=== PATIENT | male | born 1960 | race Caucasian/White ===

== ENCOUNTER 2016-09-06 08:31 | Day surgery (SDC) | payer BC, OTHER ==
[2016-09-06 09:25] VITALS: BMI 29.6
[2016-09-06] MEDS ORDERED: PROPOFOL 20 ML ONE ×3 (09:35)
[2016-09-06 10:46] VITALS: TEMP 98.2
[2016-09-06 11:58] VITALS: BP 120/71; PULSE 77
--- NOTE | 2016-09-09 13:27 | PATH ---
Surgical Pathology Report Patient Name: LUIS MATOS [facility]. Rec. #: [id number] /Age/Gender: 1960 (Age: 55) / M Account: [id number] Location: U-ENDOSCOPY Taken: 09/06/2016 Received: 09/06/2016 Reported: 09/09/2016 Physicians: Arline Aleman M.D. Specimen(s) Received A: RECTAL POLYP B: PROXIMAL TRANSVERSE COLON POLYP C: RIGHT COLON POLYPS D: CECAL POLYPS BIOPSY Clinical History History of polyps, adenoma surveillance Colon polyps, diverticulosis Final Diagnosis A. RECTUM, POLYP, POLYPECTOMY: TUBULAR ADENOMA. B. COLON, PROXIMAL TRANSVERSE, POLYP, BIOPSY AND POLYPECTOMY: FRAGMENTS OF TUBULAR ADENOMA. C. COLON, RIGHT, POLYPS, BIOPSY: TUBULAR ADENOMA. ADDITIONAL POLYPOID FRAGMENT OF COLONIC MUCOSA WITH FOCAL HYPERPLASTIC CHANGE. D. COLON, CECUM, POLYP, BIOPSY: FRAGMENTS OF TUBULAR ADENOMA. Electronically Signed Royce Lora M.D. Gross Description A. Received in formalin, labeled "rectal polyp" is a negrete, irregular portion of soft tissue measuring 0.4 cm in greatest dimension. The specimen is submitted in toto in one cassette. B. Received in formalin, labeled "proximal transverse colon polyp" are 5 negrete, irregular to polypoid portions of soft tissue ranging from 0.2-0.8 cm in greatest dimension. The specimens are submitted in toto in one cassette. C. Received in formalin, labeled "right colon polyps biopsy" are 2 negrete, irregular portions of soft tissue measuring 0.3 and 0.5 cm in greatest dimension. The specimens are submitted in toto in one cassette. D. Received in formalin, labeled "cecal polyp biopsy" are 2 negrete, irregular portions of soft tissue measuring 0.2 and 0.3 cm in greatest dimension. The specimens are submitted in toto in one cassette. 09/06/201609/06/2016
== END 2016-09-06 11:58 | disposition home or self-care (01) ==
LOC: JASU-ENDO 08:31
PROVIDERS: ATTEND Internal Medicine Gastroenterology
PROC: 0DBL8ZX Excision of Transverse Colon, Via Natural or Artificial Opening Endoscopic, Diagnostic (ICD-10-PCS; 2016-09-06)
PROC: 0DBH8ZX Excision of Cecum, Via Natural or Artificial Opening Endoscopic, Diagnostic (ICD-10-PCS; 2016-09-06)
PROC: 0DBK8ZX Excision of Ascending Colon, Via Natural or Artificial Opening Endoscopic, Diagnostic (ICD-10-PCS; 2016-09-06)
PROC: 0DBP8ZX Excision of Rectum, Via Natural or Artificial Opening Endoscopic, Diagnostic (ICD-10-PCS; principal; 2016-09-06 10:00)
DX: Z12.11 Encounter for screening for malignant neoplasm of colon (principal); Z86.010 Personal history of colon polyps; K62.1 Rectal polyp; D12.2 Benign neoplasm of ascending colon; D12.0 Benign neoplasm of cecum; D12.3 Benign neoplasm of transverse colon; K57.30 Diverticulosis of large intestine without perforation or abscess without bleeding
CPT/HCPCS: 88305-TC

== ENCOUNTER 2016-11-09 18:40 | Observation (INO) | payer BC ==
[2016-11-09 18:45] VITALS: BMI 29.7
[2016-11-09] MEDS ORDERED: morphine CARPU-JECT 4 MG/1 ML DISP.SYRIN IVPUSH ONE (18:54)
--- NOTE | 2016-11-09 19:04 | PDOC ---
History of Present Illness - General History Source: Patient Exam Limitations: No Limitations - History of Present Illness Initial Comments: 11/09/16 19:09 The patient is a 56 year old male, with a significant past medical history of COPD, cardiac stents X6, diabetes, hypertension, hyperlipidemia, GERD, Eosinophilic gastritis, and Hepatitis(Grade 2), who presents to the emergency department complaining of RUQ pain since this morning. The patient reports waking up with dull RUQ pain. However, as the day progressed the pain developed into a sharp, constant, pleuritic, and nonradiating. The patient denies any associated nausea, vomiting, diarrhea, or constipation. Prior to presentation in the ED, the patient states he had his tie his shoes, because he was unable to bend over secondary to pain. The patient denies any dysuria, hematuria , frequency, or urgency. The patient denies any chest pain, shortness of breath , diaphoresis, or palpitations. Allergies: None reported. Past Surgical History: Cardiac stents X6, Laminectomy Social History: Former smoker. Denies alcohol or drug use. Family History: Father: Appendectomy PCP: Dr. Ellis <Amy Valladares - Last Filed: 11/09/16 23:52> - General History Source: Patient Exam Limitations: No Limitations <Larry Hobbs - Last Filed: 11/10/16 01:41> <Varsha Rutherford - Last Filed: 11/11/16 01:34> - General Chief Complaint: Pain Stated Complaint: PAIN, ACUTE Time Seen by Provider: 11/09/16 18:51 Past History <Amy Valladares - Last Filed: 11/09/16 23:52> - Past Medical History Anemia: No Asthma: No Cancer: No Cardiac Disorders: Yes (ASHD.CT-6 STENTS) CVA: No COPD: Yes CHF: No Dementia: No Diabetes: No GI Disorders: Yes (GERD,EOSINOPHILIC GASTRITIS) Disorders: No HTN: No Hypercholesterolemia: Yes Liver Disease: Yes (MILD HEPATITIS GRADE 2) Seizures: No Thyroid Disease: No - Surgical History Abdominal Surgery: No Appendectomy: No Cardiac Surgery: Yes (6 CARDIAC STENTS) Cholecystectomy: No Lung Surgery: No Neurologic Surgery: No Orthopedic Surgery: Yes (LAMINECTOMY) - Psycho/Social/Smoking Cessation Hx Suicidal Ideation: No Smoking Status: No Smoking History: Never smoked Have you smoked in the past 12 months: No Number of Cigarettes Smoked Daily: 2 If you are a former smoker, when did you quit?: 2007 Information on smoking cessation initiated: No Hx Alcohol Use: No Drug/Substance Use Hx: No Substance Use Type: None Hx Substance Use Treatment: No <FabyLarry - Last Filed: 11/10/16 01:41> <Varsha Rutherford - Last Filed: 11/11/16 01:34> - Past Medical History Allergies/Adverse Reactions: Allergies Allergy/AdvReac Type Severity Reaction Status Date / Time No Known Drug Allergies Allergy Verified 11/09/16 18:46 Home Medications: Ambulatory Orders Metoprolol Succinate [Toprol XL -] 25 mg PO DAILY #0 tab.sr.24h 10/31/11 Montelukast Na [Singulair -] 10 mg PO DAILY #0 tablet 10/31/11 Alprazolam [Xanax] 0.25 mg PO PRN PRN 04/05/14 Ramipril 2.5 mg PO DAILY 04/05/14 Rosuvastatin [Crestor -] 10 mg PO DAILY 05/11/16 Aspirin [Baby Aspirin] 81 mg PO Q2D 09/06/16 Carisoprodol [Soma] 350 mg PO PRN PRN 09/06/16 Cholecalciferol (Vitamin D3) [Vitamin D -] 400 unit PO DAILY 09/06/16 Diltiazem HCl [Cartia Xt] 120 mg PO DAILY 09/06/16 Niacin (Inositol Niacinate) [Niacin 500 mg Capsule] 500 mg PO DAILY 09/06/16 Prasugrel HCl [Effient] 5 mg PO DAILY #0 09/06/16 Pregabalin [Lyrica -] 200 mg PO ASDIR 09/06/16 Pregabalin [Lyrica] 100 mg PO AM 09/06/16 Salmeterol/Fluticasone [Advair 100Mcg/50Mcg -] 1 inh IH DAILY 09/06/16 Tiotropium [place] [Spiriva] 1 inh PO BID 09/06/16 Review of Systems - Review of Systems Able to Perform ROS?: Yes Comments:: 11/09/16 19:09 GENERAL/CONSTITUTIONAL: No fever or chills. No weakness. HEAD, EYES, EARS, NOSE AND THROAT: No change in vision. No ear pain or discharge. No sore throat. CARDIOVASCULAR: No chest pain or shortness of breath. RESPIRATORY: No cough, wheezing, or hemoptysis. GASTROINTESTINAL: Yes: RUQ pain. No nausea, vomiting, diarrhea or constipation. GENITOURINARY: No dysuria, frequency, or change in urination. MUSCULOSKELETAL: No joint or muscle swelling or pain. No neck or back pain. SKIN: No rash NEUROLOGIC: No headache, vertigo, loss of consciousness, or change in strength/ sensation. ENDOCRINE: No increased thirst. No abnormal weight change. HEMATOLOGIC/LYMPHATIC: No anemia, easy bleeding, or history of blood clots. ALLERGIC/IMMUNOLOGIC: No hives or skin allergy. <Amy Valladaers - Last Filed: 11/09/16 23:52> *Physical Exam - Vital Signs Last Vital Signs Temp Pulse Resp BP Pulse Ox 98.7 F 89 18 120/77 98 11/09/16 18:42 11/09/16 18:42 11/09/16 18:42 11/09/16 18:42 11/09/16 18:42 - Physical Exam Comments: 11/09/16 19:10 GENERAL: Awake, alert, and fully oriented, in no acute distress HEAD: No signs of trauma EYES: PERRLA, EOMI, sclera anicteric, conjunctiva clear ENT: Auricles normal inspection, hearing grossly normal, nares patent, oropharynx clear without exudates. Moist mucosa NECK: Normal ROM, supple, no lymphadenopathy, JVD, or masses LUNGS: Breath sounds equal, clear to auscultation bilaterally. No wheezes, and no crackles HEART: Regular rate and rhythm, normal S1 and S2, no murmurs, rubs or gallops ABDOMEN: RUQ tenderness. Sunray sign positive. Normoactive bowel sounds. No guarding, no rebound. No masses EXTREMITIES: Normal range of motion, no edema. No clubbing or cyanosis. No cords, erythema, or tenderness NEUROLOGICAL: Cranial nerves II through XII grossly intact. Normal speech, normal gait SKIN: Warm, Dry, normal turgor, no rashes or lesions noted. <Amy Valladares - Last Filed: 11/09/16 23:52> - Vital Signs Last Vital Signs Temp Pulse Resp BP Pulse Ox 98.7 F 89 18 120/77 98 04/15/17 18:42 11/09/16 18:42 11/09/16 18:42 11/09/16 18:42 11/09/16 18:42 <Larry Hobbs - Last Filed: 11/10/16 01:41> - Vital Signs Last Vital Signs Temp Pulse Resp BP Pulse Ox 98.7 F 89 18 120/77 98 11/09/16 18:42 11/09/16 18:42 11/09/16 18:42 11/09/16 18:42 11/09/16 19:01 <Varsha Rutherford - Last Filed: 11/11/16 01:34> Heart Score/ECG Review #1 ECG reviewed & interpreted by me at: 19:20 11/09/16 19:26 NSR 82, no std/marybeth, normal axis, normal intervals, QTC 460 msec <Larry Hobbs - Last Filed: 11/10/16 01:41> ED Treatment Course - LABORATORY CBC & Chemistry Diagram: 11/09/16 19:25 11/09/16 19:25 - RADIOLOGY Radiograph Interpretation: 11/09/16 23:52 EXAM: CT Abdomen and Pelvis INTERPRETED BY: Dr. Murry REVIEWED BY: Dr. Hobbs IMPRESSION: There is no hydronephrosis. There is no ureteral dilatation. There are no renal or ureteral calculi seen. There are no obvious gallstones. No AAA There is moderately abundant stool noted in the right colon. There is no evidence of intestinal obstruction. The appendix is normal in size. Urinary bladder is partially decompressed. There are no bladder calculi. EXAM: Abdominal US INTERPRETED BY: Dr. Murry REVIEWED BY: Dr. Hobbs IMPRESSION: Visualized hepatic parenchyma is echogenic suggesting fatty change in the liver. There are no obvious gallstones. Gallbladder wall is normal in thickness. Common bile duct diameter within normal limits. The pancreas is not well-seen. There is no hydronephrosis on the right. Proximal abdominal aorta has AP dimension of 1.9 cm. <Amy Valladares - Last Filed: 11/09/16 23:52> - LABORATORY CBC & Chemistry Diagram: 11/09/16 19:25 11/09/16 19:25 - RADIOLOGY Radiology Studies Ordered: Category Date Time Status SPIRAL- RENAL-STONE CT [CT] Stat CT Scan 11/09/16 18:54 Ordered ABDOMEN US -LIMITED [US] Stat Ultrasound 11/09/16 18:54 Ordered <Larry Hobbs - Last Filed: 11/10/16 01:41> - LABORATORY CBC & Chemistry Diagram: 11/10/16 06:45 11/09/16 19:25 - ADDITIONAL ORDERS Additional order review: Laboratory Results 11/10/16 11/09/16 11/09/16 03:30 19:30 19:25 INR PTT (Actin FS) Sodium 141 Potassium 4.0 Chloride 104 Carbon Dioxide 26 Anion Gap 11 BUN 9 D Creatinine 0.7 Creat Clearance w eGFR > 60 Random Glucose 82 D Lactic Acid 1.277 Calcium 8.9 Total Bilirubin 0.5 AST 28 ALT 44 Alkaline Phosphatase 94 Creatine Kinase 149 Troponin I < 0.02 Total Protein 7.1 Albumin 3.9 Lipase 138 Urine Color Ltyellow Urine Appearance Clear Urine pH 6.0 Ur Specific [place] 1.011 Urine Protein Negative Urine Glucose (UA) Negative Urine Ketones Negative Urine Blood 1+ H Urine Nitrite Negative Urine Bilirubin Negative Urine Urobilinogen Negative Ur Leukocyte Esterase Negative Urine RBC 7 Urine WBC <1 Hyaline Casts 1 11/09/16 19:25 INR 1.12 PTT (Actin FS) 36.8 H Sodium Potassium Chloride Carbon Dioxide Anion Gap BUN Creatinine Creat Clearance w eGFR Random Glucose Lactic Acid Calcium Total Bilirubin AST ALT Alkaline Phosphatase Creatine Kinase Troponin I Total Protein Albumin Lipase Urine Color Urine Appearance Urine pH Ur Specific [place] Urine Protein Urine Glucose (UA) Urine Ketones Urine Blood Urine Nitrite Urine Bilirubin Urine Urobilinogen Ur Leukocyte Esterase Urine RBC Urine WBC Hyaline Casts 11/09/16 19:25 RBC 5.38 MCV 82.2 MCHC 33.6 RDW 14.8 MPV 7.2 L Neutrophils % 84.1 H Lymphocytes % 8.3 D Monocytes % 5.8 D Eosinophils % 1.5 Basophils % 0.3 - Medications Given in the ED: ED Medications Discontinued Medications Generic Name Dose Route Start Last Admin Trade Name Freq PRN Reason Stop Dose Admin Acetaminophen 1,000 mg 11/09/16 19:28 11/09/16 20:03 Ofirmev Injection - IVPB 11/09/16 19:29 1,000 mg ONCE ONE Administration Cefoxitin Sodium 2 gm 11/10/16 02:05 11/10/16 06:27 Mefoxin (Restricted To Id) - IVPB 11/10/16 02:06 Not Given ONCE ONE Protocol Famotidine/Sodium Chloride 50 mls @ 100 mls/hr 11/09/16 23:33 11/10/16 00:00 Pepcid 20 Mg Premixed Ivpb - IVPB 11/10/16 00:02 100 mls/hr ONCE ONE Administration Cefoxitin Sodium 2 gm/ 100 mls @ 200 mls/hr 11/10/16 03:45 11/10/16 04:04 Dextrose IVPB 11/10/16 04:14 200 mls/hr ONCE ONE Administration Magnesium Citrate 300 ml 11/09/16 23:49 11/10/16 00:00 Citroma - PO 11/09/16 23:50 300 ml ONCE ONE Administration Morphine Sulfate 4 mg 11/09/16 18:54 11/09/16 20:02 Morphine Injection - IVPUSH 11/09/16 18:55 4 mg ONCE ONE Administration Morphine Sulfate 4 mg 11/10/16 01:02 11/10/16 03:58 Morphine Injection - IVPUSH 11/10/16 01:03 4 mg ONCE ONE Administration Ondansetron HCl 4 mg 11/09/16 19:57 11/09/16 20:03 Zofran Injection IVPB 11/09/16 19:58 4 mg ONCE ONE Administration Polyethylene Glycol 17 gm 11/10/16 01:21 11/10/16 06:27 Miralax (For Daily Use) - PO 11/10/16 01:22 Not Given ONCE ONE <Varsha Rutherford - Last Filed: 11/11/16 01:34> Medical Decision Making - Medical Decision Making 11/09/16 19:03 A portion of this note was documented by scribe services under my direction. I have reviewed the details of the note, within reason, and agree with the documentation with the following case summary and management plan written by me. Patient treated in the ED. Nursing notes are reviewed and incorporated into the medical decision-making. Vital signs reviewed. Peripheral IV access obtained by the nurse, laboratory studies are drawn and sent, reviewed and interpreted by myself. Vital Signs Temp Pulse Resp BP Pulse Ox 98.7 F 89 18 120/77 98 11/09/16 18:42 11/09/16 18:42 11/09/16 18:42 11/09/16 18:42 11/09/16 18:42 56-year-old male with past medical history of hypertension, diabetes, hyperlipidemia, coronary disease status post 6 stents, COPD presents with right upper quadrant and right-sided pain. Patient reports that he woke up with this pain. Describes it as constant. No associated nausea, vomiting, diarrhea. Denies hematuria or dysuria or fevers. Differential includes renal colic, biliary colic, gastritis, pancreatitis. We' ll obtain labs and obtain imaging including CAT scan and ultrasound. 11/10/16 01:18 CBC, BMP 11/09/16 19:25 11/09/16 19:25 CMP Sodium 141 mmol/L (136-145) 11/09/16 19:25 Potassium 4.0 mmol/L (3.5-5.1) 11/09/16 19:25 Chloride 104 mmol/L (98-107) 11/09/16 19:25 Carbon Dioxide 26 mmol/L (21-32) 11/09/16 19:25 Anion Gap 11 (8-16) 11/09/16 19:25 BUN 9 mg/dL (7-18) D 11/09/16 19:25 Creatinine 0.7 mg/dL (0.7-1.3) 11/09/16 19:25 Creat Clearance w eGFR > 60 (>60) 11/09/16 19:25 Random Glucose 82 mg/dL (74-106) D 11/09/16 19:25 Calcium 8.9 mg/dL (8.5-10.1) 11/09/16 19:25 Total Bilirubin 0.5 mg/dL (0.2-1.0) 11/09/16 19:25 AST 28 U/L (15-37) 11/09/16 19:25 ALT 44 U/L (12-78) 11/09/16 19:25 Alkaline Phosphatase 94 U/L (45-117) 11/09/16 19:25 Creatine Kinase 149 IU/L (39-308) 11/09/16 19:25 Troponin I < 0.02 ng/ml (0.00-0.05) 11/09/16 19:25 Total Protein 7.1 g/dl (6.4-8.2) 11/09/16 19:25 Albumin 3.9 g/dl (3.4-5.0) 11/09/16 19:25 Lipase 138 U/L (73-393) 11/09/16 19:25 Urine Test Results Urine Color Ltyellow 11/09/16 19:30 Urine Appearance Clear 11/09/16 19:30 Urine pH 6.0 (5.0-8.0) 11/09/16 19:30 Ur Specific [place] 1.011 (1.001-1.035) 11/09/16 19:30 Urine Protein Negative (NEGATIVE) 11/09/16 19:30 Urine Glucose (UA) Negative (NEGATIVE) 11/09/16 19:30 Urine Ketones Negative (NEGATIVE) 11/09/16 19: Urine Blood 1+ (NEGATIVE) H 11/09/16 19:30 Urine Nitrite Negative (NEGATIVE) 11/09/16 19: Urine Bilirubin Negative (NEGATIVE) 11/09/16 19:30 Ur Leukocyte Esterase Negative (NEGATIVE) 11/09/16 19:30 Urine RBC 7 /hpf (0-3) 11/09/16 19:30 Urine WBC <1 /hpf (3-5) 11/09/16 19:30 CAT scan the abdomen pelvis noncontrast demonstrated stooling in the right side of the colon but no acute pathology. Patient's ultrasound demonstrates no gallstones. Initially, patient was given magnesium citrate and pepcid, but no improvement in symptoms. Will consider with IV contrast CT scan of abdomen and pelvis to further evaluate abdomen given persistent abdominal pain and WBC of 19. 11/10/16 01:41 Case signed out to oncoming ED attending Dr. Rutherford for further management and disposition. <Larry Hobbs - Last Filed: 11/10/16 01:41> - Medical Decision Making 11/10/16 06:43 Pt was signed out to me. He has a WBC of 19 and he has abd pain. Nothing on sono abdomen and non-contrast CT and/pelvis. Dr. Hbobs ordered an oral/IV contrast CT abd pelvis. I treated pt with mefoxin 2 g and sent off lactic acid. Lactic acid is normal. Pt's CT scan result is normal: Patient Name: Sascha oLng THIS IS A PRELIMINARYREPORT FROM [facility] EXAM: CT abdomen and pelvis with contrast IMAGES: 555 INDICATION: Rule out appendicitis DATE OF SERVICE: 2016-11-10 06:03:20.0 COMPARISON: none FINDINGS : Lung bases are clear. The visualized cardiac chambers are normal size and configuration. Minimal pericardial effusion is noted. Normal liver, gallbladder , pancreas, spleen, adrenal glands and kidneys. The stomach and abdominal small and large bowel are normal. There is no aortic aneurysm. There is no significant retroperitoneal lymphadenopathy. The pelvic small and large bowel are normal. The appendix is normal. The urinary bladder and prostate gland are normal. No pelvic free fluid is identified. There is no significant pelvic lymphadenopathy. Small fat containing bilateral inguinal hernias are noted. IMPRESSION: No evidence of acute pathology. THIS DOCUMENT HAS BEEN ELECTRONICALLY SIGNED We will repeat CBC. If WBC is coming down and pt is feeling better, then we will send pt home with PMD and GI fllow up. I will sign patient out to the day ER doctor. 11/10/16 07:03 WBC came back and pt still complains of pain; I will call Dr. Ellis and admit patient to observation for GI consult and further eval of his pain. 11/11/16 01:34 Pt was admitted to Dr. Sharp. <Varsha Rutherford - Last Filed: 11/11/16 01:34> *DC/Admit/Observation/Transfer - Attestations Scribe Attestion: 11/09/16 19:10 Documentation prepared by Amy Valladares, acting as medical assembly for Larry Hobbs MD. <Amy Valladares - Last Filed: 11/09/16 23:52> <Larry Hobbs - Last Filed: 11/10/16 01:41> - Discharge Dispostion Admit: Yes <Varsha Rutherford - Last Filed: 11/11/16 01:34> Diagnosis at time of Disposition: Abdominal pain Qualifiers: Abdominal location: unspecified location Qualified Code(s): R10.9 - Unspecified abdominal pain - Referrals
[2016-11-09] MEDS ORDERED: ACETAMINOPHEN 1000 MG/100 ML VIAL (NON FORMULARY) IVPB ONE (19:28)
[2016-11-09] MEDS ORDERED: ACETAMINOPHEN INJECTION 100 ML IVPB ONE (19:31)
[2016-11-09 19:34] LABS: BASOPHIL 0.3 % (0-2.0); EOSINOPHIL 1.5 % (0-4.5); MCH 27.6 pg (25.7-33.7); MCHC 33.6 g/dl (32.0-35.9); MEAN CELL VOLUME 82.2 fl (80-96); MEAN PLT VOLUME 7.2 fl (7.5-11.1); NEUTROPHILS 84.1 % (42.8-82.8); PLATELET COUNT 288 K/MM3 (134-434); RDW 14.8 % (11.9-15.9)
[2016-11-09 19:45] LABS: URINE APPEARANCE CLEAR; URINE BILIRUBIN NEGATIVE (NEGATIVE); URINE COLOR LTYELLOW; URINE GLUCOSE (UA) NEGATIVE (NEGATIVE); URINE KETONE NEGATIVE (NEGATIVE); URINE LEUK ESTERASE NEGATIVE (NEGATIVE); URINE NITRITE NEGATIVE (NEGATIVE); URINE PROTEIN NEGATIVE (NEGATIVE); URINE UROBILINOGEN NEGATIVE E.U./dl (0.2-1.0)
[2016-11-09 19:46] LABS: INR 1.12 (0.82-1.09); PROTHROMBIN TIME (PATIENT) 12.4 SEC (9.98-11.88)
[2016-11-09 19:47] LABS: URINE BLOOD 1+ (NEGATIVE)
[2016-11-09 19:48] LABS: URINE HYALINE CAST 1 /lpf; URINE RBC 7 /hpf (0-3); URINE WBC <1 /hpf (3-5)
[2016-11-09 19:49] LABS: ACTIVATED PTT 36.8 SECONDS (26.9-34.4)
[2016-11-09] MEDS ORDERED: ONDANSETRON 4 MG/2 ML VIAL ONE (19:51)
[2016-11-09] MEDS ORDERED: morphine CARPU-JECT 4 MG/1 ML DISP.SYRIN ONE (19:56)
[2016-11-09] MEDS ORDERED: ONDANSETRON 4 MG/2 ML VIAL IVPB ONE (19:57)
[2016-11-09 20:07] LABS: ALBUMIN 3.9 g/dl (3.4-5.0); ANION GAP 11 (8-16); BILIRUBIN,TOTAL 0.5 mg/dL (0.2-1.0); CALCIUM 8.9 mg/dL (8.5-10.1); CO2 26 mmol/L (21-32); COCKROFT - GAULT 143.63; CREATININE 0.7 mg/dL (0.7-1.3); GLUCOSE,RANDOM 82 mg/dL (74-106); SGOT/AST 28 U/L (15-37); SGPT/ALT 44 U/L (12-78); TOT PROT 7.1 g/dl (6.4-8.2)
[2016-11-09 20:09] LABS: ALK PHOS 94 U/L (45-117); TROPONIN I < 0.02 ng/ml (0.00-0.05)
[2016-11-09] MEDS ORDERED: FAMOTIDINE 20 MG/50 ML IVPB 50 ML IVPB ONE ×2 (23:33→23:52)
[2016-11-09] MEDS ORDERED: ACETAMINOPHEN 325 MG TABLET (FP) PO ONE (23:33)
[2016-11-09] MEDS ORDERED: MAG HYDROX/AL HYDROX/SIMETH 30 ML UNIT-DOSE CUP PO ONE (23:33)
[2016-11-09] MEDS ORDERED: MAGNESIUM CITRATE 300 ML BOTTLE PO ONE (23:49)
[2016-11-09] MEDS ORDERED: MAGNESIUM CITRATE 300 ML BOTTLE ONE (23:52)
[2016-11-10] MEDS ORDERED: morphine CARPU-JECT 4 MG/1 ML DISP.SYRIN IVPUSH ONE (01:02)
[2016-11-10] MEDS ORDERED: POLYETHYLENE GLYCOL 3350 119 GM BTL PO ONE (01:21)
[2016-11-10] MEDS ORDERED: cefOXitin SODIUM 2 GM VIAL (RESTRICTED TO ID) IVPB ONE (02:05)
[2016-11-10] MEDS ORDERED: CEFOXITIN SODIUM 2 GM in DEXTROSE 5%-WATER - 100 ML IVPB ONE (03:45)
[2016-11-10] MEDS ORDERED: morphine CARPU-JECT 4 MG/1 ML DISP.SYRIN ONE (03:46)
[2016-11-10 06:55] LABS: BASOPHIL 0.4 % (0-2.0); EOSINOPHIL 1.8 % (0-4.5); MCHC 33.6 g/dl (32.0-35.9); MEAN CELL VOLUME 83.3 fl (80-96); MEAN PLT VOLUME 7.3 fl (7.5-11.1); NEUTROPHILS 83.9 % (42.8-82.8); PLATELET COUNT 263 K/MM3 (134-434); RDW 15.2 % (11.9-15.9); WHITE BLOOD COUNT 12.7 K/mm3 (4.0-10.0)
[2016-11-10] MEDS ORDERED: ALPRAZolam 0.25 MG TABLET PO PRN (08:08)
[2016-11-10] MEDS ORDERED: PATIENT'S OWN MEDICATION (NON-FORMULARY) (Carisoprodol [Soma] 350 MG) PO PRN (08:08)
[2016-11-10] MEDS ORDERED: NIACIN PO SCH (10:00)
[2016-11-10] MEDS ORDERED: TIOTROPIUM BROMIDE 18 MCG/INH (DEVICE W/ 5 CAPSULES) IH SCH (10:00)
[2016-11-10] MEDS: METOPROLOL SUCCINATE 25 MG TAB.SR.24H (FP) PO SCH (11:12)
[2016-11-10] MEDS: PANTOPRAZOLE 40 MG TABLET (FP) PO SCH (11:12)
[2016-11-10] MEDS: ASPIRIN 81 MG CHEWABLE TABLETS PO SCH (11:13)
[2016-11-10] MEDS: RAMIPRIL 2.5 MG CAPSULE (FP) PO SCH (11:13)
--- NOTE | 2016-11-10 11:31 | HP ---
Admitting History and Physical - Admission Chief Complaint: abd pain History of Present Illness: 56 yo male, h/o CAD, HTN, hyperlipidemia, back pain, presents with right sided abd pain. Was feeling fine until yesterday. Pain started in morning and gradually progressed. Does note that had increased bowel movements yesterday and did have vomiting in ED. No fevers, no blood per rectum. Had CT scan in ED , which was unremarkable, no rash noted on skin. 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 Home Medications - Allergies Allergies/Adverse Reactions: Allergies Allergy/AdvReac Type Severity Reaction Status Date / Time No Known Drug Allergies Allergy Verified 11/09/16 18:46 - Home Medications Home Medications: Ambulatory Orders Metoprolol Succinate [Toprol XL -] 25 mg PO DAILY #0 tab.sr.24h 10/31/11 Montelukast Na [Singulair -] 10 mg PO DAILY #0 tablet 10/31/11 Alprazolam [Xanax] 0.25 mg PO PRN PRN 04/05/14 Ramipril 2.5 mg PO DAILY 04/05/14 Rosuvastatin [Crestor -] 10 mg PO DAILY 05/11/16 Aspirin [Baby Aspirin] 81 mg PO Q2D 09/06/16 Carisoprodol [Soma] 350 mg PO PRN PRN 09/06/16 Cholecalciferol (Vitamin D3) [Vitamin D -] 400 unit PO DAILY 09/06/16 Diltiazem HCl [Cartia Xt] 120 mg PO DAILY 09/06/16 Niacin (Inositol Niacinate) [Niacin 500 mg Capsule] 500 mg PO DAILY 09/06/16 Prasugrel HCl [Effient] 5 mg PO DAILY #0 09/06/16 Pregabalin [Lyrica -] 200 mg PO ASDIR 09/06/16 Pregabalin [Lyrica] 100 mg PO AM 09/06/16 Salmeterol/Fluticasone [Advair 100Mcg/50Mcg -] 1 inh IH DAILY 09/06/16 Tiotropium [place] [Spiriva] 1 inh PO BID 09/06/16 Family Disease History - Family Disease History Family Disease History: CA: Father, Mother Review of Systems - Review of Systems Constitutional: denies: Fever, Lethargy Eyes: reports: No Symptoms HENT: denies: Difficult Swallowing Cardiovascular: denies: Chest Pain, Palpitations Respiratory: denies: Cough, SOB, Wheezing Genitourinary: denies: Burning, Discharge, Dysuria Physical Examination Vital Signs: Vital Signs Temperature 98.7 F 11/09/16 18:42 Pulse Rate 60 11/10/16 09:03 Respiratory Rate 17 11/10/16 09:03 Blood Pressure 103/69 11/10/16 09:03 O2 Sat by Pulse Oximetry (%) 95 11/10/16 09:03 Constitutional: Yes: Well Nourished, No Distress, Calm Eyes: Yes: Conjunctiva Clear, EOM Intact, PERRL HENT: Yes: Atraumatic, Normocephalic Neck: Yes: Supple, Trachea Midline Cardiovascular: Yes: Regular Rate and Rhythm, S1, S2. No: Murmur Respiratory: Yes: Regular, CTA Bilaterally. No: Rales, Rhonchi, Wheezes Gastrointestinal: Yes: Normal Bowel Sounds, Soft, Tenderness (right abdomen). No: Distention Edema: No Imaging - Results Cat Scan: Other (preliminary CT results -no colitis, no obstruction, no adenoapthy, no appendicitis, no cholecystitis, no nephrolithiasis) Problem List - Problems (1) Abdominal pain Assessment/Plan: -admitted under observation,k with elevated WBC and continued abd pain -?viral gastroenteritis -GI to evaluate, watch for further symptoms or decompensation for now Code(s): R10.9 - UNSPECIFIED ABDOMINAL PAIN Qualifiers: Abdominal location: unspecified location Qualified Code(s): R10.9 - Unspecified abdominal pain (2) Coronary artery disease Assessment/Plan: -no apparent acute events contributing to symptoms -cont current meds Code(s): I25.10 - ATHSCL HEART DISEASE OF [place] CORONARY ARTERY W/O ANG PCTRS (3) Back pain Assessment/Plan: -stable -does not appear to be related to abd pain Code(s): M54.9 - DORSALGIA, UNSPECIFIED
--- NOTE | 2016-11-10 12:15 | CON.GI ---
Consult Consult Specialty:: GI Referred by:: Dr. 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 Cardio/Vascular: Yes: CAD, HTN, Hyperlipdemia Pulmonary: Yes: COPD Musculoskeletal: Yes: Chronic low back pain (/ spinal stenosis) Endocrine: Yes: Other (glucose intolerance) - Past Surgical History Past Surgical History: Yes: Laminectomy (Lumbar), Tonsillectomy - Alcohol/Substance Use Hx Alcohol Use: No - Smoking History Smoking history: Never smoked Have you smoked in the past 12 months: No Aproximately how many cigarettes per day: 2 If you are a former smoker, when did you quit?: 2007 - Social History Usual Living Arrangement: With Spouse ADL: Independent 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, 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 Place of : [facility] History of Recent Travel: No Home Medications - Allergies Allergies/Adverse Reactions: Allergies Allergy/AdvReac Type Severity Reaction Status Date / Time No Known Drug Allergies Allergy Verified 11/09/16 18:46 - Home Medications Home Medications: Ambulatory Orders Metoprolol Succinate [Toprol XL -] 25 mg PO DAILY #0 tab.sr.24h 10/31/11 Montelukast Na [Singulair -] 10 mg PO DAILY #0 tablet 10/31/11 Alprazolam [Xanax] 0.25 mg PO PRN PRN 04/05/14 Ramipril 2.5 mg PO DAILY 04/05/14 Rosuvastatin [Crestor -] 10 mg PO DAILY 05/11/16 Aspirin [Baby Aspirin] 81 mg PO Q2D 09/06/16 Carisoprodol [Soma] 350 mg PO PRN PRN 09/06/16 Cholecalciferol (Vitamin D3) [Vitamin D -] 400 unit PO DAILY 09/06/16 Diltiazem HCl [Cartia Xt] 120 mg PO DAILY 09/06/16 Niacin (Inositol Niacinate) [Niacin 500 mg Capsule] 500 mg PO DAILY 09/06/16 Prasugrel HCl [Effient] 5 mg PO DAILY #0 09/06/16 Pregabalin [Lyrica -] 200 mg PO ASDIR 09/06/16 Pregabalin [Lyrica] 100 mg PO AM 09/06/16 Salmeterol/Fluticasone [Advair 100Mcg/50Mcg -] 1 inh IH DAILY 09/06/16 Tiotropium [place] [Spiriva] 1 inh PO BID 09/06/16 Family Disease History - Family Disease History Family Disease History: CA: Father (Alive: renal cancer, colon polyps), Mother ( Alive: uterine cancer), Other: Brother (1 brother: healthy), Son (1 son: healthy ) Other Family History: No family history of colorectal cancer Review of Systems - Review of Systems Constitutional: denies: Chills, Fever, Loss of Appetite, Unintentional Wgt. Loss Respiratory: denies: Cough Gastrointestinal: reports: Abdominal Pain, Vomiting (only after given morphine in the ER). denies: Constipation, Diarrhea, Melena, Rectal Bleeding Physical Exam-GI Vital Signs: Vital Signs Temperature 98.7 F 11/09/16 18:42 Pulse Rate 60 11/10/16 09:03 Respiratory Rate 17 11/10/16 09:03 Blood Pressure 103/69 11/10/16 09:03 O2 Sat by Pulse Oximetry (%) 95 11/10/16 09:03 Constitutional: Yes: Calm Eyes: No: Sclera Icterus Cardiovascular: Yes: Regular Rate and Rhythm. No: Murmur Respiratory: Yes: CTA Bilaterally Gastrointestinal Inspection: No: Distention, Scars ...Auscultate: Yes: Normoactive Bowel Sounds ...Palpate: Yes: Tenderness (mild TTP mid right abdomen. Of note, negative mello's sign). No: Guarding, Hepatomegaly, Splenomegaly, Tenderness, Rebound ...Percussion: No: Tympanitic ...Rectal Exam: Yes: Guaiac Negative (light brown stool), Sphincter Tone Normal. No: Mass Edema: Yes (trace LE edema) Neurological: Yes: Alert, Oriented Labs: INR, PTT INR 1.12 (0.82-1.09) 11/09/16 19:25 CBC, BMP 11/10/16 06:45 11/09/16 19:25 Laboratory Tests 11/09/16 11/10/16 19:25 06:45 WBC 19.0 H 12.7 H D Problem List - Problems (1) Abdominal pain Assessment/Plan: Abdominal imaging on admission not yielding anymore information in terms of a source of pain. Gallbladder appears normal and he does not have a mello's sign on exam. He does have the finding of diverticulosis on recent colonoscopy. the focal nature of the pain along with lack of other symptomatology (ie diarrhea, vomiting) makes an acute gastroenteritis less likely. A spigelian hernia not appreciated on CT scan and no inflammatory changes to suggest a right sided colitis / enteritis. the IC valve appeared prominent however Mr. Nithya Fernandez had a recent colonoscopy 09/13 and no significant IC valve findings mentioned in report. ? if he is experiencing a mild acute diverticulitis. He appears non toxic and the pain is improved. Would treat for possible diverticulitis. Changed to Clear liquids. Added levaquin/flagyl AM labs If pain worsens, consider surgical evaluation Code(s): R10.9 - UNSPECIFIED ABDOMINAL PAIN Qualifiers: Abdominal location: unspecified location Qualified Code(s): R10.9 - Unspecified abdominal pain
--- NOTE | 2016-11-10 14:22 | EKG ---
Test Reason : Blood Pressure : / mmHG Vent. Rate : 082 BPM Atrial Rate : 082 BPM P-R Int : 136 ms QRS Dur : 090 ms QT Int : 402 ms P-R-T Axes : 033 062 040 degrees QTc Int : 469 ms NORMAL SINUS RHYTHM POSSIBLE LEFT ATRIAL ENLARGEMENT NONSPECIFIC T WAVE ABNORMALITY BORDERLINE ECG WHEN COMPARED WITH ECG OF 10-MAY-2016 23:12, NO SIGNIFICANT CHANGE WAS FOUND CLINICAL CORRELATION IS RECOMMENDED BASELINE ARTIFACT Confirmed by SHAUNA GRANDA MD ([id number]) on 11/10/2016 2:22:02 PM Referred By: Confirmed By:SHAUNA GRANDA MD
[2016-11-10] MEDS: LEVOFLOXACIN 500 MG IVPB 100 ML IVPB SCH (16:23)
[2016-11-10] MEDS: PRASUGREL HCL 5 MG TAB PO SCH (16:24)
[2016-11-10] MEDS: CHOLECALCIFEROL (VITAMIN D3) 400 UNIT TABLET (FP) PO SCH (16:25)
[2016-11-10] MEDS: FLUTICASONE/SALMETEROL 100 MCG/50 MCG DISKUS IH SCH (16:25)
[2016-11-10] MEDS: METRONIDAZOLE 500 MG PREMIXED 100 ML IVPB SCH (18:03)
[2016-11-10] MEDS: MONTELUKAST NA 10 MG TABLET PO SCH (21:42)
[2016-11-10] MEDS: PREGABALIN 50 MG CAPSULE PO SCH (21:42)
[2016-11-10] MEDS: ROSUVASTATIN CA 10 MG TABLET (FP) PO SCH (21:42)
[2016-11-10] MEDS: ACLIDINIUM BROMIDE 400 MCG/INH AERO.POWD IH SCH (21:43)
[2016-11-11] MEDS: METRONIDAZOLE 500 MG PREMIXED 100 ML IVPB SCH ×3 (01:18→18:21)
[2016-11-11] MEDS: PREGABALIN 50 MG CAPSULE PO SCH ×2 (06:00→23:12)
[2016-11-11 08:21] LABS: BASOPHIL 0.3 % (0-2.0); EOSINOPHIL 2.2 % (0-4.5); MCH 27.8 pg (25.7-33.7); MEAN CELL VOLUME 84.2 fl (80-96); MEAN PLT VOLUME 7.5 fl (7.5-11.1); NEUTROPHILS 79.8 % (42.8-82.8); PLATELET COUNT 253 K/MM3 (134-434); WHITE BLOOD COUNT 12.3 K/mm3 (4.0-10.0)
[2016-11-11 09:01] LABS: ALBUMIN 3.8 g/dl (3.4-5.0); ALK PHOS 88 U/L (45-117); ANION GAP 10 (8-16); BILIRUBIN,TOTAL 0.8 mg/dL (0.2-1.0); CALCIUM 9.1 mg/dL (8.5-10.1); CO2 29 mmol/L (21-32); COCKROFT - GAULT 125.68; CREATININE 0.8 mg/dL (0.7-1.3); GLUCOSE,RANDOM 96 mg/dL (74-106); SGOT/AST 26 U/L (15-37); SGPT/ALT 44 U/L (12-78); TOT PROT 6.7 g/dl (6.4-8.2)
[2016-11-11] MEDS ORDERED: PT OWN MED DRAWER 7, Y5N ONE (09:08)
[2016-11-11] MEDS: RAMIPRIL 2.5 MG CAPSULE (FP) PO SCH (09:30)
[2016-11-11] MEDS: FLUTICASONE/SALMETEROL 100 MCG/50 MCG DISKUS IH SCH (09:30)
[2016-11-11] MEDS: METOPROLOL SUCCINATE 25 MG TAB.SR.24H (FP) PO SCH (09:31)
[2016-11-11] MEDS: LEVOFLOXACIN 500 MG IVPB 100 ML IVPB SCH (09:31)
[2016-11-11] MEDS: PANTOPRAZOLE 40 MG TABLET (FP) PO SCH (09:31)
[2016-11-11] MEDS: PRASUGREL HCL 5 MG TAB PO SCH (09:32)
[2016-11-11] MEDS: ACLIDINIUM BROMIDE 400 MCG/INH AERO.POWD IH SCH ×2 (09:32→23:13)
[2016-11-11] MEDS: CHOLECALCIFEROL (VITAMIN D3) 400 UNIT TABLET (FP) PO SCH (09:33)
--- NOTE | 2016-11-11 12:42 | PN ---
Progress Note (short form) - Note Progress Note: patient just admitted to the hospital for severe unrelenting right upper quadrant abdominal pain with minimal or no radiation to the back nnow for 2 days. CAT scan with contrast and abdominal sonogram were done from the emergency room and no specific diagnosis was made. GI physician note appreciated. Laboratory initially showed a white count of 19,000 and it is 12, 300 this morning. patient's entire blood profile is otherwise normal including liver enzymes and pancreas enzymes. He does have the past history of COPD ASHD with 6 stents, hypertension, hyperlipidemia, diabetes mellitus, GERD, eosinophilic gastritis and hepatitis. he does have 7 RBCs in his urine but no white cells. He was given a laxative yesterday but only water came out and no stool. Vital Signs Period Temp Pulse Resp BP Sys/Childers Pulse Ox Last 24 Hr 97.8 F-98.7 F 71-81 20-20 92-129/55-78 98 Pain is slightly better today No actual BM in spite of laxative No chest pain No shortness of breath No cough No dysuria or obvious hematuria On exam: Alert Chest decreased breath sounds but clear Heart regular Right upper quadrant tenderness Slight increased bowel sounds No CVA punch tenderness noted Abnormal Lab Results 11/11/16 11/11/16 06:00 06:00 WBC 12.3 H C-Reactive Protein 0.9 H Impression: Right upper quadrant abdominal pain of unknown cause No herpetic rash noted right upper quadrant Mild hematuria COPD ASHD with a history of 6 stents Hypertension on medication Hyperlipidemia run medication History of diabetes mellitus GERD by history History of hepatitis Plan: followup lab Repeat urinalysis Urology M.D. Followup GI MD evaluation
--- NOTE | 2016-11-11 17:59 | PN ---
GI Progress Note Subjective: Right sided abdominal pain improved Loose BM's on full liquids and after receiving IV Abx - Objective Vital Signs: Vital Signs Temperature 97.5 F L 11/11/16 14:32 Pulse Rate 82 11/11/16 14:32 Respiratory Rate 20 11/11/16 14:32 Blood Pressure 117/63 11/11/16 14:32 O2 Sat by Pulse Oximetry (%) 95 11/11/16 08:00 Constitutional: Calm Eyes: No: Sclera Icterus Cardiovascular: Yes: Regular Rate and Rhythm Respiratory: Yes: CTA Bilaterally Gastrointestinal Inspection: No: Distention ...Auscultate: Yes: Normoactive Bowel Sounds ...Palpate: Yes: Tenderness (improved right sided abdominal tenderness). No: Guarding, Tenderness, Rebound Edema: No Neurological: Yes: Alert, Oriented Labs: CBC, BMP 11/11/16 06:00 11/11/16 06:00 INR, PTT INR 1.12 (0.82-1.09) 11/09/16 19:25 Laboratory Tests 11/11/16 06:00 C-Reactive Protein 0.9 H Problem List - Problems (1) Abdominal pain Assessment/Plan: Treating for possible mild diverticulitis Advancing diet AM labs If tolerating PO and WBC improved, consider changing to PO Abx / D/C home with f /u in office 2 weeks Code(s): R10.9 - UNSPECIFIED ABDOMINAL PAIN Qualifiers: Abdominal location: unspecified location Qualified Code(s): R10.9 - Unspecified abdominal pain
--- NOTE | 2016-11-11 18:26 | CON.GU ---
Consult - History of Present Illness History of Present Illness: 56 yo male admitted with right sided abdominal pain likely secondary to diverticulitis. CT showed no evidence of pathology. Noted to have microhematuria, urine culture neg. Denies any dysuria. No prior history. 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 Cardio/Vascular: Yes: CAD, HTN, Hyperlipdemia Pulmonary: Yes: COPD Musculoskeletal: Yes: Chronic low back pain (/ spinal stenosis) Endocrine: Yes: Other (glucose intolerance) - Past Surgical History Past Surgical History: Yes: Laminectomy (Lumbar), Tonsillectomy - Alcohol/Substance Use Hx Alcohol Use: No - Smoking History Smoking history: Never smoked Have you smoked in the past 12 months: No Aproximately how many cigarettes per day: 2 If you are a former smoker, when did you quit?: 2007 - Social History Usual Living Arrangement: With Spouse ADL: Independent 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, 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 History of Recent Travel: No Home Medications - Allergies Allergies/Adverse Reactions: Allergies Allergy/AdvReac Type Severity Reaction Status Date / Time No Known Drug Allergies Allergy Verified 11/09/16 18:46 - Home Medications Home Medications: Ambulatory Orders Metoprolol Succinate [Toprol XL -] 25 mg PO DAILY #0 tab.sr.24h 10/31/11 Montelukast Na [Singulair -] 10 mg PO DAILY #0 tablet 10/31/11 Alprazolam [Xanax] 0.25 mg PO PRN PRN 04/05/14 Ramipril 2.5 mg PO DAILY 04/05/14 Rosuvastatin [Crestor -] 10 mg PO DAILY 05/11/16 Aspirin [Baby Aspirin] 81 mg PO Q2D 09/06/16 Carisoprodol [Soma] 350 mg PO PRN PRN 09/06/16 Cholecalciferol (Vitamin D3) [Vitamin D -] 400 unit PO DAILY 09/06/16 Diltiazem HCl [Cartia Xt] 120 mg PO DAILY 09/06/16 Niacin (Inositol Niacinate) [Niacin 500 mg Capsule] 500 mg PO DAILY 09/06/16 Prasugrel HCl [Effient] 5 mg PO DAILY #0 09/06/16 Pregabalin [Lyrica -] 200 mg PO ASDIR 09/06/16 Pregabalin [Lyrica] 100 mg PO AM 09/06/16 Salmeterol/Fluticasone [Advair 100Mcg/50Mcg -] 1 inh IH DAILY 09/06/16 Tiotropium [place] [Spiriva] 1 inh PO BID 09/06/16 Family Disease History - Family Disease History Family Disease History: CA: Father (Alive: renal cancer, colon polyps), Mother ( Alive: uterine cancer), Other: Brother (1 brother: healthy), Son (1 son: healthy ) Other Family History: No family history of colorectal cancer Physical Exam- Vital Signs: Vital Signs Temperature 97.5 F L 11/11/16 14:32 Pulse Rate 82 11/11/16 14:32 Respiratory Rate 20 11/11/16 14:32 Blood Pressure 117/63 11/11/16 14:32 O2 Sat by Pulse Oximetry (%) 95 11/11/16 08:00 Labs: CBC, BMP 11/11/16 06:00 11/11/16 06:00 Imaging - Results Cat Scan: Report Reviewed Problem List - Problems (1) Microhematuria Assessment/Plan: no pathology at this time. would recommend outpt f/u in a few weeks to repeat UA, if persistant microheme then will need cystoscopy Code(s): R31.29 - OTHER MICROSCOPIC HEMATURIA
[2016-11-11] MEDS: ROSUVASTATIN CA 10 MG TABLET (FP) PO SCH (23:12)
[2016-11-11] MEDS: MONTELUKAST NA 10 MG TABLET PO SCH (23:13)
[2016-11-12] MEDS: METRONIDAZOLE 500 MG PREMIXED 100 ML IVPB SCH ×3 (02:16→17:33)
[2016-11-12] MEDS: PREGABALIN 50 MG CAPSULE PO SCH ×2 (08:07→21:59)
[2016-11-12 08:20] LABS: BASOPHIL 0.5 % (0-2.0); EOSINOPHIL 2.5 % (0-4.5); MCH 27.8 pg (25.7-33.7); MCHC 33.7 g/dl (32.0-35.9); MEAN CELL VOLUME 82.6 fl (80-96); MEAN PLT VOLUME 7.4 fl (7.5-11.1); NEUTROPHILS 78.7 % (42.8-82.8); PLATELET COUNT 228 K/MM3 (134-434); RDW 14.3 % (11.9-15.9)
[2016-11-12 08:35] LABS: CALCIUM 8.6 mg/dL (8.5-10.1); COCKROFT - GAULT 143.63; CREATININE 0.7 mg/dL (0.7-1.3)
[2016-11-12] MEDS ORDERED: PT OWN MED DRAWER 7, Y5N ONE ×2 (09:04→21:07)
[2016-11-12] MEDS: ASPIRIN 81 MG CHEWABLE TABLETS PO SCH (09:07)
[2016-11-12] MEDS: FLUTICASONE/SALMETEROL 100 MCG/50 MCG DISKUS IH SCH (09:07)
[2016-11-12] MEDS: RAMIPRIL 2.5 MG CAPSULE (FP) PO SCH (09:07)
[2016-11-12] MEDS: PRASUGREL HCL 5 MG TAB PO SCH (09:08)
[2016-11-12] MEDS: PANTOPRAZOLE 40 MG TABLET (FP) PO SCH (09:10)
[2016-11-12] MEDS: LEVOFLOXACIN 500 MG IVPB 100 ML IVPB SCH (09:10)
[2016-11-12] MEDS: ACLIDINIUM BROMIDE 400 MCG/INH AERO.POWD IH SCH ×2 (09:11→22:01)
[2016-11-12] MEDS: METOPROLOL SUCCINATE 25 MG TAB.SR.24H (FP) PO SCH (09:11)
[2016-11-12] MEDS: CHOLECALCIFEROL (VITAMIN D3) 400 UNIT TABLET (FP) PO SCH (09:12)
[2016-11-12 12:24] LABS: URINE APPEARANCE CLEAR; URINE BILIRUBIN NEGATIVE (NEGATIVE); URINE BLOOD NEGATIVE (NEGATIVE); URINE COLOR LTYELLOW; URINE GLUCOSE (UA) NEGATIVE (NEGATIVE); URINE KETONE NEGATIVE (NEGATIVE); URINE NITRITE NEGATIVE (NEGATIVE); URINE PROTEIN NEGATIVE (NEGATIVE); URINE UROBILINOGEN NEGATIVE E.U./dl (0.2-1.0)
[2016-11-12 12:32] LABS: URINE LEUK ESTERASE TRACE (NEGATIVE)
[2016-11-12 12:34] LABS: URINE MUCUS RARE; URINE RBC 2 /hpf (0-3); URINE WBC <1 /hpf (3-5)
--- NOTE | 2016-11-12 13:56 | PN ---
Progress Note, Physician Chief Complaint: less abdominal pain today. History of Present Illness: Patient admitted with severe RUQ abdominal pain and WBC of 19,000. No definitive diagnosis could be made after CAT scans even with contrast and Abdominal sonogram. Patient's WBC and clinical picture is improving on current Rx.. He has just started on high fiber diet. ?? Diverticulitis. note reviewed and repeat urinalysis only shows 2 RBC's. - Current Medication List Current Medications: Active Medications Aclidinium [place] (Tudorza -) 1 puff IH BID [facility] Last Admin: 11/12/16 09:11 Dose: 1 puff Alprazolam (Xanax -) 0.25 mg PO Q8H PRN PRN Reason: ANXIETY Aspirin (Asa -) 81 mg PO Q2D@1000 [facility] Last Admin: 11/12/16 09:07 Dose: 81 mg Cholecalciferol (Vitamin D3 -) 400 unit PO DAILY [facility] Last Admin: 11/12/16 09:12 Dose: 400 unit Diltiazem HCl (Cardizem Cd -) 120 mg PO DAILY [facility] Last Admin: 11/12/16 09:08 Dose: 120 mg Levofloxacin (Levaquin 500 Mg Premixed Ivpb -) 100 mls @ 100 mls/hr IVPB DAILY [facility] Last Admin: 11/12/16 09:10 Dose: 100 mls/hr Metronidazole (Flagyl 500mg Premixed Ivpb -) 100 mls @ 100 mls/hr IVPB Q8H-IV [facility] Last Admin: 11/12/16 09:10 Dose: 100 mls/hr Metoprolol Succinate (Toprol Xl -) 25 mg PO DAILY [facility] Last Admin: 11/12/16 09:11 Dose: 25 mg Montelukast Sodium (Singulair -) 10 mg PO HS [facility] Last Admin: 11/11/16 23:13 Dose: 10 mg Non-Formulary Medication (Niacin (Inositol Niacinate) [Niacin 500 Mg Capsule]) 500 mg PO DAILY [facility] Pantoprazole Sodium (Protonix -) 40 mg PO DAILY [facility] Last Admin: 11/12/16 09:10 Dose: 40 mg Prasugrel (Effient -) 5 mg PO DAILY [facility] Last Admin: 11/12/16 09:08 Dose: 5 mg Pregabalin (Lyrica -) 100 mg PO AM [facility] Last Admin: 11/12/16 08:07 Dose: 100 mg Pregabalin (Lyrica -) 200 mg PO HS [facility] Last Admin: 11/11/16 23:12 Dose: 200 mg Ramipril (Altace -) 2.5 mg PO DAILY [facility] Last Admin: 11/12/16 09:07 Dose: 2.5 mg Rosuvastatin [place] (Crestor -) 10 mg PO HS [facility] Last Admin: 11/11/16 23:12 Dose: 10 mg Fluticasone/Salmeterol (Advair 100mcg/50mcg -) 1 puff IH DAILY [facility] Last Admin: 11/12/16 09:07 Dose: 1 puff - Objective Vital Signs: Vital Signs Temperature 97.7 F 11/12/16 08:45 Pulse Rate 98 H 11/12/16 08:45 Respiratory Rate 20 11/12/16 08:45 Blood Pressure 125/83 11/12/16 08:45 O2 Sat by Pulse Oximetry (%) 98 11/12/16 00:00 Constitutional: Yes: Calm Eyes: Yes: Conjunctiva Clear Cardiovascular: Yes: Regular Rate and Rhythm Respiratory: Yes: Regular Gastrointestinal: Yes: Soft, Distention (slight RUQ tenderness), Hypoactive Bowel Sounds, Tenderness Edema: No Neurological: Yes: Alert, Oriented Labs: CBC, BMP 11/12/16 06:00 11/12/16 06:00 INR, PTT INR 1.12 (0.82-1.09) 11/09/16 19:25 Problem List - Problems (1) Abdominal pain Assessment/Plan: improved with lower WBC count on IV antibiotics ? Diverticulitis not noted on ER CAT scans Code(s): R10.9 - UNSPECIFIED ABDOMINAL PAIN Qualifiers: Abdominal location: unspecified location Qualified Code(s): R10.9 - Unspecified abdominal pain (2) Microhematuria Assessment/Plan: Seen by Urology MD Repeat urine clearer Code(s): R31.29 - OTHER MICROSCOPIC HEMATURIA (3) Coronary artery disease Assessment/Plan: Hx 6 stents; followed by Cardiology Code(s): I25.10 - ATHSCL HEART DISEASE OF [place] CORONARY ARTERY W/O ANG PCTRS (4) Peripheral neuropathic pain Assessment/Plan: On Rx. Code(s): G62.9 - POLYNEUROPATHY, UNSPECIFIED
--- NOTE | 2016-11-12 14:44 | PN ---
GI Progress Note Subjective: No acute events No abdominal pain - Objective Vital Signs: Vital Signs Temperature 97.7 F 11/12/16 08:45 Pulse Rate 98 H 11/12/16 08:45 Respiratory Rate 20 11/12/16 08:45 Blood Pressure 125/83 11/12/16 08:45 O2 Sat by Pulse Oximetry (%) 98 11/12/16 00:00 Constitutional: Calm Eyes: No: Sclera Icterus Cardiovascular: Yes: Regular Rate and Rhythm Respiratory: Yes: CTA Bilaterally Gastrointestinal Inspection: No: Distention ...Auscultate: Yes: Normoactive Bowel Sounds ...Palpate: No: Tenderness Edema: No Neurological: Yes: Alert, Oriented Labs: CBC, BMP 11/12/16 06:00 11/12/16 06:00 INR, PTT INR 1.12 (0.82-1.09) 11/09/16 19:25 Laboratory Tests 11/11/16 11/12/16 06:00 06:00 C-Reactive Protein 0.9 H 0.5 H D Problem List - Problems (1) Abdominal pain Assessment/Plan: Clinically improved, labs improved and tolerating PO Continuing current management. No GI objection to D/C home on PO Abx for total 10 days including days on IV Abx while admitted F/U in office in 2 weeks w/ Dr. Aleman Code(s): R10.9 - UNSPECIFIED ABDOMINAL PAIN Qualifiers: Abdominal location: unspecified location Qualified Code(s): R10.9 - Unspecified abdominal pain
[2016-11-12] MEDS: MONTELUKAST NA 10 MG TABLET PO SCH (21:59)
[2016-11-12] MEDS: ROSUVASTATIN CA 10 MG TABLET (FP) PO SCH (22:00)
[2016-11-13] MEDS: METRONIDAZOLE 500 MG PREMIXED 100 ML IVPB SCH (01:38)
[2016-11-13] MEDS: PREGABALIN 50 MG CAPSULE PO SCH ×2 (06:17→21:12)
[2016-11-13 07:29] LABS: BASOPHIL 0.4 % (0-2.0); EOSINOPHIL 2.4 % (0-4.5); MCH 28.2 pg (25.7-33.7); MCHC 34.4 g/dl (32.0-35.9); MEAN CELL VOLUME 82.1 fl (80-96); MEAN PLT VOLUME 7.5 fl (7.5-11.1); NEUTROPHILS 80.8 % (42.8-82.8); PLATELET COUNT 226 K/MM3 (134-434); RDW 14.5 % (11.9-15.9); WHITE BLOOD COUNT 12.1 K/mm3 (4.0-10.0)
[2016-11-13] MEDS ORDERED: POLYETHYLENE GLYCOL 3350 119 GM BTL PO ONE (08:12)
--- NOTE | 2016-11-13 08:47 | DS ---
Physical Examination Vital Signs: Vital Signs Temperature 98.5 F 11/13/16 06:00 Pulse Rate 60 11/13/16 06:00 Respiratory Rate 20 11/13/16 06:00 Blood Pressure 99/57 11/13/16 06:00 O2 Sat by Pulse Oximetry (%) 97 11/12/16 23:58 Constitutional: Yes: No Distress, Calm Cardiovascular: Yes: Regular Rate and Rhythm Respiratory: Yes: Regular Gastrointestinal: Yes: Soft, Hyperactive Bowel Sounds. No: Tenderness Edema: No Neurological: Yes: Alert, Oriented Labs: CBC, BMP 11/13/16 06:00 11/12/16 06:00 Discharge Summary Reason For Visit: ABDOMINAL PAIN Current Active Problems Abdominal pain (Acute) Back pain (Acute) Microhematuria (Acute) ASHD on Rx Neuropathy on Rx Procedures: Principal: IV antibiotics and CAT scans of abdomen Other Procedures: Serial lab tests and GI and consultants Hospital Course: Slowly improved. Condition: Improved - Instructions Diet, Activity, Other Instructions: High fiber diet walk as much as possible. Revisist Dr. Ellis withi 2 weeks and make appt with Dr. Aleman / Marleny and Dr. August. Referrals: Shay August MD [Staff Physician] - Curtis Ellis MD [Primary Care Provider] - Arline Aleman MD [Staff Physician] - Disposition: HOME - Home Medications Comprehensive Discharge Medication List: Ambulatory Orders Metoprolol Succinate [Toprol XL -] 25 mg PO DAILY #0 tab.sr.24h 10/31/11 Montelukast Na [Singulair -] 10 mg PO DAILY #0 tablet 10/31/11 Alprazolam [Xanax] 0.25 mg PO PRN PRN 04/05/14 Ramipril 2.5 mg PO DAILY 04/05/14 Rosuvastatin [Crestor -] 10 mg PO DAILY 05/11/16 Aspirin [Baby Aspirin] 81 mg PO Q2D 09/06/16 Carisoprodol [Soma] 350 mg PO PRN PRN 09/06/16 Cholecalciferol (Vitamin D3) [Vitamin D -] 400 unit PO DAILY 09/06/16 Diltiazem HCl [Cartia Xt] 120 mg PO DAILY 09/06/16 Niacin (Inositol Niacinate) [Niacin 500 mg Capsule] 500 mg PO DAILY 09/06/16 Prasugrel HCl [Effient] 5 mg PO DAILY #0 09/06/16 Pregabalin [Lyrica -] 200 mg PO ASDIR 09/06/16 Pregabalin [Lyrica] 100 mg PO AM 09/06/16 Salmeterol/Fluticasone [Advair 100Mcg/50Mcg -] 1 inh IH DAILY 09/06/16 Tiotropium [place] [Spiriva] 1 inh PO BID 09/06/16 Clotrimazole/Betamet Diprop [Lotrisone -] 1 applic TP BID #60 tube 11/13/16 Levofloxacin [Levaquin -] 500 mg PO DAILY@0700 #7 tablet 11/13/16 Metronidazole [Flagyl -] 500 mg PO TID #21 tablet 11/13/16 Pantoprazole Sodium [Protonix -] 40 mg PO DAILY #30 cap 11/13/16
[2016-11-13] MEDS ORDERED: PT OWN MED DRAWER 7, Y5N ONE ×2 (09:11→21:09)
[2016-11-13] MEDS: PANTOPRAZOLE 40 MG TABLET (FP) PO SCH (09:14)
[2016-11-13] MEDS: RAMIPRIL 2.5 MG CAPSULE (FP) PO SCH (09:14)
[2016-11-13] MEDS: LEVOFLOXACIN 500 MG TABLET (FP) PO SCH (09:14)
[2016-11-13] MEDS: metroNIDAZOLE 250 MG TABLET PO SCH ×3 (09:14→21:12)
[2016-11-13] MEDS: METOPROLOL SUCCINATE 25 MG TAB.SR.24H (FP) PO SCH (09:14)
[2016-11-13] MEDS: PRASUGREL HCL 5 MG TAB PO SCH (09:15)
[2016-11-13] MEDS: CHOLECALCIFEROL (VITAMIN D3) 400 UNIT TABLET (FP) PO SCH (09:15)
[2016-11-13] MEDS: FLUTICASONE/SALMETEROL 100 MCG/50 MCG DISKUS IH SCH (09:18)
[2016-11-13] MEDS: ACLIDINIUM BROMIDE 400 MCG/INH AERO.POWD IH SCH ×2 (09:18→21:12)
[2016-11-13] MEDS: CLOTRIMAZOLE/BETAMET DIPROP 15 GM TUBE TP SCH ×2 (09:37→21:16)
--- NOTE | 2016-11-13 11:47 | PN ---
GI Progress Note Subjective: GI NOte: Pain resolved,. Having loose BMs with Miralax - Objective Vital Signs: Vital Signs Temperature 97.7 F 11/13/16 10:00 Pulse Rate 80 11/13/16 10:00 Respiratory Rate 20 11/13/16 10:00 Blood Pressure 127/72 11/13/16 10:00 O2 Sat by Pulse Oximetry (%) 97 11/13/16 08:00 Constitutional: Calm ...Auscultate: Yes: Normoactive Bowel Sounds ...Palpate: Yes: Soft, Other (nontender) Labs: CBC, BMP 11/13/16 06:00 11/12/16 06:00 INR, PTT INR 1.12 (0.82-1.09) 11/09/16 19:25 Laboratory Tests 11/12/16 11/13/16 06:00 06:00 WBC 12.1 H C-Reactive Protein 0.5 H D Assessment/Plan Resolving diverticulitis. Advised low residue diet and Miralax for 1 week then a resumption of high fiber diet. He will suspend zantac in favor of protonix until a followup visit on my office. No GI objections to discharge.
[2016-11-13 15:54] LABS: BASOPHIL 0.6 % (0-2.0); EOSINOPHIL 2.7 % (0-4.5); MCH 27.6 pg (25.7-33.7); MCHC 33.4 g/dl (32.0-35.9); MEAN CELL VOLUME 82.7 fl (80-96); MEAN PLT VOLUME 7.6 fl (7.5-11.1); NEUTROPHILS 80.4 % (42.8-82.8); PLATELET COUNT 254 K/MM3 (134-434); RDW 14.5 % (11.9-15.9); WHITE BLOOD COUNT 12.5 K/mm3 (4.0-10.0)
[2016-11-13] MEDS: MONTELUKAST NA 10 MG TABLET PO SCH (21:12)
[2016-11-13] MEDS: ROSUVASTATIN CA 10 MG TABLET (FP) PO SCH (21:13)
[2016-11-14] MEDS: metroNIDAZOLE 250 MG TABLET PO SCH (06:10)
[2016-11-14] MEDS: LEVOFLOXACIN 500 MG TABLET (FP) PO SCH (06:10)
[2016-11-14 07:01] LABS: MCH 27.8 pg (25.7-33.7); MCHC 33.8 g/dl (32.0-35.9); MEAN CELL VOLUME 82.3 fl (80-96); MEAN PLT VOLUME 7.3 fl (7.5-11.1); PLATELET COUNT 228 K/MM3 (134-434); RDW 14.5 % (11.9-15.9); WHITE BLOOD COUNT 12.4 K/mm3 (4.0-10.0)
--- NOTE | 2016-11-14 08:42 | PN ---
Progress Note (short form) - Note Progress Note: Discharge delayed yesterday due to a recuurrence of abdominal pain and rise in WBC especially as there is still a question of the exact cause of the primary issues. Today he feels better and has no abdominal pain. WBC noted and he is afebrile. Had better BM. On Exam: Vital Signs Period Temp Pulse Resp BP Sys/Childers Pulse Ox Last 24 Hr 97.7 F-98.9 F 73-84 18-20 101-127/52-72 98-99 Alert Chest Clear Cor: reg Abd: less distended and soft with no RUQ tenderness/ Abnormal Lab Results 11/13/16 11/14/16 15:35 06:00 WBC 12.5 H 12.4 H MPV 7.3 L IMP: Probable: Acute Diverticulitis ASHD with stents GERD DM Hematuria Hypertension Hyperlipidemia Will follow as outpt. after 7 more days of antibiotics Problem List - Problems (1) Abdominal pain Code(s): R10.9 - UNSPECIFIED ABDOMINAL PAIN Qualifiers: Abdominal location: unspecified location Qualified Code(s): R10.9 - Unspecified abdominal pain (2) Microhematuria Code(s): R31.29 - OTHER MICROSCOPIC HEMATURIA (3) Coronary artery disease Code(s): I25.10 - ATHSCL HEART DISEASE OF [place] CORONARY ARTERY W/O ANG PCTRS (4) Peripheral neuropathic pain Code(s): G62.9 - POLYNEUROPATHY, UNSPECIFIED
[2016-11-14] MEDS: PREGABALIN 50 MG CAPSULE PO SCH (10:17)
[2016-11-14] MEDS: PANTOPRAZOLE 40 MG TABLET (FP) PO SCH (10:17)
[2016-11-14] MEDS: RAMIPRIL 2.5 MG CAPSULE (FP) PO SCH (10:17)
[2016-11-14] MEDS: ASPIRIN 81 MG CHEWABLE TABLETS PO SCH (10:17)
[2016-11-14] MEDS: METOPROLOL SUCCINATE 25 MG TAB.SR.24H (FP) PO SCH (10:17)
[2016-11-14] MEDS: PRASUGREL HCL 5 MG TAB PO SCH (10:18)
[2016-11-14] MEDS: CHOLECALCIFEROL (VITAMIN D3) 400 UNIT TABLET (FP) PO SCH (10:18)
[2016-11-14] MEDS: CLOTRIMAZOLE/BETAMET DIPROP 15 GM TUBE TP SCH (10:18)
[2016-11-14] MEDS: ACLIDINIUM BROMIDE 400 MCG/INH AERO.POWD IH SCH ×2 (10:18→10:21)
[2016-11-14] MEDS: FLUTICASONE/SALMETEROL 100 MCG/50 MCG DISKUS IH SCH ×2 (10:18→10:22)
[2016-11-14 14:49] VITALS: BP 124/78; PULSE 104; TEMP 97.4
== END 2016-11-14 14:32 | disposition home or self-care (01) ==
LOC: JER 18:40 → JERBED 11-10 07:09 → UNDOADMOB 11-10 07:13 → JERBED 11-10 07:13 → J7W 11-10 10:15
PROVIDERS: ADMIT Specialist; ATTEND Specialist
PROC: 3E03329 Introduction of Other Anti-infective into Peripheral Vein, Percutaneous Approach (ICD-10-PCS; principal; 2016-11-10)
PROC: 3E033NZ Introduction of Analgesics, Hypnotics, Sedatives into Peripheral Vein, Percutaneous Approach (ICD-10-PCS; 2016-11-10)
PROC: 3E033GC Introduction of Other Therapeutic Substance into Peripheral Vein, Percutaneous Approach (ICD-10-PCS; 2016-11-10)
DX: R10.11 Right upper quadrant pain (principal); J44.9 Chronic obstructive pulmonary disease, unspecified; Z95.5 Presence of coronary angioplasty implant and graft; E11.9 Type 2 diabetes mellitus without complications; E78.5 Hyperlipidemia, unspecified; I10 Essential (primary) hypertension; I25.2 Old myocardial infarction; I25.10 Atherosclerotic heart disease of native coronary artery without angina pectoris; K21.9 Gastro-esophageal reflux disease without esophagitis; Z87.891 Personal history of nicotine dependence; M54.5 Low back pain; G89.29 Other chronic pain; G62.9 Polyneuropathy, unspecified
CPT/HCPCS: 36415; 74176; 74177-TC; 76705-TC; 80048; 80053; 81003; 81015; 82550; 83605; 83690; 84484; 85025; 85027; 85610; 85730; 86140; 87086; 93005; 93010; 99285-25; G0378

== ENCOUNTER 2018-06-04 09:10 | Emergency (ER) | payer BC ==
[2018-06-04 09:14] VITALS: BP 131/56; PULSE 70; TEMP 98.5; BMI 31.9
--- NOTE | 2018-06-04 10:22 | PDOC ---
History of Present Illness - General Chief Complaint: Injury Stated Complaint: INJURY Time Seen by Provider: 06/04/18 09:59 History Source: Patient Exam Limitations: No Limitations - History of Present Illness Initial Comments: 06/04/18 10:16 57 yr male with c/o fall yesterday slipped on wet floor landed on left shoulder. no LOC no head trauma no dizzyness. pt has pain and limited ROM to the left shoulder and clavicle. no rib pain no chest pain . Severity: reports: moderate Past History - Past Medical History Allergies/Adverse Reactions: Allergies Allergy/AdvReac Type Severity Reaction Status Date / Time No Known Drug Allergies Allergy Verified 06/04/18 09:14 Home Medications: Ambulatory Orders Metoprolol Succinate [Toprol XL -] 25 mg PO DAILY #0 tab.sr.24h 10/31/11 Montelukast Na [Singulair -] 10 mg PO DAILY #0 tablet 10/31/11 Alprazolam [Xanax] 0.25 mg PO PRN PRN 04/05/14 Ramipril 2.5 mg PO DAILY 04/05/14 Rosuvastatin [Crestor -] 10 mg PO DAILY 05/11/16 Aspirin [Baby Aspirin] 81 mg PO Q2D 09/06/16 Carisoprodol [Soma] 350 mg PO PRN PRN 09/06/16 Cholecalciferol (Vitamin D3) [Vitamin D -] 400 unit PO DAILY 09/06/16 Diltiazem HCl [Cartia Xt] 120 mg PO DAILY 09/06/16 Niacin (Inositol Niacinate) [Niacin 500 mg Capsule] 500 mg PO DAILY 09/06/16 Prasugrel HCl [Effient] 5 mg PO DAILY #0 09/06/16 Pregabalin [Lyrica -] 200 mg PO ASDIR 09/06/16 Pregabalin [Lyrica] 100 mg PO AM 09/06/16 Salmeterol/Fluticasone [Advair 100Mcg/50Mcg -] 1 inh IH DAILY 09/06/16 Tiotropium [place] [Spiriva] 1 inh PO BID 09/06/16 Clotrimazole/Betamet Diprop [Lotrisone -] 1 applic TP BID #60 tube 11/13/16 Pantoprazole Sodium [Protonix -] 40 mg PO DAILY #30 cap 11/13/16 levoFLOXacin [Levaquin -] 500 mg PO DAILY@0700 #7 tablet 11/13/16 metroNIDAZOLE [Flagyl -] 500 mg PO TID #21 tablet 11/13/16 Anemia: No Asthma: No Cancer: No Cardiac Disorders: Yes (ASHD.[place]-6 STENTS) CVA: No COPD: Yes CHF: No Dementia: No Diabetes: No GI Disorders: Yes (GERD,EOSINOPHILIC GASTRITIS) Disorders: No HTN: No Hypercholesterolemia: Yes Liver Disease: Yes (MILD HEPATITIS GRADE 2) Seizures: No Thyroid Disease: No - Surgical History Abdominal Surgery: No Appendectomy: No Cardiac Surgery: Yes (6 CARDIAC STENTS) Cholecystectomy: No Lung Surgery: No Neurologic Surgery: No Orthopedic Surgery: Yes (LAMINECTOMY) - Suicide/Smoking/Psychosocial Hx Smoking Status: No Smoking History: Former smoker Have you smoked in the past 12 months: No Number of Cigarettes Smoked Daily: 2 If you are a former smoker, when did you quit?: 2006 Information on smoking cessation initiated: No Hx Alcohol Use: No Drug/Substance Use Hx: No Substance Use Type: None Hx Substance Use Treatment: No *Physical Exam - Vital Signs Last Vital Signs Temp Pulse Resp BP Pulse Ox 98.5 F 70 19 131/56 L 97 06/04/18 09:12 06/04/18 09:12 06/04/18 09:12 06/04/18 09:12 06/04/18 09:12 - Physical Exam General Appearance: Yes: Nourished, Appropriately Dressed HEENT: positive: EOMI, JAVON, TMs Normal, Pharynx Normal Neck: positive: Supple. negative: Tender Respiratory/Chest: positive: Lungs Clear, Normal Breath Sounds. negative: Chest Tender Cardiovascular: positive: Regular Rhythm, Regular Rate Musculoskeletal: positive: Normal Inspection Extremity: positive: Normal Capillary Refill, Normal Inspection, Tender ( anterior shoulder, neg humeral tenderness, limited ROM due to pain ). negative : Swelling, Erythema, Inflammation Integumentary: positive: Normal Color, Dry, Warm Neurologic: positive: retirement officer II-XII NML intact, Fully Oriented, Alert, Normal Mood/ Affect, Normal Response, Motor Strength 5/5 Procedures - Splinting Sling: Yes ED Treatment Course - RADIOLOGY Radiology Studies Ordered: Category Date Time Status CLAVICLE-LEFT SIDE [RAD] Stat Radiology 06/04/18 10:01 Ordered SHOULDER-LEFT [RAD] Stat Radiology 06/04/18 10:01 Ordered Medical Decision Making - Medical Decision Making 06/04/18 10:24 cc: slip and fall c/o pain to left shoulder and clavicle xray tylenol now 06/04/18 10:42 06/04/18 10:52 sling placed to left shoulder xray negative for fracture dc inst given to patient verbally discussed all questions asked and answered *DC/Admit/Observation/Transfer Diagnosis at time of Disposition: Contusion, shoulder or upper arm - Discharge Dispostion Disposition: HOME Condition at time of disposition: Good - Referrals Referrals: Curtis Ellis MD [Primary Care Provider] - Joey Lombardo MD [Staff Physician] - - Patient Instructions Additional Instructions: tylenol extra strength every 6hrs for pain ice every 2hrs for 15 minutes sling while awake remove to sleep and bathe follow with the orthopedist next week for follow up if symptoms worsen or persist - Post Discharge Activity Forms/Work/School Notes: Back to Work
[2018-06-04] MEDS ORDERED: ACETAMINOPHEN 500 MG TABLET (FP) PO ONE (10:40)
[2018-06-04] MEDS ORDERED: ACETAMINOPHEN 500 MG TABLET (FP) ONE (10:44)
== END 2018-06-04 10:53 | disposition home or self-care (01) ==
LOC: JERFT 09:10
DX: S40.012A Contusion of left shoulder, initial encounter (principal); W01.0XXA Fall on same level from slipping, tripping and stumbling without subsequent striking against object, initial encounter; Y93.89 Activity, other specified; Y92.89 Other specified places as the place of occurrence of the external cause; Y99.8 Other external cause status; I25.10 Atherosclerotic heart disease of native coronary artery without angina pectoris; I25.2 Old myocardial infarction; Z95.5 Presence of coronary angioplasty implant and graft; J44.9 Chronic obstructive pulmonary disease, unspecified; E78.00 Pure hypercholesterolemia, unspecified; Z87.19 Personal history of other diseases of the digestive system
CPT/HCPCS: 73000-TC-LT-FY; 73030-TC-LT-FY; 99281-25

== ENCOUNTER 2019-01-10 17:20 | Emergency (ER) | payer BC | END 2019-01-10 18:42 | disposition home or self-care (01) | LOC: JER 17:20 ==

== ENCOUNTER 2019-04-05 14:47 | Observation (INO) | payer BC, OTHER ==
--- NOTE | 2019-04-05 14:58 | PDOC ---
Rapid Medical Evaluation Medical Evaluation: Allergies Allergy/AdvReac Type Severity Reaction Status Date / Time No Known Drug Allergies Allergy Verified 01/10/19 17:28 I have performed a brief in-person evaluation of this patient. The patient presents with a chief complaint of: Hx of HLD, HTN, CAD (w/ 6 stents ) takes effient, also on aspirin every other day, COPD, chronic back pain/ spinal stenosis, LE neuropathy on lyrica presents with substernal CP this AM around 11 AM; went to get up to use restroom when sxs started; associated with sob Pertinent physical exam findings: In NAD, lungs clear, no pedal edema, no calf tenderness I have ordered the following: labs, ekg, cxr The patient will proceed to the ED for further evaluation. 04/05/19 14:55
[2019-04-05 15:26] LABS: BASO % 0.6 % (0-2.0); EOS % 2.6 % (0-4.5); HEMATOCRIT 39.6 % (35.4-49); HEMOGLOBIN 13.1 GM/dL (11.7-16.9); LYMPH % 15.2 % (8-40); MCHC 33.1 g/dl (32.0-35.9); MEAN CELL VOLUME 81.7 fl (80-96); MEAN PLT VOLUME 7.5 fl (7.5-11.1); MONO % 6.8 % (3.8-10.2); NEUT % 74.8 % (42.8-82.8); PLATELET COUNT 302 K/MM3 (134-434); RBC 4.85 M/mm3 (4.00-5.60); WHITE BLOOD COUNT 10.9 K/mm3 (4.0-10.0)
--- NOTE | 2019-04-05 15:29 | PDOC ---
Documentation entered by Lizeth Leigh SCRIBE, acting as scribe for Baldemar Warner MD. Baldemar Warner MD: This documentation has been prepared by the Reese sanabria Xhesika, SCRIBE, under my direction and personally reviewed by me in its entirety. I confirm that the documentation accurately reflects all work, treatment, procedures, and medical decision making performed by me. History of Present Illness - General Chief Complaint: Chest Pain Stated Complaint: CHEST PAIN Time Seen by Provider: 04/05/19 15:04 History Source: Patient Exam Limitations: No Limitations - History of Present Illness Initial Comments: 04/05/19 15:20 The patient is a 58 year old male with a PMH of HLD, HTN, CAD ( at age 47 w/ 6 stents) takes effient (antiplatelet), also on aspirin every other day, COPD, chronic back pain, spinal stenosis, and LE neuropathy (on lyrica) who presents to the ED with substernal chest pain since 11AM. Patient states he was sleeping , woke up with sharp chest pain and fell to the floor due to the pain. The patient states the chest pain feels like someone is sitting on his chest, is associated with SOB and worsened with deep breathing. Patient denies LOC or hitting his head. Patient denies leg or arm swelling/ numbness/ weakness. Patient denies recent travel or long car rides. The patient denies headache and dizziness. Denies fever, chills, cough, nausea, vomiting, diarrhea and constipation. Denies dysuria, frequency, urgency and hematuria. Allergies:, NKDA Social Hx: Denies current smoking, drinking, or other substance usage. Past History - Past Medical History Allergies/Adverse Reactions: Allergies Allergy/AdvReac Type Severity Reaction Status Date / Time No Known Drug Allergies Allergy Verified 04/05/19 14:58 Home Medications: Ambulatory Orders Metoprolol Succinate [Toprol XL -] 25 mg PO DAILY #0 tab.sr.24h 10/31/11 Montelukast Na [Singulair -] 10 mg PO DAILY #0 tablet 10/31/11 Alprazolam [Xanax] 0.25 mg PO PRN PRN 04/05/14 Ramipril 2.5 mg PO DAILY 04/05/14 Rosuvastatin [Crestor -] 10 mg PO DAILY 05/11/16 Aspirin [Baby Aspirin] 81 mg PO Q2D 09/06/16 Cholecalciferol (Vitamin D3) [Vitamin D -] 400 unit PO DAILY 09/06/16 Diltiazem HCl [Cartia Xt] 120 mg PO DAILY 09/06/16 Niacin (Inositol Niacinate) [Niacin 500 mg Capsule] 500 mg PO DAILY 09/06/16 Prasugrel HCl [Effient] 5 mg PO DAILY #0 09/06/16 Pregabalin [Lyrica -] 200 mg PO ASDIR 09/06/16 Pregabalin [Lyrica] 100 mg PO AM 09/06/16 Salmeterol/Fluticasone [Advair 100Mcg/50Mcg -] 1 inh IH DAILY 09/06/16 Tiotropium [place] [Spiriva] 1 inh PO BID 09/06/16 Clotrimazole/Betamet Diprop [Lotrisone -] 1 applic TP BID #60 tube 11/13/16 Pantoprazole Sodium [Protonix -] 40 mg PO DAILY #30 cap 11/13/16 Prasugrel Hydrochloride [Effient -] 5 mg PO DAILY tab 04/06/19 Anemia: No Asthma: No Cancer: No Cardiac Disorders: Yes (ASHD.[place]-6 STENTS) CVA: No COPD: Yes CHF: No Dementia: No Diabetes: No GI Disorders: Yes (GERD,EOSINOPHILIC GASTRITIS) Disorders: No HTN: No Hypercholesterolemia: Yes Liver Disease: Yes (MILD HEPATITIS GRADE 2) Seizures: No Thyroid Disease: No - Surgical History Abdominal Surgery: No Appendectomy: No Cardiac Surgery: Yes (6 CARDIAC STENTS) Cholecystectomy: No Lung Surgery: No Neurologic Surgery: No Orthopedic Surgery: Yes (LAMINECTOMY) - Suicide/Smoking/Psychosocial Hx Smoking Status: No Smoking History: Former smoker Have you smoked in the past 12 months: No Number of Cigarettes Smoked Daily: 2 If you are a former smoker, when did you quit?: 2 YEARS AGO Information on smoking cessation initiated: No Hx Alcohol Use: Yes Drug/Substance Use Hx: No Substance Use Type: None Hx Substance Use Treatment: No Review of Systems - Review of Systems Able to Perform ROS?: Yes Comments:: 04/05/19 15:23 A complete review of 10 out of 10 review of systems is taken and is negative apart from what is previously mentioned below and in the HPI. *Physical Exam - Vital Signs Last Vital Signs Temp Pulse Resp BP Pulse Ox 97.5 F L 60 18 103/52 L 97 04/05/19 14:50 04/05/19 14:50 04/05/19 14:50 04/05/19 14:50 04/05/19 14:50 - Physical Exam Comments: 04/05/19 15:24 Vitals: Triage Vital signs reviewed General Appearance: no acute distress, well nourished well developed, Neck: Supple;No Nuchal rigidity Chest Wall: Nontender Cardiac: Regular rate and rhythm, no murmurs, no rubs, no gallops, Lungs: Clear to auscultation bilateral, good air movement bilaterally, Abdomen: Soft, nondistended, normal bowel sounds, nontender to palpation Extremities: Full range of motion to all extremities, no cyanosis, clubbing, or edema Skin: Warm and dry, no rashes or lesions, no petechiae Neuro: AOX3; Cranial Nerves 2-12 grossly c intact, Strength intact to all extremities, Sensation intact to all extremities, gait normal Psych: normal mood, normal affect Heart Score/ECG Review - History History: Moderately suspicious - Electrocardiogram EKG: Non specific repolarization disturbance - Age Age: 45-65 - Risk Factors Risk Factors Heart Score: Yes Hx Hypercholesterolemia, Yes Hx Hypertension, Yes Positive family hx of cardiac disease Based on the list above the patient has:: >/=3 risk factors or Hx atherosclerotic disease - Troponin Troponin: </= normal limit - Score Heart Score - Total: 5 - ECG Impressions Comment:: 04/05/19 16:19 EKG performed at 1452 demonstrates normal sinus rhythm [address] elevations no T-wave inversions right bundle-branch block Interpreted by me. ED Treatment Course - LABORATORY CBC & Chemistry Diagram: 04/06/19 05:40 04/06/19 05:40 Medical Decision Making - Medical Decision Making 04/06/19 16:54 Patient with previous [place] high risk chest pain patient with sudden onset chest pain and collapse no syncope troponin negative EKG with no ST elevations D-dimer ordered Dr. Acevedo to follow-up d-dimer if positive we'll obtain CTA prior to admission for ACS workup. *DC/Admit/Observation/Transfer Diagnosis at time of Disposition: Chest pain Qualifiers: Chest pain type: unspecified Qualified Code(s): R07.9 - Chest pain, unspecified - Discharge Dispostion Condition at time of disposition: Improved Decision to Admit order: Yes - Referrals - Patient Instructions - Post Discharge Activity
[2019-04-05 15:38] LABS: INR 1.03 (0.83-1.09); PROTHROMBIN TIME (PATIENT) 12.2 SEC (9.7-13.0)
[2019-04-05 15:41] LABS: ACTIVATED PTT 37.2 SECONDS (25.2-36.5)
[2019-04-05 15:56] LABS: ALBUMIN 3.8 g/dl (3.4-5.0); ALK PHOS 96 U/L (45-117); ANION GAP 10 MMOL/L (8-16); BILIRUBIN,TOTAL 0.6 mg/dL (0.2-1); BLOOD UREA NITROGEN 11.6 mg/dL (7-18); CALCIUM 8.5 mg/dL (8.5-10.1); CHLORIDE 104 mmol/L (98-107); CO2 27 mmol/L (21-32); CREATININE 0.8 mg/dL (0.55-1.3); GLUCOSE,RANDOM 98 mg/dL (74-106); POTASSIUM 4.4 mmol/L (3.5-5.1); SGOT/AST 23 U/L (15-37); SGPT/ALT 32 U/L (13-61); SODIUM 141 mmol/L (136-145); TOT PROT 6.6 g/dl (6.4-8.2)
[2019-04-05] MEDS ORDERED: ASPIRIN 325 MG TABLET PO ONE (16:16)
[2019-04-05] MEDS ORDERED: ACETAMINOPHEN 1000 MG/100 ML VIAL (NON FORMULARY) IVPB ONE (16:20)
[2019-04-05] MEDS ORDERED: SODIUM CHLORIDE 0.9% 1000 ML INFUS.BAG IV ONE (16:20)
[2019-04-05] MEDS ORDERED: ASPIRIN 325 MG TABLET ONE (16:37)
[2019-04-05] MEDS ORDERED: ACETAMINOPHEN INJECTION 100 ML IVPB ONE (16:37)
[2019-04-05] MEDS ORDERED: ALPRAZolam 0.25 MG TABLET PO PRN ×2 (18:26→19:31)
--- NOTE | 2019-04-05 18:30 | HP ---
CHIEF COMPLAINT: chest pain PCP: Dr. Ellis HISTORY OF PRESENT ILLNESS: Patient is a 58 year old male with a significant past medical history of hypertension, hyperlipidemia, CAD (7 stents-on effient/antiplatlet and also on ASA every other day), COPD, chronic back pain, spinal stenosis, lower extremity neuropathy (on lyrical bid). Patient comes to the ED today for c/o of substernal chest pain since 11am today. He reports the chest pain is sharp and extensive, that he fell to the floor, but denies LOC. He feels pressure in his chest worse with inspiration. He denies any leg or arm swelling does not smoke and has not recently traveled. He reports compliance with his home medications. The patient denies headache and dizziness. Denies fever, chills, cough, nausea, vomiting, diarrhea and constipation. Denies dysuria, frequency, urgency and hematuria. (1) negative troponing (2) elevated d dimer, for a CTA (ordered) (3) ekg nsr, rbbb Recent Travel: denies PAST MEDICAL/SURGICAL HISTORY: hypertension, hyperlipidemia, CAD (7 stents-on effient/antiplatlet and also on ASA every other day), COPD, chronic back pain, spinal stenosis, lower extremity neuropathy (on lyrical bid) Social History: Smoking: denies Alcohol: social Drugs: denies Family History: Allergies No Known Drug Allergies Allergy (Verified 04/05/19 14:58) HOME MEDICATIONS: Home Medications Medication Instructions Recorded Metoprolol Succinate [Toprol XL -] 25 mg PO DAILY #0 tab.sr.24h 10/31/11 Montelukast Na [Singulair -] 10 mg PO DAILY #0 tablet 10/31/11 Alprazolam [Xanax] 0.25 mg PO PRN PRN 04/05/14 Ramipril 2.5 mg PO DAILY 04/05/14 Rosuvastatin [Crestor -] 10 mg PO DAILY 05/11/16 Aspirin [Baby Aspirin] 81 mg PO Q2D 09/06/16 Cholecalciferol (Vitamin D3) 400 unit PO DAILY 09/06/16 [Vitamin D -] Diltiazem HCl [Cartia Xt] 120 mg PO DAILY 09/06/16 Niacin (Inositol Niacinate) 500 mg PO DAILY 09/06/16 [Niacin 500 mg Capsule] Prasugrel HCl [Effient] 5 mg PO DAILY #0 09/06/16 Pregabalin [Lyrica -] 200 mg PO ASDIR 09/06/16 Pregabalin [Lyrica] 100 mg PO AM 09/06/16 Salmeterol/Fluticasone [Advair 1 inh IH DAILY 09/06/16 100Mcg/50Mcg -] Tiotropium [place] [Spiriva] 1 inh PO BID 09/06/16 Clotrimazole/Betamet Diprop 1 applic TP BID #60 tube 11/13/16 [Lotrisone -] Pantoprazole Sodium [Protonix -] 40 mg PO DAILY #30 cap 11/13/16 REVIEW OF SYSTEMS CONSTITUTIONAL: Absent: fever, chills, diaphoresis, generalized weakness, malaise, loss of appetite, weight change HEENT: Absent: rhinorrhea, nasal congestion, throat pain, throat swelling, difficulty swallowing, mouth swelling, ear pain, eye pain, visual changes CARDIOVASCULAR: present: chest pain RESPIRATORY: Absent: cough, shortness of breath, dyspnea with exertion, orthopnea, wheezing, stridor, hemoptysis GASTROINTESTINAL: Absent: abdominal pain, abdominal distension, nausea, vomiting, diarrhea, constipation, melena, hematochezia GENITOURINARY: Absent: dysuria, frequency, urgency, hesitancy, hematuria, flank pain, genital pain MUSCULOSKELETAL: Absent: myalgia, arthralgia, joint swelling, back pain, neck pain SKIN: Absent: rash, itching, pallor HEMATOLOGIC/IMMUNOLOGIC: Absent: easy bleeding, easy bruising, lymphadenopathy, frequent infections ENDOCRINE: Absent: unexplained weight gain, unexplained weight loss, heat intolerance, cold intolerance NEUROLOGIC: Absent: headache, focal weakness or paresthesias, dizziness, unsteady gait, seizure, mental status changes, bladder or bowel incontinence PSYCHIATRIC: Absent: anxiety, depression, suicidal or homicidal ideation, hallucinations. PHYSICAL EXAMINATION Vital Signs - 24 hr 04/05/19 04/05/19 04/05/19 14:50 16:40 18:13 Temperature 97.5 F L 98.4 F Pulse Rate 60 Pulse Rate [ 61 Left Radial] Respiratory 18 18 Rate Blood Pressure 103/52 L Blood Pressure 117/58 L [Left Arm] O2 Sat by Pulse 97 97 95 Oximetry (%) GENERAL: Awake, alert, and fully oriented, in no acute distress. HEAD: Normal with no signs of trauma. EYES: Pupils equal, round and reactive to light, extraocular movements intact, sclera anicteric, conjunctiva clear. No lid lag. EARS, NOSE, THROAT: Ears normal, nares patent, oropharynx clear without exudates. Moist mucous membranes. NECK: Normal range of motion, supple without lymphadenopathy, JVD, or masses. LUNGS: Breath sounds equal, diminished bilaterally. HEART: Regular rate and rhythm ABDOMEN: obese abdomen MUSCULOSKELETAL: Normal range of motion at all joints. No bony deformities or tenderness. No CVA tenderness. UPPER EXTREMITIES: 2+ pulses, warm, well-perfused. No cyanosis. No clubbing. No peripheral edema. LOWER EXTREMITIES: 2+ pulses, warm, well-perfused. No calf tenderness. No peripheral edema. NEUROLOGICAL: Normal speech. PSYCHIATRIC: Cooperative. SKIN: Warm, dry, normal turgor, no rashes or lesions noted, normal capillary refill. Laboratory Results - last 24 hr 04/05/19 04/05/19 04/05/19 15:15 15:15 15:15 WBC 10.9 H RBC 4.85 Hgb 13.1 Hct 39.6 D MCV 81.7 MCH 27.0 MCHC 33.1 RDW 15.0 Plt Count 302 MPV 7.5 Absolute Neuts (auto) 8.2 H Neutrophils % 74.8 Lymphocytes % 15.2 D Monocytes % 6.8 Eosinophils % 2.6 Basophils % 0.6 Nucleated RBC % 0 PT with INR 12.20 INR 1.03 PTT (Actin FS) 37.2 H D-Dimer Sodium 141 Potassium 4.4 Chloride 104 Carbon Dioxide 27 Anion Gap 10 BUN 11.6 Creatinine 0.8 Est GFR (CKD-EPI)AfAm 114.13 Est GFR (CKD-EPI)NonAf 98.47 Random Glucose 98 Calcium 8.5 Total Bilirubin 0.6 AST 23 ALT 32 Alkaline Phosphatase 96 Creatine Kinase 200 Creatine Kinase Index 3.3 CK-MB (CK-2) 6.7 H Troponin I < 0.02 Total Protein 6.6 Albumin 3.8 04/05/19 04/05/19 15:15 15:20 WBC RBC Hgb Hct MCV MCH MCHC RDW Plt Count MPV Absolute Neuts (auto) Neutrophils % Lymphocytes % Monocytes % Eosinophils % Basophils % Nucleated RBC % PT with INR Cancelled INR Cancelled PTT (Actin FS) D-Dimer 1060 H Sodium Potassium Chloride Carbon Dioxide Anion Gap BUN Creatinine Est GFR (CKD-EPI)AfAm Est GFR (CKD-EPI)NonAf Random Glucose Calcium Total Bilirubin AST ALT Alkaline Phosphatase Creatine Kinase Creatine Kinase Index CK-MB (CK-2) Troponin I Total Protein Albumin ASSESSMENT/PLAN: Patient is a 58 year old male with a significant past medical history of hypertension, hyperlipidemia, CAD (7 stents-on effient/antiplatlet and also on ASA every other day), COPD, chronic back pain, spinal stenosis, lower extremity neuropathy (on lyrical bid). Patient comes to the ED today for c/o of substernal chest pain since 11am today. He reports the chest pain is sharp and extensive, that he fell to the floor, but denies LOC. He feels pressure in his chest worse with inspiration. He denies any leg or arm swelling does not smoke and has not recently traveled. He reports compliance with his home medications. The patient denies headache and dizziness. Denies fever, chills, cough, nausea, vomiting, diarrhea and constipation. Denies dysuria, frequency, urgency and hematuria. Problem List - Problem (1) Chest pain Assessment/Plan: Monitor on tele troponins negatve x 1, will trend 2 more for CTA to rule out PE as d dimer elevated EKG with rbbb and sinus bradycardia cardiology consulted by the ED Code(s): R07.9 - CHEST PAIN, UNSPECIFIED (2) COPD (chronic obstructive pulmonary disease) Assessment/Plan: on duonebs prn, start home bronchodilators. no wheezing on exam. Code(s): J44.9 - CHRONIC OBSTRUCTIVE PULMONARY DISEASE, UNSPECIFIED (3) Coronary artery disease Assessment/Plan: on effient and asa 81mg every other day. Code(s): I25.10 - ATHSCL HEART DISEASE OF [place] CORONARY ARTERY W/O ANG PCTRS (4) Hypertension Code(s): I10 - ESSENTIAL (PRIMARY) HYPERTENSION (5) Prophylactic measure Assessment/Plan: fen low salt/low choles diet monitor electrolytes Code(s): Z29.9 - ENCOUNTER FOR PROPHYLACTIC MEASURES, UNSPECIFIED (6) DVT prophylaxis Assessment/Plan: on effient Code(s): Z29.9 - ENCOUNTER FOR PROPHYLACTIC MEASURES, UNSPECIFIED Visit type - Emergency Visit Emergency Visit: Yes ED Registration Date: 04/05/19 Care time: The patient presented to the Emergency Department on the above date and was hospitalized for further evaluation of their emergent condition. - New Patient This patient is new to me today: Yes Date on this admission: 04/05/19 - Critical Care Critical Care patient: No
[2019-04-05 21:04] VITALS: BMI 27.8
[2019-04-05] MEDS ORDERED: PREGABALIN 100 MG CAPSULE PO SCH (22:00)
[2019-04-05] MEDS ORDERED: ROSUVASTATIN CA 10 MG TABLET (FP) PO SCH (22:00)
[2019-04-05] MEDS ORDERED: MONTELUKAST NA 10 MG TABLET PO SCH (22:00)
[2019-04-05] MEDS: FLUTICASONE/SALMETEROL 100 MCG/50 MCG DISKUS IH SCH (22:21)
[2019-04-05] MEDS: metoPROLOL SUCCINATE 25 MG TAB.SR.24H (FP) PO SCH (22:22)
[2019-04-05] MEDS ORDERED: ACETAMINOPHEN 325 MG TABLET (FP) PO PRN (23:53)
[2019-04-06 07:02] LABS: BASO % 0.5 % (0-2.0); EOS % 3.6 % (0-4.5); HEMATOCRIT 37.2 % (35.4-49); HEMOGLOBIN 12.6 GM/dL (11.7-16.9); LYMPH % 17.6 % (8-40); MCH 27.5 pg (25.7-33.7); MCHC 33.9 g/dl (32.0-35.9); MEAN CELL VOLUME 81.4 fl (80-96); MEAN PLT VOLUME 7.7 fl (7.5-11.1); MONO % 6.4 % (3.8-10.2); NEUT % 71.9 % (42.8-82.8); PLATELET COUNT 254 K/MM3 (134-434); RBC 4.57 M/mm3 (4.00-5.60); RDW 15.2 % (11.9-15.9)
[2019-04-06 07:28] LABS: ALBUMIN 3.4 g/dl (3.4-5.0); BILIRUBIN,TOTAL 0.4 mg/dL (0.2-1); CALCIUM 8.5 mg/dL (8.5-10.1); CREATININE 0.8 mg/dL (0.55-1.3); MAGNESIUM 2.4 mg/dL (1.8-2.4); POTASSIUM 3.9 mmol/L (3.5-5.1)
--- NOTE | 2019-04-06 07:51 | PN ---
Progress Note, Physician Chief Complaint: Chest pain History of Present Illness: Patient is a 58 year old male with a significant past medical history of hypertension, hyperlipidemia, CAD (7 stents-on effient/antiplatlet and also on ASA every other day), COPD, chronic back pain, spinal stenosis, lower extremity neuropathy (on lyrical bid). Patient comes to the ED today for c/o of substernal chest pain since 11am today. He reports the chest pain is sharp and extensive, that he fell to the floor, but denies LOC. He feels pressure in his chest worse with inspiration. He denies any leg or arm swelling does not smoke and has not recently traveled. He reports compliance with his home medications. The patient denies headache and dizziness. Denies fever, chills, cough, nausea, vomiting, diarrhea and constipation. Denies dysuria, frequency, urgency and hematuria. - Current Medication List Current Medications: Active Medications Acetaminophen (Tylenol -) 650 mg PO Q6H PRN PRN Reason: PAIN LEVEL 4 - 6 Alprazolam (Xanax -) 0.25 mg PO Q6H PRN PRN Reason: ANXIETY Aspirin (Asa -) 81 mg PO Q2D [facility] Cholecalciferol (Vitamin D3 -) 400 unit PO DAILY [facility] Diltiazem HCl (Cardizem Cd -) 120 mg PO DAILY [facility] Last Admin: 04/05/19 22:22 Dose: 120 mg Metoprolol Succinate (Toprol Xl -) 25 mg PO DAILY [facility] Last Admin: 04/05/19 22:22 Dose: 25 mg Montelukast Sodium (Singulair -) 10 mg PO [facility] Last Admin: 04/05/19 22:21 Dose: 10 mg Pantoprazole Sodium (Protonix -) 40 mg PO DAILY [facility] Prasugrel (Effient -) 5 mg PO DAILY [facility] Pregabalin (Lyrica -) 200 mg PO DAILY [facility] Pregabalin (Lyrica -) 400 mg PO [facility] Last Admin: 04/05/19 22:21 Dose: 400 mg Ramipril (Altace -) 2.5 mg PO DAILY [facility] Rosuvastatin Calcium (Crestor -) 10 mg PO HS [facility] Last Admin: 04/05/19 22:21 Dose: 10 mg Fluticasone/Salmeterol (Advair 100mcg/50mcg -) 1 puff IH BID [facility] Last Admin: 04/05/19 22:21 Dose: 1 puff Tiotropium [place] (Spiriva Respimat) 2 puff IH DAILY [facility] - Objective Vital Signs: Vital Signs Temperature 97.7 F 04/06/19 06:00 Pulse Rate 60 04/06/19 06:00 Respiratory Rate 20 04/06/19 06:00 Blood Pressure 105/63 04/06/19 06:00 O2 Sat by Pulse Oximetry (%) 100 04/05/19 20:45 Labs: CBC, BMP 04/06/19 05:40 INR, PTT INR 1.03 (0.83-1.09) 04/05/19 15:15
[2019-04-06] MEDS: FLUTICASONE/SALMETEROL 100 MCG/50 MCG DISKUS IH SCH (09:23)
[2019-04-06] MEDS: metoPROLOL SUCCINATE 25 MG TAB.SR.24H (FP) PO SCH (09:25)
[2019-04-06] MEDS ORDERED: PRASUGREL HCL 5 MG TAB PO SCH (10:00)
[2019-04-06] MEDS ORDERED: CHOLECALCIFEROL (VIT D3) 400 UNIT (10 MCG) TABLET PO SCH (10:00)
[2019-04-06] MEDS ORDERED: TIOTROPIUM BROMIDE 2.5 MCG (SPIRIVA) RESPIMAT INHALER IH SCH (10:00)
[2019-04-06] MEDS ORDERED: RAMIPRIL 2.5 MG CAPSULE (FP) PO SCH (10:00)
[2019-04-06] MEDS ORDERED: PREGABALIN 100 MG CAPSULE PO SCH (10:00)
[2019-04-06] MEDS ORDERED: PANTOPRAZOLE 40 MG TABLET (FP) PO SCH (10:00)
[2019-04-06] MEDS ORDERED: FLUTICASONE/SALMETEROL 100 MCG/50 MCG DISKUS IH SCH (10:00)
--- NOTE | 2019-04-06 10:45 | PN ---
Progress Note (short form) - Note Progress Note: Hospitalist to document today. CTA Chest: No PE; Troponin - X3. Tenderness noted on sternal palpation. Hx. recent falls and neuropathy on Lyrica high dose; may need Neurology evaluation.
--- NOTE | 2019-04-06 11:15 | EKG ---
Test Reason : Blood Pressure : / mmHG Vent. Rate : 052 BPM Atrial Rate : 052 BPM P-R Int : 128 ms QRS Dur : 120 ms QT Int : 492 ms P-R-T Axes : 046 057 038 degrees QTc Int : 457 ms SINUS BRADYCARDIA POSSIBLE LEFT ATRIAL ENLARGEMENT RIGHT BUNDLE BRANCH BLOCK ABNORMAL ECG Confirmed by Jaya Herrera MD ([id number]) on 04/06/2019 11:14:29 AM Referred By: Confirmed By:Jaya Herrera MD
--- NOTE | 2019-04-06 11:44 | CON.CARD ---
Consult Consult Specialty:: cardiology Referred by:: Medicine Reason for Consultation:: chest pain - History of Present Illness Chief Complaint: chest pain History of Present Illness: 58M h/o HTN, HLD, CAD (7 stents, on effient/ASA), COPD p/w substernal chest pain since 11 AM morning of admission. [place] sharp, nonradiating. Fell down, no dizziness or syncope. Chest pressure worse with inspiration. Sees Dr. Malik for cardio. Last saw him 02/2019, complained of pinpoint pain worse when taking breaths. Still has pain now, worse with palpation - just had echo and felt much worse with probe on chest and with deep breaths. Has been constant since yesterday but getting better. No dyspnea, palps, edema, dizziness. - Past Medical History RODEO RIDER: Yes: Peripheral Neuropathy Cardio/Vascular: Yes: CAD, HTN, Hyperlipdemia Pulmonary: Yes: COPD Musculoskeletal: Yes: Chronic low back pain (/ spinal stenosis) Endocrine: Yes: Other (glucose intolerance) - Past Surgical History Past Surgical History: Yes: Laminectomy (Lumbar), Tonsillectomy - Alcohol/Substance Use Hx Alcohol Use: Yes (Social) - Smoking History Smoking history: Former smoker Have you smoked in the past 12 months: No Aproximately how many cigarettes per day: 2 If you are a former smoker, when did you quit?: 2 YEARS AGO - Social History Usual Living Arrangement: With Spouse ADL: Independent 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, 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 History of Recent Travel: No Home Medications - Allergies Allergies/Adverse Reactions: Allergies Allergy/AdvReac Type Severity Reaction Status Date / Time No Known Drug Allergies Allergy Verified 04/05/19 14:58 - Home Medications Home Medications: Ambulatory Orders Metoprolol Succinate [Toprol XL -] 25 mg PO DAILY #0 tab.sr.24h 10/31/11 Montelukast Na [Singulair -] 10 mg PO DAILY #0 tablet 10/31/11 Alprazolam [Xanax] 0.25 mg PO PRN PRN 04/05/14 Ramipril 2.5 mg PO DAILY 04/05/14 Rosuvastatin [Crestor -] 10 mg PO DAILY 05/11/16 Aspirin [Baby Aspirin] 81 mg PO Q2D 09/06/16 Cholecalciferol (Vitamin D3) [Vitamin D -] 400 unit PO DAILY 09/06/16 Diltiazem HCl [Cartia Xt] 120 mg PO DAILY 09/06/16 Niacin (Inositol Niacinate) [Niacin 500 mg Capsule] 500 mg PO DAILY 09/06/16 Prasugrel HCl [Effient] 5 mg PO DAILY #0 09/06/16 Pregabalin [Lyrica -] 200 mg PO ASDIR 09/06/16 Pregabalin [Lyrica] 100 mg PO AM 09/06/16 Salmeterol/Fluticasone [Advair 100Mcg/50Mcg -] 1 inh IH DAILY 09/06/16 Tiotropium [place] [Spiriva] 1 inh PO BID 09/06/16 Clotrimazole/Betamet Diprop [Lotrisone -] 1 applic TP BID #60 tube 11/13/16 Pantoprazole Sodium [Protonix -] 40 mg PO DAILY #30 cap 11/13/16 Family Disease History - Family Disease History Family Disease History: CA: Father (Alive: renal cancer, colon polyps), Mother ( Alive: uterine cancer), Other: Brother (1 brother: healthy), Son (1 son: healthy ) Review of Systems - Review of Systems Constitutional: reports: No Symptoms Eyes: reports: No Symptoms HENT: reports: No Symptoms Neck: reports: No Symptoms Cardiovascular: reports: Chest Pain Respiratory: reports: No Symptoms Gastrointestinal: reports: No Symptoms Genitourinary: reports: No Symptoms Musculoskeletal: reports: No Symptoms Integumentary: reports: No Symptoms Neurological: reports: No Symptoms Endocrine: reports: No Symptoms Hematology/Lymphatic: reports: No Symptoms Psychiatric: reports: No Symptoms Vital Signs: Vital Signs Temperature 98 F 04/06/19 09:59 Pulse Rate 64 04/06/19 09:59 Respiratory Rate 20 04/06/19 09:59 Blood Pressure 107/65 04/06/19 09:59 O2 Sat by Pulse Oximetry (%) 100 04/05/19 20:45 Constitutional: Yes: Well Nourished, No Distress, Calm Eyes: Yes: Conjunctiva Clear, EOM Intact HENT: Yes: Atraumatic, Normocephalic Neck: Yes: Supple, Trachea Midline Respiratory: Yes: Regular, CTA Bilaterally Gastrointestinal: Yes: Normal Bowel Sounds Cardiovascular: Yes: Regular Rate and Rhythm, Other (chest tender to palpation over sternum) JVD: No Heart Sounds: Yes: S1, S2 Edema: No Peripheral Pulses WNL: Yes Integumentary: No: Jaundice Neurological: Yes: Alert, Oriented Psychiatric: No: Agitated - Other Data Labs, Other Data: CBC, BMP 04/06/19 05:40 04/06/19 05:40 INR, PTT INR 1.03 (0.83-1.09) 04/05/19 15:15 Troponin, BNP 04/05/19 04/05/19 04/06/19 15:15 21:30 04:00 Troponin I < 0.02 < 0.02 < 0.02 Troponin, BNP 04/05/19 04/05/19 04/06/19 15:15 21:30 04:00 Troponin I < 0.02 < 0.02 < 0.02 Assessment/Plan [facility] 06/07 60-70% mLAD ISR/FFR+ (PTCA only)all other stents patent (mild ISR RCA and D2)severe/diffuse small D1 dz, 30-50% prox and distal LAD mibi 07/2010 [facility] dobutamine no STs, sm, fixed anteroapical, nl EF stress echo 05/2017 5:26 min, 7 METS, no CP, no ischemia, peak TR gradient at least 65 mmHg echo 11/2017 nl LV function, LAP uncertain, nl RV, nl LA, nl valves, no RVSP, lg epicardial fat pad, ?small post pericardial effusion EKG: sinus, RBBB tele: sinus Chest pain - trop neg x 3, EKG no ischemic changes - unlikely ACS - monitoring on tele - no events - CTA chest - no PE - echo pending - tender to palpation and worse with deep breaths, less likely cardiac etiology. more consistent with costochondritis - if benign findings on echo, no further inpatient testing CAD - h/o NSTEMI DIEGO to LAD/D2 bifurc, staged RCA and OM 2007, ISR of LAD/D2 08/2009 s/p PTCA, atypical CP with cath 02/2010 with patent stents except small D1( diffuse/severe dz) UA 05/2011 while asleep with mLAD ISR (+FFR) and severe vasospasm s/p PTCA, CCB added - cont diltiazem - lifelong effient 5 mg daily for bifurcation stenting with QOD aspirin - continue - cont bb, statin, ACEI h/o pulm HTN, RBBB - new RBBB noted at 02/2019 f/u with Dr. Malik - h/o PASP 65 mmHg on prior stress echo, not on rest echo 2017 - repeat echo pending HTN - stable, cont home meds HLD - cont statin COPD - manage per primary
--- NOTE | 2019-04-06 12:34 | ECHO ---
Name: LUIS MATOS Exam:Adult Echocardiogram Study Date: 04/06/2019 11:35 AM Age: 58 yrs Reason For Study: Chest pain Height: 67 in Weight: 177 lb BSA: 1.9 m2 MMode/2D Measurements & Calculations IVSd: 0.74 cm Ao root diam: 2.7 cm LVIDd: 4.6 cm LA dimension: 4.2 cm LVIDs: 3.2 cm LVPWd: 1.0 cm EDV(Teich): 95.2 ml LVOT diam: 2.0 cm ESV(Teich): 41.2 ml LAV (MOD-bp): 54.5 ml Doppler Measurements & Calculations MV E max robert: 96.5 cm/sec Ao V2 max: 165.6 cm/sec MV A max robert: 59.7 cm/sec Ao max P.0 mmHg MV E/A: 1.6 MV dec time: 0.18 sec HATTIE(V,D): 2.5 cm2 LV V1 max P.2 mmHg TR max robert: 213.8 cm/sec LV V1 max: 133.9 cm/sec TR max P.3 mmHg PA V2 max: 112.7 cm/sec Med Peak E' Robert: 8.4 cm/sec PA max P.1 mmHg Med E/e': 11.5 Lat Peak E' Robert: 8.2 cm/sec Lat E/e': 11.8 Procedure A complete two-dimensional transthoracic echocardiogram was performed (2D, M-mode, Doppler and color flow Doppler). The patient was in normal sinus rhythm during the exam. Left Ventricle The left ventricular size, thickness and function are normal. Ejection Fraction = 70%. E/A reversal c onsistent with but not diagnostic of poor LV compliance. The left ventricular wall motion is normal. Right Ventricle The right ventricle is normal in size and function. Mitral Valve The mitral valve is normal in structure and function. There is trace mitral regurgitation. Tricuspid Valve The tricuspid valve is normal in structure and function. There is trace tricuspid regurgitation. Righ t ventricular systolic pressure is 23 mmhg. Assuming the RA pressure is 5 mmHg. Aortic Valve The aortic valve is normal in structure and function. Pulmonic Valve The pulmonic valve is normal in structure and function. Great Vessels The aortic root is normal size. Pericardium/Pleura There is no pericardial effusion. There is no pleural effusion. Interpretation Summary The left ventricular size, thickness and function are normal Ejection Fraction = 70%. There is trace mitral regurgitation. There is trace tricuspid regurgitation. Right ventricular systolic pressure is 23 mmhg. MD Jaya Herrera 04/06/2019 12:33 PM
[2019-04-06 15:00] VITALS: BP 137/49; PULSE 55; TEMP 98.2
--- NOTE | 2019-04-06 16:01 | DS ---
Physical Exam: SUBJECTIVE: Patient seen and examined OBJECTIVE: Patient is a 58 year old male with a significant past medical history of hypertension, hyperlipidemia, CAD (7 stents-on effient/antiplatlet and also on ASA every other day), COPD, chronic back pain, spinal stenosis, lower extremity neuropathy (on lyrical bid). Patient comes to the ED today for c/o of substernal chest pain since 11am today. He reports the chest pain is sharp and extensive, that he fell to the floor, but denies LOC. He feels pressure in his chest worse with inspiration. He denies any leg or arm swelling does not smoke and has not recently traveled. He reports compliance with his home medications. The patient denies headache and dizziness. Denies fever, chills, cough, nausea, vomiting, diarrhea and constipation. Denies dysuria, frequency, urgency and hematuria. Recent Travel: denies PAST MEDICAL/SURGICAL HISTORY: hypertension, hyperlipidemia, CAD (7 stents-on effient/antiplatlet and also on ASA every other day), COPD, chronic back pain, spinal stenosis, lower extremity neuropathy (on lyrical bid) Social History: Smoking: denies Alcohol: social Drugs: denies Family History: Allergies No Known Drug Allergies Allergy (Verified 04/05/19 14:58) HOME MEDICATIONS: Home Medications Medication Instructions Recorded Metoprolol Succinate [Toprol XL -] 25 mg PO DAILY #0 tab.sr.24h 10/31/11 Montelukast Na [Singulair -] 10 mg PO DAILY #0 tablet 10/31/11 Alprazolam [Xanax] 0.25 mg PO PRN PRN 04/05/14 Ramipril 2.5 mg PO DAILY 04/05/14 Rosuvastatin [Crestor -] 10 mg PO DAILY 05/11/16 Aspirin [Baby Aspirin] 81 mg PO Q2D 09/06/16 Cholecalciferol (Vitamin D3) 400 unit PO DAILY 09/06/16 [Vitamin D -] Diltiazem HCl [Cartia Xt] 120 mg PO DAILY 09/06/16 Niacin (Inositol Niacinate) 500 mg PO DAILY 09/06/16 [Niacin 500 mg Capsule] Prasugrel HCl [Effient] 5 mg PO DAILY #0 09/06/16 Pregabalin [Lyrica -] 200 mg PO ASDIR 09/06/16 Pregabalin [Lyrica] 100 mg PO AM 09/06/16 Salmeterol/Fluticasone [Advair 1 inh IH DAILY 09/06/16 100Mcg/50Mcg -] Tiotropium [place] [Spiriva] 1 inh PO BID 09/06/16 Clotrimazole/Betamet Diprop 1 applic TP BID #60 tube 11/13/16 [Lotrisone -] Pantoprazole Sodium [Protonix -] 40 mg PO DAILY #30 cap 11/13/16 PHYSICAL EXAMINATION Vital Signs - 24 hr 04/05/19 04/05/19 04/05/19 14:50 16:40 18:13 Temperature 97.5 F L 98.4 F Pulse Rate 60 Pulse Rate [ 61 Left Radial] Respiratory 18 18 Rate Blood Pressure 103/52 L Blood Pressure 117/58 L [Left Arm] O2 Sat by Pulse 97 97 95 Oximetry (%) GENERAL: Awake, alert, and fully oriented, in no acute distress. HEAD: Normal with no signs of trauma. EYES: Pupils equal, round and reactive to light, extraocular movements intact, sclera anicteric, conjunctiva clear. No lid lag. EARS, NOSE, THROAT: Ears normal, nares patent, oropharynx clear without exudates. Moist mucous membranes. NECK: Normal range of motion, supple without lymphadenopathy, JVD, or masses. LUNGS: Breath sounds equal, diminished bilaterally. HEART: Regular rate and rhythm ABDOMEN: obese abdomen MUSCULOSKELETAL: Normal range of motion at all joints. No bony deformities or tenderness. No CVA tenderness. UPPER EXTREMITIES: 2+ pulses, warm, well-perfused. No cyanosis. No clubbing. No peripheral edema. LOWER EXTREMITIES: 2+ pulses, warm, well-perfused. No calf tenderness. No peripheral edema. NEUROLOGICAL: Normal speech. PSYCHIATRIC: Cooperative. SKIN: Warm, dry, normal turgor, no rashes or lesions noted, normal capillary refill. Laboratory Results - last 24 hr 04/05/19 04/05/19 04/05/19 15:15 15:15 15:15 WBC 10.9 H RBC 4.85 Hgb 13.1 Hct 39.6 D MCV 81.7 MCH 27.0 MCHC 33.1 RDW 15.0 Plt Count 302 MPV 7.5 Absolute Neuts (auto) 8.2 H Neutrophils % 74.8 Lymphocytes % 15.2 D Monocytes % 6.8 Eosinophils % 2.6 Basophils % 0.6 Nucleated RBC % 0 PT with INR 12.20 INR 1.03 PTT (Actin FS) 37.2 H D-Dimer Sodium 141 Potassium 4.4 Chloride 104 Carbon Dioxide 27 Anion Gap 10 BUN 11.6 Creatinine 0.8 Est GFR (CKD-EPI)AfAm 114.13 Est GFR (CKD-EPI)NonAf 98.47 Random Glucose 98 Calcium 8.5 Total Bilirubin 0.6 AST 23 ALT 32 Alkaline Phosphatase 96 Creatine Kinase 200 Creatine Kinase Index 3.3 CK-MB (CK-2) 6.7 H Troponin I < 0.02 Total Protein 6.6 Albumin 3.8 04/05/19 04/05/19 15:15 15:20 WBC RBC Hgb Hct MCV MCH MCHC RDW Plt Count MPV Absolute Neuts (auto) Neutrophils % Lymphocytes % Monocytes % Eosinophils % Basophils % Nucleated RBC % PT with INR Cancelled INR Cancelled PTT (Actin FS) D-Dimer 1060 H Sodium Potassium Chloride Carbon Dioxide Anion Gap BUN Creatinine Est GFR (CKD-EPI)AfAm Est GFR (CKD-EPI)NonAf Random Glucose Calcium Total Bilirubin AST ALT Alkaline Phosphatase Creatine Kinase Creatine Kinase Index CK-MB (CK-2) Troponin I Total Protein Albumin Vital Signs Period Temp Pulse Resp BP Sys/Childers Pulse Ox Last 24 Hr 97.5 F-98.4 F 55-65 18-20 105-137/49-65 95-100 LABS Laboratory Results - last 24 hr 04/05/19 04/05/19 04/05/19 15:15 15:20 21:30 WBC RBC Hgb Hct MCV MCH MCHC RDW Plt Count MPV Absolute Neuts (auto) Neutrophils % Lymphocytes % Monocytes % Eosinophils % Basophils % Nucleated RBC % D-Dimer 1060 H Sodium 141 Potassium 4.4 Chloride 104 Carbon Dioxide 27 Anion Gap 10 BUN 11.6 Creatinine 0.8 Est GFR (CKD-EPI)AfAm 114.13 Est GFR (CKD-EPI)NonAf 98.47 Random Glucose 98 Hemoglobin A1c % Calcium 8.5 Magnesium Total Bilirubin 0.6 AST 23 ALT 32 Alkaline Phosphatase 96 Creatine Kinase 200 Creatine Kinase Index 3.3 CK-MB (CK-2) 6.7 H Troponin I < 0.02 < 0.02 Total Protein 6.6 Albumin 3.8 Triglycerides Cholesterol Total LDL Cholesterol HDL Cholesterol TSH 04/06/19 04/06/19 04/06/19 04:00 05:40 05:40 WBC 9.0 RBC 4.57 Hgb 12.6 Hct 37.2 MCV 81.4 MCH 27.5 MCHC 33.9 RDW 15.2 Plt Count 254 MPV 7.7 Absolute Neuts (auto) 6.5 Neutrophils % 71.9 Lymphocytes % 17.6 Monocytes % 6.4 Eosinophils % 3.6 Basophils % 0.5 Nucleated RBC % 0 D-Dimer Sodium 143 Potassium 3.9 Chloride 108 H Carbon Dioxide 30 Anion Gap 6 L BUN 8.0 Creatinine 0.8 Est GFR (CKD-EPI)AfAm 114.13 Est GFR (CKD-EPI)NonAf 98.47 Random Glucose 85 Hemoglobin A1c % Calcium 8.5 Magnesium 2.4 Total Bilirubin 0.4 AST 22 ALT 28 Alkaline Phosphatase 90 Creatine Kinase Creatine Kinase Index CK-MB (CK-2) Troponin I < 0.02 Total Protein 6.0 L Albumin 3.4 Triglycerides 135 Cholesterol 129 Total LDL Cholesterol 72 HDL Cholesterol 36 L TSH 1.33 04/06/19 05:40 WBC RBC Hgb Hct MCV MCH MCHC RDW Plt Count MPV Absolute Neuts (auto) Neutrophils % Lymphocytes % Monocytes % Eosinophils % Basophils % Nucleated RBC % D-Dimer Sodium Potassium Chloride Carbon Dioxide Anion Gap BUN Creatinine Est GFR (CKD-EPI)AfAm Est GFR (CKD-EPI)NonAf Random Glucose Hemoglobin A1c % 5.3 Calcium Magnesium Total Bilirubin AST ALT Alkaline Phosphatase Creatine Kinase Creatine Kinase Index CK-MB (CK-2) Troponin I Total Protein Albumin Triglycerides Cholesterol Total LDL Cholesterol HDL Cholesterol TSH HOSPITAL COURSE: Date of Admission:04/05/19 Date of Discharge: 04/06/19 - (1) Chest pain Assessment/Plan: Monitored on telemetry and no abnormal activity noted. troponins negatve x 3 CTA done and no evidence of PE noted. EKG with rbbb and sinus bradycardia Seen by cardiology and no further in patient testing required TTE done and nml findings Code(s): R07.9 - CHEST PAIN, UNSPECIFIED (2) COPD (chronic obstructive pulmonary disease) Assessment/Plan: on duonebs prn, continue home bronchodilators on discharge Code(s): J44.9 - CHRONIC OBSTRUCTIVE PULMONARY DISEASE, UNSPECIFIED (3) Coronary artery disease Assessment/Plan: on effient and asa 81mg every other day. Continue on discharge Code(s): I25.10 - ATHSCL HEART DISEASE OF [place] CORONARY ARTERY W/O ANG PCTRS (4) Hypertension Code(s): I10 - ESSENTIAL (PRIMARY) HYPERTENSION Well controlled (5) Prophylactic measure Assessment/Plan: Continue low salt/low choles diet upon discharge Code(s): Z29.9 - ENCOUNTER FOR PROPHYLACTIC MEASURES, UNSPECIFIED (6) DVT prophylaxis Assessment/Plan: on effient, continue current dose Code(s): Z29.9 - ENCOUNTER FOR PROPHYLACTIC MEASURES, UNSPECIFIED Minutes to complete discharge: 35 Discharge Summary Reason For Visit: CHEST PAIN Current Active Problems COPD (chronic obstructive pulmonary disease) (Acute) DVT prophylaxis (Acute) Hypertension (Acute) Prophylactic measure (Acute) Hospital Course: HOSPITAL COURSE: Date of Admission:04/05/19 Date of Discharge: 04/06/19 - (1) Chest pain Assessment/Plan: Monitored on telemetry and no abnormal activity noted. troponins negatve x 3 CTA done and no evidence of PE noted. EKG with rbbb and sinus bradycardia Seen by cardiology and no further in patient testing required TTE done and nml findings Code(s): R07.9 - CHEST PAIN, UNSPECIFIED (2) COPD (chronic obstructive pulmonary disease) Assessment/Plan: on duonebs prn, continue home bronchodilators on discharge Code(s): J44.9 - CHRONIC OBSTRUCTIVE PULMONARY DISEASE, UNSPECIFIED (3) Coronary artery disease Assessment/Plan: on effient and asa 81mg every other day. Continue on discharge Code(s): I25.10 - ATHSCL HEART DISEASE OF [place] CORONARY ARTERY W/O ANG PCTRS (4) Hypertension Code(s): I10 - ESSENTIAL (PRIMARY) HYPERTENSION Well controlled (5) Prophylactic measure Assessment/Plan: Continue low salt/low choles diet upon discharge Code(s): Z29.9 - ENCOUNTER FOR PROPHYLACTIC MEASURES, UNSPECIFIED (6) DVT prophylaxis Assessment/Plan: on effient, continue current dose Code(s): Z29.9 - ENCOUNTER FOR PROPHYLACTIC MEASURES, UNSPECIFIED Condition: Improved - Instructions Diet, Activity, Other Instructions: You may resume your normal diet at home-low fat low cholesterol is recommended. No changes in youe home medciations have been made. The echocardiogram was normal and the CT scan of the chest was normal-no blood clots were seen. You can follow with your home neurologist for the peripheral neuropathy. If the chest pain return or intensifies call your PCP or return to the ED. Referrals: Nancie Barber MD [Staff Physician] - (call for follow up appointment) - Home Medications Comprehensive Discharge Medication List: Ambulatory Orders Metoprolol Succinate [Toprol XL -] 25 mg PO DAILY #0 tab.sr.24h 10/31/11 Montelukast Na [Singulair -] 10 mg PO DAILY #0 tablet 10/31/11 Alprazolam [Xanax] 0.25 mg PO PRN PRN 04/05/14 Ramipril 2.5 mg PO DAILY 04/05/14 Rosuvastatin [Crestor -] 10 mg PO DAILY 05/11/16 Aspirin [Baby Aspirin] 81 mg PO Q2D 09/06/16 Cholecalciferol (Vitamin D3) [Vitamin D -] 400 unit PO DAILY 09/06/16 Diltiazem HCl [Cartia Xt] 120 mg PO DAILY 09/06/16 Niacin (Inositol Niacinate) [Niacin 500 mg Capsule] 500 mg PO DAILY 09/06/16 Prasugrel HCl [Effient] 5 mg PO DAILY #0 09/06/16 Pregabalin [Lyrica -] 200 mg PO ASDIR 09/06/16 Pregabalin [Lyrica] 100 mg PO AM 09/06/16 Salmeterol/Fluticasone [Advair 100Mcg/50Mcg -] 1 inh IH DAILY 09/06/16 Tiotropium [place] [Spiriva] 1 inh PO BID 09/06/16 Clotrimazole/Betamet Diprop [Lotrisone -] 1 applic TP BID #60 tube 11/13/16 Pantoprazole Sodium [Protonix -] 40 mg PO DAILY #30 cap 11/13/16 Prasugrel Hydrochloride [Effient -] 5 mg PO DAILY tab 04/06/19 This patient is new to me today: Yes Date on this admission: 04/06/19 Emergency Visit: Yes ED Registration Date: 04/05/19 Care time: The patient presented to the Emergency Department on the above date and was hospitalized for further evaluation of their emergent condition. Critical Care patient: No - Discharge Referral Referred to [facility] Med P.C.: No
[2019-04-07] MEDS ORDERED: ASPIRIN 81 MG CHEWABLE TABLETS PO SCH (10:00)
== END 2019-04-06 17:21 | disposition home or self-care (01) ==
LOC: JER 14:47 → JERBED 16:17 → J4W 18:53
PROVIDERS: ADMIT Internal Medicine; ATTEND Nurse Practitioner Acute Care
PROC: 3E033NZ Introduction of Analgesics, Hypnotics, Sedatives into Peripheral Vein, Percutaneous Approach (ICD-10-PCS; principal; 2019-04-05)
PROC: 3E033GC Introduction of Other Therapeutic Substance into Peripheral Vein, Percutaneous Approach (ICD-10-PCS; 2019-04-05)
PROC: 3E0F7GC Introduction of Other Therapeutic Substance into Respiratory Tract, Via Natural or Artificial Opening (ICD-10-PCS; 2019-04-05)
DX: R07.89 Other chest pain (principal); I10 Essential (primary) hypertension; E78.5 Hyperlipidemia, unspecified; I25.10 Atherosclerotic heart disease of native coronary artery without angina pectoris; J44.9 Chronic obstructive pulmonary disease, unspecified; M54.5 Low back pain; G89.29 Other chronic pain; M48.00 Spinal stenosis, site unspecified; G62.9 Polyneuropathy, unspecified; K21.9 Gastro-esophageal reflux disease without esophagitis; I45.10 Unspecified right bundle-branch block; Z79.83 Long term (current) use of bisphosphonates; Z87.891 Personal history of nicotine dependence; Z79.82 Long term (current) use of aspirin; Z88.5 Allergy status to narcotic agent; Z29.9 Encounter for prophylactic measures, unspecified
CPT/HCPCS: 36415; 71046-TC-FY; 71275-TC; 80053; 80061; 82550; 82553; 83036; 83721; 83735; 84436; 84443; 84484; 85025; 85379; 85610; 85730; 93005; 93010; 93306-TC; 99285-25; G0378; J0131; J7030

== ENCOUNTER 2019-04-08 14:48 | Emergency (ER) | payer BC ==
[2019-04-08] MEDS ORDERED: DIPHTH,PERTUSS(ACELL),TET VAC 0.5 ML VIAL IM ONE (15:00)
[2019-04-08 15:02] VITALS: BP 120/82; PULSE 62; TEMP 97.4; BMI 27.7
--- NOTE | 2019-04-08 15:02 | PDOC ---
Rapid Medical Evaluation Chief Complaint: Injury Time Seen by Provider: 04/08/19 14:58 Medical Evaluation: Allergies Allergy/AdvReac Type Severity Reaction Status Date / Time No Known Drug Allergies Allergy Verified 04/08/19 14:58 04/08/19 14:59 58 year old male s/p trip and fall c/o left shoulder and left elbow pain. no head injury patient is on effient PE: patient alert ox3. + hematoma and abrasion to left elbow. able to raise arm PMHX: cardiac stents, back surgery A: elbow / shoulder pain P: adacel xray patient to ER fofr further management of care. Discharge Disposition - Diagnosis Left elbow pain Left shoulder pain Qualifiers: Chronicity: acute Qualified Code(s): M25.512 - Pain in left shoulder - Referrals - Patient Instructions - Post Discharge Activity
[2019-04-08] MEDS ORDERED: DIPHTH,PERTUSS(ACELL),TET 0.5 ML DISP.SYRIN IM ONE (15:27)
--- NOTE | 2019-04-08 15:30 | PDOC ---
History of Present Illness - General Chief Complaint: Injury Stated Complaint: INJURY Time Seen by Provider: 04/08/19 14:58 - History of Present Illness Initial Comments: 04/08/19 15:28 CHIEF COMPLAINT: fall HISTORY OF PRESENT ILLNESS: 58 yo M with hx of hypertension, hyperlipidemia, CAD s/p 7 stents, COPD, chronic back pain, spinal stenosis, and lower extremity neuropathy (on lyrical bid) presents to fast track with pain to left elbow s/p fall. Patient states he was at a gas station when he tripped on a crack in the ground and fell on his elbow. Denies any head injury, denies LOC. He reports that he just "had a little scrape on his arm and the girl at the gas station cleaned it up, so I went to the grocery store, but now my elbow is swollen." He states he is currently on Effient. Unknown last tetanus shot. No recent travel or sick contacts. PAST MEDICAL HISTORY: HTN, HLD, CAD, COPD, chronic back pain, spinal stenosis, neuropathy FAMILY HISTORY: Denies SOCIAL HISTORY: Denies tobacco, alcohol, illicit drug use. SURGICAL HISTORY: stent placement, back surgery ALLERGIES: No known drug allergies REVIEW OF SYSTEMS General/Constitutional: Denies fever or chills. Denies weakness, weight change. HEENT: Denies change in vision. Denies ear pain or discharge. Denies sore throat. Cardiovascular: Denies chest pain or shortness of breath. Respiratory: Denies cough, wheezing, or hemoptysis. Gastrointestinal: Denies nausea, vomiting, diarrhea or constipation. Denies rectal bleeding. Genitourinary: Denies dysuria, frequency, or change in urination. Musculoskeletal: Pain and swelling to left elbow, pain to L shoulder. Denies neck or back pain. Skin: "I had a scratch on my elbow from falling." Denies rash or easy bruising. Neurologic: Denies headache, vertigo, loss of consciousness, or loss of sensation. Psychiatric: Denies depression or anxiety. Endocrine: Denies increased thirst. Denies abnormal weight change. Hematologic/Lymphatic: Denies anemia, easy bleeding, or history of blood clots. Allergic/Immunologic: Denies hives or skin allergy. Denies latex allergy. PHYSICAL EXAM General Appearance: Well-appearing, appropriately dressed. No apparent distress , no intoxication. HEENT: EOMI, PERRLA, normal ENT inspection, normal voice, TMs normal, pharynx normal. No conjunctival pallor. No photophobia, scleral icterus. Neck: Supple. Trachea midline. No tenderness, rigidity, carotid bruit, stridor , lymphadenopathy, or thyromegaly. Respiratory/Chest: Lungs CTAB. No shortness of breath, chest tenderness, respiratory distress, accessory muscle use. No crackles, rales, rhonchi, stridor , wheezing, dullness Cardiovascular: RRR. S1, S2. No JVD, murmur, bradycardia, tachycardia. Vascular Pulses: Dorsalis-Pedis (R): 2+, Dorsalis-Pedis (L): 2+ Gastrointestinal/Abdominal: Normal bowel sounds. Abdomen soft, non-distended. No tenderness or rebound tenderness. No organomegaly, pulsatile mass, guarding , hernia, hepatomegaly, splenomegaly. Lymphatic: No adenopathy, tenderness. Musculoskeletal/Extremities: Marked swelling and tenderness to L elbow; full extension/flexion, neurovascularly intact. Full ROM to L shoulder. FROM of all other extremities, normal capillary refill. Pelvis Stable. No CVA tenderness. No tenderness to extremities, pedal edema, swelling, erythema or deformity. Integumentary: Abrasion to left elbow, no active bleeding. Appropriate color, dry, warm. No cyanosis, erythema, jaundice or rash Neurologic: hospital cna II-XII intact. Fully oriented, alert. Appropriate mood/affect. Motor strength 5/5. No appreciable EOM palsy, facial droop or sensory deficit. Past History - Past Medical History Allergies/Adverse Reactions: Allergies Allergy/AdvReac Type Severity Reaction Status Date / Time No Known Drug Allergies Allergy Verified 04/08/19 14:58 Home Medications: Ambulatory Orders Metoprolol Succinate [Toprol XL -] 25 mg PO DAILY #0 tab.sr.24h 10/31/11 Montelukast Na [Singulair -] 10 mg PO DAILY #0 tablet 10/31/11 Alprazolam [Xanax] 0.25 mg PO PRN PRN 04/05/14 Ramipril 2.5 mg PO DAILY 04/05/14 Rosuvastatin [Crestor -] 10 mg PO DAILY 05/11/16 Aspirin [Baby Aspirin] 81 mg PO Q2D 09/06/16 Cholecalciferol (Vitamin D3) [Vitamin D -] 400 unit PO DAILY 09/06/16 Diltiazem HCl [Cartia Xt] 120 mg PO DAILY 09/06/16 Niacin (Inositol Niacinate) [Niacin 500 mg Capsule] 500 mg PO DAILY 09/06/16 Prasugrel HCl [Effient] 5 mg PO DAILY #0 09/06/16 Pregabalin [Lyrica -] 200 mg PO ASDIR 09/06/16 Pregabalin [Lyrica] 100 mg PO AM 09/06/16 Salmeterol/Fluticasone [Advair 100Mcg/50Mcg -] 1 inh IH DAILY 09/06/16 Tiotropium Ariel [Spiriva] 1 inh PO BID 09/06/16 Clotrimazole/Betamet Diprop [Lotrisone -] 1 applic TP BID #60 tube 11/13/16 Pantoprazole Sodium [Protonix -] 40 mg PO DAILY #30 cap 11/13/16 Prasugrel Hydrochloride [Effient -] 5 mg PO DAILY tab 04/06/19 Anemia: No Asthma: No Cancer: No Cardiac Disorders: Yes (ASHD.CO-6 STENTS) CVA: No COPD: Yes CHF: No Dementia: No Diabetes: No GI Disorders: Yes (GERD,EOSINOPHILIC GASTRITIS) Disorders: No HTN: Yes Hypercholesterolemia: Yes Liver Disease: Yes (MILD HEPATITIS GRADE 2) Seizures: No Thyroid Disease: No - Surgical History Abdominal Surgery: No Appendectomy: No Cardiac Surgery: Yes (6 CARDIAC STENTS) Cholecystectomy: No Lung Surgery: No Neurologic Surgery: No Orthopedic Surgery: Yes (LAMINECTOMY) - Immunization History Immunization Up to Date: Yes - Suicide/Smoking/Psychosocial Hx Smoking Status: No Smoking History: Former smoker Have you smoked in the past 12 months: No Number of Cigarettes Smoked Daily: 2 If you are a former smoker, when did you quit?: 2016 Information on smoking cessation initiated: No Hx Alcohol Use: No Drug/Substance Use Hx: No Substance Use Type: None Hx Substance Use Treatment: No *Physical Exam - Vital Signs Last Vital Signs Temp Pulse Resp BP Pulse Ox 97.4 F L 62 18 120/82 97 04/08/19 14:58 04/08/19 14:58 04/08/19 14:58 04/08/19 14:58 04/08/19 14:58 Medical Decision Making - Medical Decision Making 04/08/19 15:35 58 yo M with hx of hypertension, hyperlipidemia, CAD s/p 7 stents, COPD, chronic back pain, spinal stenosis, and lower extremity neuropathy (on lyrical bid) presents to fast track with pain to left elbow s/p fall. -elbow/shoulder x-rays -tdap x-rays negative. Advised patient to take medication as prescribed and follow up with ortho if symptoms persist past 1 week. Advised patient of signs and symptoms for return to ED. Patient verbalized understanding and agrees to plan. *DC/Admit/Observation/Transfer Diagnosis at time of Disposition: Left elbow pain Left shoulder pain Qualifiers: Chronicity: acute Qualified Code(s): M25.512 - Pain in left shoulder - Discharge Dispostion Disposition: HOME Condition at time of disposition: Stable Decision to Admit order: No - Referrals Referrals: Curtis Ellis MD [Primary Care Provider] - Joey Lombardo MD [Staff Physician] - Brando Burns DO [Staff Physician] - - Patient Instructions Printed Discharge Instructions: DI for Elbow Pain Additional Instructions: Please monitor your elbow for any increased swelling or pain. If the elbow becomes tense from the swelling or you become unable to straighten your arm, please return to the ER immediately. If your pain persists past one week, please follow up with orthopedics. - Post Discharge Activity
== END 2019-04-08 16:55 | disposition home or self-care (01) ==
LOC: JERFT 14:48
PROC: 3E0234Z Introduction of Serum, Toxoid and Vaccine into Muscle, Percutaneous Approach (ICD-10-PCS; principal; 2019-04-08)
DX: M25.512 Pain in left shoulder (principal); M25.522 Pain in left elbow; W01.0XXA Fall on same level from slipping, tripping and stumbling without subsequent striking against object, initial encounter; Y93.89 Activity, other specified; Y92.89 Other specified places as the place of occurrence of the external cause
CPT/HCPCS: 73030-TC-LT-FY; 73070-TC-LT-FY; 99281-25

== ENCOUNTER 2019-08-12 06:09 | Day surgery (SDC) | payer BC ==
[2019-08-11 12:58] VITALS: BMI 29.6
--- NOTE | 2019-08-12 06:37 | HP ---
Satellite [facility] - Chief Complaint Chief Complaint: left shoulder pain - Past Medical History Allergies/Adverse Reactions: Allergies Allergy/AdvReac Type Severity Reaction Status Date / Time No Known Drug Allergies Allergy Verified 08/12/19 07:21 VOLUMETRIC WEIGHER: Yes: Peripheral Neuropathy Cardiovascular: Yes: CAD, HTN, Hyperlipdemia Pulmonary: Yes: COPD Musculoskeletal: Yes: Chronic low back pain (/ spinal stenosis) Endocrine: Yes: Other (glucose intolerance) - Current Medications Current Medications: Home Medications Medication Instructions Recorded Metoprolol Succinate [Toprol XL -] 25 mg PO DAILY #0 tab.sr.24h 10/31/11 Montelukast Na [Singulair -] 10 mg PO DAILY #0 tablet 10/31/11 Alprazolam [Xanax] 0.25 mg PO PRN PRN 04/05/14 Ramipril 2.5 mg PO DAILY 04/05/14 Rosuvastatin [Crestor -] 10 mg PO DAILY 05/11/16 Aspirin [Baby Aspirin] 81 mg PO Q2D 09/06/16 Cholecalciferol (Vitamin D3) 400 unit PO DAILY 09/06/16 [Vitamin D -] Diltiazem HCl [Cartia Xt] 120 mg PO DAILY 09/06/16 Niacin (Inositol Niacinate) 500 mg PO DAILY 09/06/16 [Niacin 500 mg Capsule] Pregabalin [Lyrica -] 200 mg PO AM 09/06/16 Pregabalin [Lyrica] 400 mg PO HS 09/06/16 Salmeterol/Fluticasone [Advair 1 inh IH DAILY 09/06/16 100Mcg/50Mcg -] Tiotropium [place] [Spiriva] 1 inh PO BID 09/06/16 Pantoprazole Sodium [Protonix -] 40 mg PO DAILY #30 cap 11/13/16 Prasugrel Hydrochloride [Effient -] 5 mg PO DAILY tab 04/06/19 Satellite Physical Exam - Physical Examination General Appearance: Well Nourished, Well Developed, Alert & Oriented x3 ENT: Clear Lung: Normal air movement Extremities: Other (left shoulder- + ttp, decr rom, + empty can, + neer, + guerra, nvi) Neurological: Intact, Alert, Oriented Satellite Impression/Plan - Impression/Plan Impression: left shoulder rct Operative Procedure: left shoulder arthroscopy with rcr, sad Date to be Performed: 08/12/19
[2019-08-12] MEDS ORDERED: MIDAZOLAM HCL 2 MG/2 ML SINGLE DOSE VIAL ONE ×2 (07:54)
[2019-08-12] MEDS ORDERED: SUCCINYLCHOLINE CHLORIDE 200 MG/10 ML SYRINGE ONE (08:09)
[2019-08-12] MEDS ORDERED: PROPOFOL 20 ML ONE (08:09)
[2019-08-12] MEDS ORDERED: ceFAZolin SODIUM 1 GM VIAL ONE (08:30)
[2019-08-12] MEDS ORDERED: EPHEDRINE SULFATE/0.9% NACL/PF 50 MG/10 ML SYRINGE NR ONE (08:34)
[2019-08-12] MEDS ORDERED: ceFAZolin SODIUM 1 GM VIAL IVPB ONE (08:35)
[2019-08-12] MEDS ORDERED: ATROPINE SO4 0.4 MG/1 ML VIAL ONE (08:40)
[2019-08-12] MEDS ORDERED: DEXAMETHASONE SOD PHOSPHATE 4 MG/1 ML VIAL ONE (08:45)
[2019-08-12] MEDS ORDERED: PHENYLEPHRINE HCL 10 MG/1 ML SINGLE DOSE VIAL ONE (08:58)
--- NOTE | 2019-08-12 09:47 | OP ---
Operative Note - Note: Operative Date: 08/12/19 [place] Pre-Operative Diagnosis: left shoulder rct Operation: left shoulder arthroscopy with RCR, SAD Post-Operative Diagnosis: Same as Pre-op Surgeon: Evelio Gilbert [employer] Coach: Agustin Smith Anesthesiologist/MANAGER OF TRANSPORTATION: Kinza Dalton Anesthesia: General, Local Specimens Removed: shavings Estimated Blood Loss (mls): 5
[2019-08-12] MEDS ORDERED: ONDANSETRON 4 MG/2 ML VIAL IVPUSH PRN (10:56)
[2019-08-12] MEDS ORDERED: oxyCODONE HCL 5 MG TABLET PO PRN ×2 (10:56)
[2019-08-12] MEDS ORDERED: LACTATED RINGERS SOLUTION 1,000 ML IV SCH (11:00)
[2019-08-12 12:03] VITALS: TEMP 98.8
[2019-08-12 12:59] VITALS: BP 118/58; PULSE 72
--- NOTE | 2019-08-12 14:08 | OP ---
DATE OF OPERATION: 08/12/2019 PREOPERATIVE DIAGNOSIS: Left shoulder pain, impingement syndrome, and rotator cuff tear. POSTOPERATIVE DIAGNOSIS: Left shoulder pain, impingement syndrome, and rotator cuff tear. PROCEDURE: 1. Left shoulder arthroscopy. 2. Subacromial decompression. 3. Mini-open rotator cuff repair. SURGEON: Evelio Gilbert MD WOUND SPECIALIST: CARLOS ENRIQUE Mcclure ANESTHESIOLOGIST: Kinza Dalton DO ANESTHESIA: Left interscalene block with LMA anesthesia. DRAINS: None. COMPLICATIONS: None. BLOOD LOSS: Minimal. BLOOD GIVEN: None. FLUID REPLACEMENT: Plasmalyte 700 mL. INDICATIONS: This patient is a 58-year-old male with a preoperative diagnosis of significant left shoulder pain, weakness, decreased range of motion, impingement syndrome, and a rotator cuff tear. After understanding the potential risks, complications, alternatives, and benefits of surgery versus nonsurgical treatment, the patient elected to undergo this procedure. The patient understands he may not get complete relief of his symptoms. He may still have weakness, especially with continued rotator cuff pathology, as a portion may not be repairable. PROCEDURE: The patient was brought to the operating room. Peripheral IV placed. IV sedation given. Two grams of IV Ancef given. A left interscalene block was performed. LMA anesthesia was induced. He was placed into the beach-chair position with ample padding throughout. The left upper extremity was prepped and draped in sterile fashion. A manipulation under anesthesia was done. There was no adhesive capsulitis. The bony landmarks were marked out with a marking pen. A posterior portal was established and a diagnostic glenohumeral arthroscopy was performed. Inside the joint, the patient had a full-thickness, supraspinatus-retracted rotator cuff tear. It was a crescent shape with a large circular component. It looks like the head had just eroded superiorly right through the rotator cuff. There was a portion of the cuff still attached posteriorly and laterally that could be used for attempted repair. The labrum and the glenohumeral joint looked good. The biceps tendon looked good. Our attention then turned to the subacromial space. A lateral portal was established under direct visualization. An extensive bursectomy/soft-tissue bursectomy/soft-tissue subacromial decompression was performed, revealing a moderate-size subacromial spur. There was no distal clavicular spur. The 5.5-mm oval bur was used to take down the subacromial bony spur. It was fine tuned in reverse and then with the shaver. All soft tissue and bony debris was removed. Additional bursectomy was performed with the ArthroCare wand and the straight shaver. The patient had a huge rotator cuff tear. Some of it was able to be mobilized and we could attempt a [id number] repair. Therefore, four FiberWire sutures were placed with the Streetline arthroscopic needle passer. The arthroscopic equipment was then removed and we converted to a mini-open approach. The lateral portal was extended with a No. 15 scalpel blade. Subcutaneous hemostasis was achieved with the Bovie cautery. Gelpi and Marva retractors were placed into the wound. We were able to directly visualize the rotator cuff tear. Additional open bursectomy was performed with a rongeur and Bovie. We attempted to mobilize the rotator cuff more. It did not come down to the lateral side, but as mentioned, there was some lateral rotator cuff tear still attached to the humerus. Therefore, we did a [id number] repair, closing down the apex of sutures number 1 to 2 and then 3 to 4, and then did two single-FiberWire fixations with a free needle. This covered the head, it closed the gap, it completed the rotator cuff . We attached it off with a FiberWire to the lateral portion of the rotator cuff that was still attached to the head. Overall, I was happy we could repair any of it. I would say, we repaired 85% of it, but what was left of his rotator cuff that we were able to repair was not of good quality. His function is unpredictable. The area was copiously irrigated and washed out The closure was done with 0 Vicryl in the deltoid fascial layer, 2-0 Vicryl in the deep dermal layer. Final skin reapproximation was done with a running subcuticular 3-0 V-Loc suture. A single wwtpta-[id number]-gzheb suture with 3-0 nylon was used to close the posterior portal. The area was then washed and dried. glue was applied. Aquacel dressing was applied. He was put into a shoulder immobilizer, extubated. Total operative time was about 50 minutes. There were no complications during the case. The patient tolerated the procedure quite well and was bought to the ambulatory recovery room in stable condition. Blood loss was minimal. There were no events. Gustavo [id number]
--- NOTE | 2019-08-13 11:21 | PATH ---
Surgical Pathology Report Patient Name: LUIS MATOS Med. Rec. #: [id number] /Age/Gender: 1960 (Age: 58) / M Account: [id number] Location: [facility] SURGICAL Taken: 08/12/2019 Received: 08/12/2019 Reported: 08/13/2019 Physicians: Evelio Gilbert M.D. Specimen(s) Received LEFT SHOULDER SHAVINGS Clinical History Left shoulder tear Final Diagnosis LEFT SHOULDER, ARTHROSCOPIC SHAVING: PORTIONS OF SYNOVIUM, CARTILAGE, SKELETAL MUSCLE AND BONE CONSISTENT WITH ARTHROSCOPIC SHAVINGS. Electronically Signed Pablito Basilio M.D. Gross Description Received in formalin, labeled "left shoulder shavings," is a 4.5 x 4.0 x 0.5 cm. aggregate of negrete-yellow soft tissue fragments. A charter representative portion is submitted in one cassette. DL/08/12/2019 saudi/08/12/2019
== END 2019-08-12 12:50 | disposition home or self-care (01) ==
LOC: JASU-SURG 06:09
PROVIDERS: ATTEND Orthopaedic Surgery
PROC: 0RNK4ZZ Release Left Shoulder Joint, Percutaneous Endoscopic Approach (ICD-10-PCS; principal; 2019-08-12 08:00)
PROC: 0LQ20ZZ Repair Left Shoulder Tendon, Open Approach (ICD-10-PCS; 2019-08-12 08:00)
DX: M75.42 Impingement syndrome of left shoulder (principal); M75.102 Unspecified rotator cuff tear or rupture of left shoulder, not specified as traumatic
CPT/HCPCS: 88304-TC; 94760

== ENCOUNTER 2020-05-03 09:43 | Emergency (ER) | payer BC ==
[2020-05-03 09:49] VITALS: BMI 29.7
--- OUTSIDE RECORDS SUMMARY | 2020-05-03 10:12 | XMS ---
:1960 Author Organization [facility] Support Name Relationship Address Phone RE Unavailable Unavailable Unavailable RICHMOND MATOS [address] [phone] [place] [address] Re-disclosure Warning The records that you are about to access may contain information from federally- assisted alcohol or drug abuse programs. If such information is present, then the following federally mandated warning applies: This information has been disclosed to you from records protected by federal confidentiality rules (42 CFR part 2). The federal rules prohibit you from making any further disclosure of this information unless further disclosure is expressly permitted by the written consent of the person to whom it pertains or as otherwise permitted by 42 CFR part 2. A general authorization for the release of medical or other information is NOT sufficient for this purpose. The Federal rules restrict any use of the information to criminally investigate or prosecute any alcohol or drug abuse patient.The records that you are about to access may contain highly sensitive health information, the redisclosure of which is protected by Article 27-F of the [facility] Public Health law. If you continue you may haveaccess to information: Regarding HIV / AIDS; Provided by facilities licensed or operated by the [facility] Office of Mental Health; or Provided by the [facility] Office for People With Developmental Disabilities. If such information is present, then the following [facility] mandated warning applies: This information has been disclosed to you from confidential records which are protected by state law. State law prohibits you from making any further disclosure of this information without the specific written consent of the person to whom it pertains, or as otherwise permitted by law. Any unauthorized further disclosure in violation of state law may result in a fine or snf sentence or both. A general authorization for the release of medical or other information is NOT sufficient authorization for further disclosure. Insurance Providers Payer name Policy type Policy ID Covered Covered constitution party's Policy P dre / Coverage constitution party ID relationship to [place] [employer] type [place] P[place] [id number] OT [id number] MEDICARE [id number] SP [id number] A Results ID Date Data Source [id number] 04/11/2020 12:00:00 AM EDT [place] Name Value Range Interpretation Description Data Sup porting Code Source(s) Document(s ) Nasopharyngeal [place] Swab SARS-CoV-2 / COVID-19 This lab was ordered by [employer] and reported by [facility]. Procedure
[2020-05-03] MEDS ORDERED: ACETAMINOPHEN 1000 MG/100 ML VIAL (NON FORMULARY) IVPB ONE (10:30)
[2020-05-03] MEDS ORDERED: ACETAMINOPHEN INJECTION 100 ML IVPB ONE (10:47)
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
[2020-05-03 15:06] VITALS: BP 110/64; PULSE 71; TEMP 98.2
== END 2020-05-03 15:07 | disposition home or self-care (01) ==
LOC: JER 09:43
PROC: 3E0333Z Introduction of Anti-inflammatory into Peripheral Vein, Percutaneous Approach (ICD-10-PCS; principal; 2020-05-03)
DX: S20.211A Contusion of right front wall of thorax, initial encounter (principal); S09.90XA Unspecified injury of head, initial encounter
CPT/HCPCS: 70450-TC; 70486-TC; 71046-TC-FY; 71101-TC-LT-FY; 72125-TC; 73030-TC-RT-FY; 73060-TC-RT-FY; 99285-25; J0131

== ENCOUNTER 2020-06-02 04:51 | Day surgery (SDC) | payer BC ==
--- OUTSIDE RECORDS SUMMARY | 2020-05-19 09:45 | XMS ---
:1960 Author Organization [facility] Support Name Relationship Address Phone RE Unavailable Unavailable Unavailable RICHMOND MATOS [address] [place] [address] RICHMOND MATOS spouse [id number] [place] [address] Re-disclosure Warning The records that you are [...] is protected by Article 27-F of the [facility] Public Health law. If you continue you may haveaccess to information: Regarding HIV / AIDS; Provided by facilities licensed or operated by the [facility] Office of Mental Health; or Provided by the [facility] Office for People With Developmental Disabilities. If such information is present, then the following [facility] mandated warning applies: This information has [...] law may result in a fine or fpc sentence or both. A general authorization for the release of medical or other information is NOT sufficient authorization for further disclosure. Insurance Providers Payer name Policy type Policy ID Covered Covered green party's Policy P dre / Coverage green party ID relationship to [place] [employer] type [place] [id number] OT [id number] MEDICARE [id number] A Results ID Date Data Source [id number] 04/11/2020 12:00:00 AM EDT [facility] Name Value Range Interpretation Description Data Sup porting Code Source(s) Document(s ) Nasopharyngeal [facility] Swab SARS-CoV-2 / COVID-19 This lab was ordered by [facility] [employer] and reported by [facility] [employer]. Procedure
--- OUTSIDE RECORDS SUMMARY | 2020-06-02 04:55 | XMS ---
:1960 Author Organization [facility] Support Name Relationship Address Phone RE, RETIRED Unavailable Unavailable Unavailable RE Unavailable Unavailable Unavailable RICHMOND MATOS [address] [place] [address] RICHMOND MATOS Spouse [address] [place] [address] Re-disclosure Warning The records that you are [...] is protected by Article 27-F of the [facility] Public Health law. If you continue you may haveaccess to information: Regarding HIV / AIDS; Provided by facilities licensed or operated by the [facility] Office of Mental Health; or Provided by the [facility] Office for People With Developmental Disabilities. If such information is present, then the following [facility] mandated warning applies: This information has [...] law may result in a fine or fci sentence or both. A general authorization for the release of medical or other information is NOT sufficient authorization for further disclosure. Insurance Providers Payer name Policy type Policy ID Covered Covered green party's Policy P dre / Coverage green party ID relationship to [place] [employer] [place] P[place] [id number] OT [id number] BC PPO [id number] OT [id number] MEDICARE [id number] A Results ID Date Data Source [id number] 05/28/2020 12:32:00 PM EST [facility] Name Value Range Interpretation Description Data Sup porting Code Source(s) Document(s ) SARS [facility] coronavirus 2 RNA This lab was ordered by [facility] and reported by [facility]. ID Date Data Source [id number] 04/11/2020 12:00:00 AM EDT [facility] Name Value Range Interpretation Description Data Sup porting Code Source(s) Document(s ) Nasopharyngeal [facility] Swab SARS-CoV-2 / COVID-19 This lab was ordered by [employer] and reported by [facility] [employer]. Procedure
[2020-06-02 09:10] VITALS: BMI 32.0
[2020-06-02 10:45] VITALS: TEMP 98.1
[2020-06-02 10:55] VITALS: PULSE 62
[2020-06-02 11:19] VITALS: BP 105/65
--- NOTE | 2020-06-05 11:43 | PATH ---
Surgical Pathology Report Patient Name: LUIS MATOS [facility]. Rec. #: [id number] /Age/Gender: 1960 (Age: 59) / M Account: [id number] Location: ASU-ENDOSCOPY Taken: 06/02/2020 Received: 06/02/2020 Reported: 06/05/2020 Physicians: Arline Aleman M.D. Specimen(s) Received A: DISTAL TRANSVERSE COLON POLYP B: PROXIMAL TRANSVERSE COLON POLYP C: POLYP RIGHT COLON D: RECTAL POLYP Clinical History Adenoma surveillance Postoperative diagnosis: Colon polyps, diverticulosis Final Diagnosis A. DISTAL TRANSVERSE COLON, POLYP, BIOPSY: TUBULAR ADENOMA. B. PROXIMAL TRANSVERSE COLON, POLYP, BIOPSY: POLYPOID COLONIC MUCOSA WITH SMALL LYMPHOID AGGREGATES. C. COLON, RIGHT, POLYP, BIOPSY: TUBULAR ADENOMA. D. RECTAL POLYP, BIOPSY: HYPERPLASTIC POLYP. Electronically Signed Yoko Canas M.D. Gross Description A. Received in formalin, labeled "biopsy distal transverse colon polyp" is a negrete, irregular portion of soft tissue measuring 0.4 cm. in greatest dimension. The specimen is submitted in toto in one cassette. B. Received in formalin, labeled "biopsy proximal transverse colon polyp" are 2 negrete, irregular portions of soft tissue measuring 0.2 and 0.5 cm. in greatest dimension. The specimens are submitted in toto in one cassette. C. Received in formalin, labeled "polyp right colon" are 4 negrete, irregular portions of soft tissue ranging from 0.3-0.6 cm. in greatest dimension. The specimens are submitted in toto in one cassette. D. Received in formalin, labeled "biopsy rectal polyp" is a negrete, irregular portion of soft tissue measuring 0.2 cm. in greatest dimension. The specimen is submitted in toto in one cassette. DL/06/02/2020 saudi/06/02/2020
== END 2020-06-02 12:14 | disposition home or self-care (01) ==
LOC: JASU-ENDO 04:51
PROVIDERS: ATTEND Internal Medicine Gastroenterology
PROC: 0DBL8ZX Excision of Transverse Colon, Via Natural or Artificial Opening Endoscopic, Diagnostic (ICD-10-PCS; 2020-06-02)
PROC: 0DBP8ZX Excision of Rectum, Via Natural or Artificial Opening Endoscopic, Diagnostic (ICD-10-PCS; 2020-06-02)
PROC: 0DBK8ZX Excision of Ascending Colon, Via Natural or Artificial Opening Endoscopic, Diagnostic (ICD-10-PCS; principal; 2020-06-02 10:00)
DX: Z86.010 Personal history of colon polyps (principal); D12.2 Benign neoplasm of ascending colon; D12.3 Benign neoplasm of transverse colon; K57.30 Diverticulosis of large intestine without perforation or abscess without bleeding; K30 Functional dyspepsia; I25.10 Atherosclerotic heart disease of native coronary artery without angina pectoris; Z95.5 Presence of coronary angioplasty implant and graft; I25.2 Old myocardial infarction; E78.5 Hyperlipidemia, unspecified; J44.9 Chronic obstructive pulmonary disease, unspecified; K21.9 Gastro-esophageal reflux disease without esophagitis; Z83.71 Family history of colonic polyps
CPT/HCPCS: 88305-TC

== ENCOUNTER 2020-09-05 15:56 | Inpatient (IN) | payer BC, OTHER ==
[2020-09-05] MEDS ORDERED: ACETAMINOPHEN 500 MG TABLET (FP) PO ONE (17:58)
[2020-09-05] MEDS ORDERED: SODIUM CHLORIDE 500 ML IV STA ×2 (17:58→19:37)
[2020-09-05 18:28] LABS: BASO % 0.5 % (0-2.0); EOS % 0.7 % (0-4.5); HEMATOCRIT 41.6 % (35.4-49); HEMOGLOBIN 13.7 GM/dL (11.7-16.9); LYMPH % 4.6 % (8-40); MCH 26.2 pg (25.7-33.7); MCHC 32.9 g/dl (32.0-35.9); MEAN CELL VOLUME 79.7 fl (80-96); MEAN PLT VOLUME 7.9 fl (7.5-11.1); MONO % 3.7 % (3.8-10.2); NEUT % 90.5 % (42.8-82.8); PLATELET COUNT 286 K/MM3 (134-434); RBC 5.22 M/mm3 (4.00-5.60); RDW 16.1 % (11.9-15.9); WHITE BLOOD COUNT 14.8 K/mm3 (4.0-10.0)
[2020-09-05 18:32] LABS: INR 1.2 (0.83-1.09); PROTHROMBIN TIME (PATIENT) 14.4 SEC (9.7-13.0)
[2020-09-05 18:35] LABS: ACTIVATED PTT 33.8 SECONDS (25.2-36.5)
[2020-09-05 18:39] LABS: EPI CELLS 2 /uL (0-25.1); HYALINE CASTS 0 /uL (0-3.1); PH,URINE 7.5 (5.0-8.0); URINE APPEARANCE CLEAR; URINE BACTERIA 96 /uL (0-1359); URINE BILIRUBIN NEGATIVE (NEGATIVE); URINE COLOR YELLOW; URINE GLUCOSE (UA) NEGATIVE (NEGATIVE); URINE KETONE NEGATIVE (NEGATIVE); URINE LEUK ESTERASE NEGATIVE (NEGATIVE); URINE NITRITE NEGATIVE (NEGATIVE); URINE PROTEIN NEGATIVE (NEGATIVE); URINE RBC 11 /uL (0-23.9); URINE UROBILINOGEN 0.2 mg/dL (0.2-1.0); URINE WBC 1 /uL (0-25.8)
[2020-09-05 18:45] LABS: CHLORIDE 105 mmol/L (98-107); POTASSIUM 3.7 mmol/L (3.5-5.1); SODIUM 142 mmol/L (136-145)
[2020-09-05] MEDS ORDERED: PIPERACILLIN/TAZOBACTAM 4.5 GM VIAL IVPB ONE (18:45)
[2020-09-05] MEDS ORDERED: VANCOMYCIN 1,000 MG in DEXTROSE 5%-WATER - 250 ML IVPB ONE (18:45)
[2020-09-05 18:48] LABS: ANION GAP 10 MMOL/L (8-16); BLOOD UREA NITROGEN 4.5 mg/dL (7-18); CALCIUM 8.3 mg/dL (8.5-10.1); CO2 26 mmol/L (21-32); GLUCOSE,RANDOM 156 mg/dL (74-106)
[2020-09-05] MEDS ORDERED: PIPERACILLIN/TAZOB 4.5 GM 4.5 GM/100 ML BAG IVPB ONE (18:48)
[2020-09-05 18:49] LABS: ALBUMIN 3.8 g/dl (3.4-5.0)
[2020-09-05 18:51] LABS: SGPT/ALT 25 U/L (13-61)
[2020-09-05 18:52] LABS: SGOT/AST 16 U/L (15-37)
[2020-09-05 18:53] LABS: BILIRUBIN,TOTAL 0.8 mg/dL (0.2-1); TOT PROT 6.8 g/dl (6.4-8.2)
[2020-09-05 18:54] LABS: ALK PHOS 84 U/L (45-117)
[2020-09-05] MEDS ORDERED: VANCOMYCIN 1 GRAM (PRE-DOCKED) 1,000 MG/250 ML BAG IVPB ONE (20:12)
[2020-09-05] MEDS ORDERED: LACTATED RINGERS SOLUTION 1000 ML INFUS.BAG IV ONE (20:14)
[2020-09-05] MEDS: LACTATED RINGERS SOLUTION 1,000 ML IV SCH (23:56)
[2020-09-06] MEDS ORDERED: PIPERACILLIN/TAZOBACTAM 3.375 GM VIAL IVPB ONE ×2 (01:50→08:46)
[2020-09-06] MEDS ORDERED: DEXTROSE 5%-WATER - 50 ML IVPB ONE ×3 (01:50→12:18)
[2020-09-06] MEDS: PIPERACILLIN/TAZOB 3.375 GM 3.375 GM in DEXTROSE 5%-WATER - 50 ML IVPB SCH ×2 (01:58→09:46)
[2020-09-06] MEDS: ACETAMINOPHEN 325 MG TABLET (FP) PO PRN ×2 (01:58→09:44)
[2020-09-06] MEDS: ENOXAPARIN NA (PORCINE) 40 MG/0.4 ML DISP.SYRIN SQ SCH (09:46)
[2020-09-06 09:55] LABS: BASO % 0.3 % (0-2.0); EOS % 1.4 % (0-4.5); HEMOGLOBIN 13.1 GM/dL (11.7-16.9); LYMPH % 6.6 % (8-40); MCH 26.2 pg (25.7-33.7); MCHC 32.9 g/dl (32.0-35.9); MEAN CELL VOLUME 79.8 fl (80-96); MONO % 6.1 % (3.8-10.2); NEUT % 85.6 % (42.8-82.8); PLATELET COUNT 214 K/MM3 (134-434); RBC 5.01 M/mm3 (4.00-5.60); RDW 15.6 % (11.9-15.9)
[2020-09-06 10:07] LABS: POTASSIUM 3.6 mmol/L (3.5-5.1)
[2020-09-06 10:45] LABS: ALBUMIN 3.2 g/dl (3.4-5.0); CALCIUM 7.9 mg/dL (8.5-10.1)
[2020-09-06 10:48] LABS: CREATININE 0.9 mg/dL (0.55-1.3); PHOSPHOROUS 2.9 mg/dL (2.5-4.9)
[2020-09-06 10:49] LABS: TOT PROT 5.8 g/dl (6.4-8.2)
[2020-09-06] MEDS ORDERED: VANCOMYCIN HCL 1,500 MG in DEXTROSE 5%-WATER - 500 ML IVPB ONE (12:00)
[2020-09-06] MEDS ORDERED: VANCOMYCIN 1 GM in D5W (PRE-DOCKED) 1,000 MG/250 ML IVPB SCH (12:00)
[2020-09-06] MEDS ORDERED: PIPERACILLIN/TAZOB 3.375 GM 3.375 GM in DEXTROSE 5%-WATER - 50 ML IVPB SCH (12:00)
[2020-09-06] MEDS ORDERED: cefTRIAXone SODIUM 1 GM VIAL ONE (12:17)
[2020-09-06] MEDS: PREGABALIN 100 MG CAPSULE PO SCH ×2 (12:22→21:40)
[2020-09-06] MEDS: CEFTRIAXONE 1 GM in DEXTROSE 5%-WATER - 50 ML IVPB SCH (12:22)
[2020-09-06] MEDS: metoPROLOL SUCCINATE 25 MG TAB.SR.24H (FP) PO SCH (14:49)
[2020-09-06] MEDS: MONTELUKAST NA 10 MG TABLET PO SCH (21:39)
[2020-09-06] MEDS ORDERED: PREGABALIN 100 MG CAPSULE PO SCH (22:00)
[2020-09-07] MEDS: LACTATED RINGERS SOLUTION 1,000 ML IV SCH (05:16)
[2020-09-07] MEDS ORDERED: ALBUTEROL SO4 HFA INHALER IH PRN (08:36)
[2020-09-07 09:21] LABS: HEMATOCRIT 40.4 % (35.4-49); HEMOGLOBIN 13.5 GM/dL (11.7-16.9); MCH 26.3 pg (25.7-33.7); MCHC 33.4 g/dl (32.0-35.9); MEAN CELL VOLUME 78.5 fl (80-96); MEAN PLT VOLUME 7.9 fl (7.5-11.1); PLATELET COUNT 244 K/MM3 (134-434); RBC 5.15 M/mm3 (4.00-5.60); RDW 16.5 % (11.9-15.9); WHITE BLOOD COUNT 11.2 K/mm3 (4.0-10.0)
[2020-09-07 09:43] LABS: POTASSIUM 4.2 mmol/L (3.5-5.1)
[2020-09-07] MEDS ORDERED: DEXTROSE 5%-WATER - 50 ML IVPB ONE (09:55)
[2020-09-07] MEDS ORDERED: cefTRIAXone SODIUM 1 GM VIAL ONE (09:55)
[2020-09-07] MEDS ORDERED: PREGABALIN 100 MG CAPSULE PO SCH (10:00)
[2020-09-07] MEDS ORDERED: ALBUTEROL SO4 HFA INHALER IH SCH (10:00)
[2020-09-07] MEDS: RAMIPRIL 2.5 MG CAPSULE PO SCH (10:06)
[2020-09-07] MEDS: PREGABALIN 100 MG CAPSULE PO SCH ×2 (10:07→21:50)
[2020-09-07] MEDS: ENOXAPARIN NA (PORCINE) 40 MG/0.4 ML DISP.SYRIN SQ SCH (10:08)
[2020-09-07] MEDS: PANTOPRAZOLE 40 MG TABLET PO SCH (10:08)
[2020-09-07] MEDS: metoPROLOL SUCCINATE 25 MG TAB.SR.24H (FP) PO SCH (10:08)
[2020-09-07 10:22] LABS: ALBUMIN 3.2 g/dl (3.4-5.0); BLOOD UREA NITROGEN 4.4 mg/dL (7-18); CALCIUM 8.1 mg/dL (8.5-10.1); MAGNESIUM 2.1 mg/dL (1.8-2.4)
[2020-09-07 10:25] LABS: CREATININE 0.7 mg/dL (0.55-1.3)
[2020-09-07 10:26] LABS: PHOSPHOROUS 3.1 mg/dL (2.5-4.9)
[2020-09-07 10:27] LABS: BILIRUBIN,TOTAL 0.6 mg/dL (0.2-1); TOT PROT 6.1 g/dl (6.4-8.2)
[2020-09-07] MEDS: CEFTRIAXONE 1 GM in DEXTROSE 5%-WATER - 50 ML IVPB SCH (10:40)
[2020-09-07] MEDS ORDERED: PT OWN MED DRAWER 7, Y5N ONE (12:15)
[2020-09-07] MEDS: FLUTICASONE/SALMETEROL 100 MCG/50 MCG DISKUS IH SCH (14:52)
[2020-09-07] MEDS: PRASUGREL HCL 5 MG TAB PO SCH (14:52)
[2020-09-07] MEDS: TIOTROPIUM BROMIDE 2.5 MCG (SPIRIVA) RESPIMAT INHALER IH SCH (14:52)
[2020-09-07] MEDS: MINERAL OIL/PETROLAT/WATER TOPICAL CREAM 113 GM JAR TP SCH (15:42)
[2020-09-07] MEDS: ROSUVASTATIN CA 10 MG TABLET (FP) PO SCH (21:50)
[2020-09-07] MEDS: MONTELUKAST NA 10 MG TABLET PO SCH (21:50)
[2020-09-07] MEDS: ACETAMINOPHEN 325 MG TABLET (FP) PO PRN (23:11)
[2020-09-08] MEDS: LACTATED RINGERS SOLUTION 1,000 ML IV SCH (03:23)
[2020-09-08 07:55] LABS: HEMATOCRIT 40.8 % (35.4-49); HEMOGLOBIN 13.9 GM/dL (11.7-16.9); MCH 26.7 pg (25.7-33.7); MCHC 34.1 g/dl (32.0-35.9); MEAN CELL VOLUME 78.5 fl (80-96); MEAN PLT VOLUME 7.8 fl (7.5-11.1); PLATELET COUNT 260 K/MM3 (134-434); RDW 16.2 % (11.9-15.9); WHITE BLOOD COUNT 10.5 K/mm3 (4.0-10.0)
[2020-09-08 08:25] LABS: POTASSIUM 4.2 mmol/L (3.5-5.1)
[2020-09-08 08:52] LABS: CALCIUM 8.3 mg/dL (8.5-10.1)
[2020-09-08 08:53] LABS: BLOOD UREA NITROGEN 7.1 mg/dL (7-18); MAGNESIUM 2.3 mg/dL (1.8-2.4)
[2020-09-08 08:56] LABS: CREATININE 0.8 mg/dL (0.55-1.3)
[2020-09-08 08:57] LABS: PHOSPHOROUS 4.1 mg/dL (2.5-4.9)
[2020-09-08] MEDS ORDERED: PT OWN MED DRAWER 7, Y5N ONE (10:10)
[2020-09-08] MEDS ORDERED: cefTRIAXone SODIUM 1 GM VIAL ONE (10:11)
[2020-09-08] MEDS ORDERED: DEXTROSE 5%-WATER - 50 ML IVPB ONE (10:11)
[2020-09-08] MEDS: CEFTRIAXONE 1 GM in DEXTROSE 5%-WATER - 50 ML IVPB SCH (10:52)
[2020-09-08] MEDS: RAMIPRIL 2.5 MG CAPSULE PO SCH (10:53)
[2020-09-08] MEDS: PANTOPRAZOLE 40 MG TABLET PO SCH (10:56)
[2020-09-08] MEDS: FLUTICASONE/SALMETEROL 100 MCG/50 MCG DISKUS IH SCH (11:00)
[2020-09-08] MEDS: ENOXAPARIN NA (PORCINE) 40 MG/0.4 ML DISP.SYRIN SQ SCH (11:01)
[2020-09-08] MEDS: PRASUGREL HCL 5 MG TAB PO SCH (11:01)
[2020-09-08] MEDS: PREGABALIN 100 MG CAPSULE PO SCH ×2 (11:01→21:19)
[2020-09-08] MEDS: MINERAL OIL/PETROLAT/WATER TOPICAL CREAM 113 GM JAR TP SCH (11:01)
[2020-09-08] MEDS: TIOTROPIUM BROMIDE 2.5 MCG (SPIRIVA) RESPIMAT INHALER IH SCH (11:02)
[2020-09-08] MEDS: metoPROLOL SUCCINATE 25 MG TAB.SR.24H (FP) PO SCH (11:02)
[2020-09-08] MEDS: ROSUVASTATIN CA 10 MG TABLET (FP) PO SCH (21:19)
[2020-09-08] MEDS: MONTELUKAST NA 10 MG TABLET PO SCH (21:20)
[2020-09-09 10:29] LABS: HEMATOCRIT 46.2 % (35.4-49); MCH 25.9 pg (25.7-33.7); MCHC 32.5 g/dl (32.0-35.9); MEAN CELL VOLUME 79.7 fl (80-96); MEAN PLT VOLUME 8.6 fl (7.5-11.1); PLATELET COUNT 303 K/MM3 (134-434); RDW 15.8 % (11.9-15.9); WHITE BLOOD COUNT 12.5 K/mm3 (4.0-10.0)
[2020-09-09] MEDS ORDERED: cefTRIAXone SODIUM 1 GM VIAL ONE (10:47)
[2020-09-09] MEDS ORDERED: DEXTROSE 5%-WATER - 50 ML IVPB ONE (10:47)
[2020-09-09] MEDS ORDERED: PT OWN MED DRAWER 7, Y5N ONE (10:47)
[2020-09-09] MEDS: PANTOPRAZOLE 40 MG TABLET PO SCH (10:49)
[2020-09-09] MEDS: PREGABALIN 100 MG CAPSULE PO SCH ×2 (10:49→21:23)
[2020-09-09] MEDS: CEFTRIAXONE 1 GM in DEXTROSE 5%-WATER - 50 ML IVPB SCH (10:49)
[2020-09-09] MEDS: ENOXAPARIN NA (PORCINE) 40 MG/0.4 ML DISP.SYRIN SQ SCH (10:49)
[2020-09-09] MEDS: metoPROLOL SUCCINATE 25 MG TAB.SR.24H (FP) PO SCH (10:50)
[2020-09-09] MEDS: TIOTROPIUM BROMIDE 2.5 MCG (SPIRIVA) RESPIMAT INHALER IH SCH (10:50)
[2020-09-09] MEDS: FLUTICASONE/SALMETEROL 100 MCG/50 MCG DISKUS IH SCH (10:50)
[2020-09-09] MEDS: ASPIRIN 81 MG CHEWABLE TABLETS PO SCH (10:50)
[2020-09-09] MEDS: RAMIPRIL 2.5 MG CAPSULE PO SCH (10:50)
[2020-09-09] MEDS: MINERAL OIL/PETROLAT/WATER TOPICAL CREAM 113 GM JAR TP SCH (10:51)
[2020-09-09] MEDS: PRASUGREL HCL 5 MG TAB PO SCH (10:51)
[2020-09-09 11:16] LABS: CALCIUM 8.7 mg/dL (8.5-10.1)
[2020-09-09 11:17] LABS: BLOOD UREA NITROGEN 5.9 mg/dL (7-18); MAGNESIUM 2.3 mg/dL (1.8-2.4)
[2020-09-09 11:18] LABS: ALBUMIN 3.7 g/dl (3.4-5.0)
[2020-09-09 11:19] LABS: BILIRUBIN,TOTAL 0.6 mg/dL (0.2-1)
[2020-09-09 11:20] LABS: CREATININE 0.8 mg/dL (0.55-1.3); PHOSPHOROUS 3.9 mg/dL (2.5-4.9); POTASSIUM 4.7 mmol/L (3.5-5.1)
[2020-09-09] MEDS: MONTELUKAST NA 10 MG TABLET PO SCH (21:23)
[2020-09-09] MEDS: ROSUVASTATIN CA 10 MG TABLET (FP) PO SCH (21:23)
[2020-09-10] MEDS ORDERED: PT OWN MED DRAWER 7, Y5N ONE ×2 (09:05→09:30)
[2020-09-10] MEDS ORDERED: cefTRIAXone SODIUM 1 GM VIAL ONE (09:30)
[2020-09-10] MEDS ORDERED: DEXTROSE 5%-WATER - 50 ML IVPB ONE (09:31)
[2020-09-10] MEDS: DOCUSATE SODIUM 100 MG CAPSULE (FP) PO SCH ×2 (09:35→21:10)
[2020-09-10] MEDS: RAMIPRIL 2.5 MG CAPSULE PO SCH (09:35)
[2020-09-10] MEDS: PRASUGREL HCL 5 MG TAB PO SCH (09:36)
[2020-09-10] MEDS: FLUTICASONE/SALMETEROL 100 MCG/50 MCG DISKUS IH SCH (09:36)
[2020-09-10] MEDS: MINERAL OIL/PETROLAT/WATER TOPICAL CREAM 113 GM JAR TP SCH (09:36)
[2020-09-10] MEDS: ENOXAPARIN NA (PORCINE) 40 MG/0.4 ML DISP.SYRIN SQ SCH (09:36)
[2020-09-10] MEDS: PREGABALIN 100 MG CAPSULE PO SCH ×2 (09:37→21:10)
[2020-09-10] MEDS: CEFTRIAXONE 1 GM in DEXTROSE 5%-WATER - 50 ML IVPB SCH (09:37)
[2020-09-10] MEDS: metoPROLOL SUCCINATE 25 MG TAB.SR.24H (FP) PO SCH (09:37)
[2020-09-10] MEDS: POLYETHYLENE GLYCOL 3350 119 GM BTL PO SCH ×2 (09:37→21:10)
[2020-09-10] MEDS: PANTOPRAZOLE 40 MG TABLET PO SCH (09:37)
[2020-09-10 10:12] LABS: HEMATOCRIT 46.9 % (35.4-49); HEMOGLOBIN 15.5 GM/dL (11.7-16.9); MCH 26.2 pg (25.7-33.7); MCHC 33.1 g/dl (32.0-35.9); MEAN CELL VOLUME 79.3 fl (80-96); PLATELET COUNT 317 K/MM3 (134-434); RBC 5.92 M/mm3 (4.00-5.60); RDW 15.6 % (11.9-15.9)
[2020-09-10 11:00] LABS: BLOOD UREA NITROGEN 9.2 mg/dL (7-18)
[2020-09-10 11:03] LABS: CREATININE 0.8 mg/dL (0.55-1.3)
[2020-09-10] MEDS: TIOTROPIUM BROMIDE 2.5 MCG (SPIRIVA) RESPIMAT INHALER IH SCH (11:17)
[2020-09-10] MEDS: MONTELUKAST NA 10 MG TABLET PO SCH (21:10)
[2020-09-10] MEDS: ROSUVASTATIN CA 10 MG TABLET (FP) PO SCH (21:10)
[2020-09-11 08:27] LABS: HEMATOCRIT 43.4 % (35.4-49); HEMOGLOBIN 14.4 GM/dL (11.7-16.9); MCH 26.1 pg (25.7-33.7); MCHC 33.1 g/dl (32.0-35.9); MEAN CELL VOLUME 79.1 fl (80-96); MEAN PLT VOLUME 8.3 fl (7.5-11.1); PLATELET COUNT 271 K/MM3 (134-434); RBC 5.49 M/mm3 (4.00-5.60); RDW 15.4 % (11.9-15.9); WHITE BLOOD COUNT 14.6 K/mm3 (4.0-10.0)
[2020-09-11 09:07] LABS: POTASSIUM 4.4 mmol/L (3.5-5.1)
[2020-09-11 09:14] LABS: BLOOD UREA NITROGEN 9.6 mg/dL (7-18)
[2020-09-11 09:16] LABS: CALCIUM 8.8 mg/dL (8.5-10.1)
[2020-09-11 09:17] LABS: CREATININE 0.7 mg/dL (0.55-1.3)
[2020-09-11] MEDS ORDERED: DEXTROSE 5%-WATER - 50 ML IVPB ONE (09:40)
[2020-09-11] MEDS ORDERED: cefTRIAXone SODIUM 1 GM VIAL ONE (09:40)
[2020-09-11] MEDS ORDERED: PT OWN MED DRAWER 7, Y5N ONE (09:40)
[2020-09-11] MEDS: CEFTRIAXONE 1 GM in DEXTROSE 5%-WATER - 50 ML IVPB SCH (09:45)
[2020-09-11] MEDS: ENOXAPARIN NA (PORCINE) 40 MG/0.4 ML DISP.SYRIN SQ SCH (09:45)
[2020-09-11] MEDS: ASPIRIN 81 MG CHEWABLE TABLETS PO SCH (09:46)
[2020-09-11] MEDS: ACETAMINOPHEN 325 MG TABLET (FP) PO PRN (09:46)
[2020-09-11] MEDS: PANTOPRAZOLE 40 MG TABLET PO SCH (09:46)
[2020-09-11] MEDS: PREGABALIN 100 MG CAPSULE PO SCH ×2 (09:46→22:12)
[2020-09-11] MEDS: metoPROLOL SUCCINATE 25 MG TAB.SR.24H (FP) PO SCH (09:46)
[2020-09-11] MEDS: RAMIPRIL 2.5 MG CAPSULE PO SCH (09:46)
[2020-09-11] MEDS: TIOTROPIUM BROMIDE 2.5 MCG (SPIRIVA) RESPIMAT INHALER IH SCH (09:47)
[2020-09-11] MEDS: FLUTICASONE/SALMETEROL 100 MCG/50 MCG DISKUS IH SCH (09:47)
[2020-09-11] MEDS: DOCUSATE SODIUM 100 MG CAPSULE (FP) PO SCH ×2 (09:48→22:15)
[2020-09-11] MEDS: MINERAL OIL/PETROLAT/WATER TOPICAL CREAM 113 GM JAR TP SCH (09:48)
[2020-09-11] MEDS: PRASUGREL HCL 5 MG TAB PO SCH (09:48)
[2020-09-11] MEDS: POLYETHYLENE GLYCOL 3350 119 GM BTL PO SCH ×2 (09:48→22:11)
[2020-09-11] MEDS: ROSUVASTATIN CA 10 MG TABLET (FP) PO SCH (22:11)
[2020-09-11] MEDS: MONTELUKAST NA 10 MG TABLET PO SCH (22:12)
[2020-09-12 09:06] LABS: HEMATOCRIT 43.7 % (35.4-49); HEMOGLOBIN 14.4 GM/dL (11.7-16.9); MCHC 32.9 g/dl (32.0-35.9); MEAN CELL VOLUME 78.9 fl (80-96); MEAN PLT VOLUME 8.3 fl (7.5-11.1); PLATELET COUNT 299 K/MM3 (134-434); RBC 5.54 M/mm3 (4.00-5.60); RDW 15.4 % (11.9-15.9); WHITE BLOOD COUNT 16.4 K/mm3 (4.0-10.0)
[2020-09-12] MEDS ORDERED: DEXTROSE 5%-WATER - 50 ML IVPB ONE (09:06)
[2020-09-12] MEDS ORDERED: PT OWN MED DRAWER 7, Y5N ONE (09:06)
[2020-09-12] MEDS ORDERED: cefTRIAXone SODIUM 1 GM VIAL ONE (09:06)
[2020-09-12] MEDS: PANTOPRAZOLE 40 MG TABLET PO SCH (09:29)
[2020-09-12] MEDS: PREGABALIN 100 MG CAPSULE PO SCH ×2 (09:29→22:01)
[2020-09-12] MEDS: RAMIPRIL 2.5 MG CAPSULE PO SCH (09:29)
[2020-09-12] MEDS: metoPROLOL SUCCINATE 25 MG TAB.SR.24H (FP) PO SCH (09:30)
[2020-09-12] MEDS: DOCUSATE SODIUM 100 MG CAPSULE (FP) PO SCH ×2 (09:30→22:00)
[2020-09-12] MEDS: FLUTICASONE/SALMETEROL 100 MCG/50 MCG DISKUS IH SCH (09:30)
[2020-09-12] MEDS: MINERAL OIL/PETROLAT/WATER TOPICAL CREAM 113 GM JAR TP SCH (09:30)
[2020-09-12] MEDS: CEFTRIAXONE 1 GM in DEXTROSE 5%-WATER - 50 ML IVPB SCH (09:31)
[2020-09-12] MEDS: POLYETHYLENE GLYCOL 3350 119 GM BTL PO SCH ×2 (09:31→22:01)
[2020-09-12] MEDS: PRASUGREL HCL 5 MG TAB PO SCH (09:31)
[2020-09-12] MEDS: TIOTROPIUM BROMIDE 2.5 MCG (SPIRIVA) RESPIMAT INHALER IH SCH (09:31)
[2020-09-12 09:48] LABS: POTASSIUM 4.4 mmol/L (3.5-5.1)
[2020-09-12 10:14] LABS: CALCIUM 8.4 mg/dL (8.5-10.1)
[2020-09-12 10:15] LABS: BLOOD UREA NITROGEN 10.8 mg/dL (7-18)
[2020-09-12 10:18] LABS: CREATININE 0.7 mg/dL (0.55-1.3)
[2020-09-12] MEDS ORDERED: LIDOCAINE HCL 2% (20ML MULTI-DOSE VIAL) ONE (11:28)
[2020-09-12] MEDS ORDERED: ONDANSETRON 4 MG/2 ML VIAL IVPUSH PRN ×2 (11:31→13:39)
[2020-09-12] MEDS ORDERED: SODIUM CHLORIDE 0.9% P/F 10 ML VIAL IJ ONE (11:43)
[2020-09-12] MEDS ORDERED: MIDAZOLAM HCL 2 MG/2 ML SINGLE DOSE VIAL ONE (11:44)
[2020-09-12] MEDS ORDERED: LIDOCAINE HCL 2% (50ML VIAL) INF ONE (12:03)
[2020-09-12] MEDS ORDERED: ALBUTEROL SO4 HFA INHALER IH PRN (13:39)
[2020-09-12] MEDS ORDERED: MORPHINE SULFATE 2 MG/ML VIAL IVPUSH ONE (19:43)
[2020-09-12] MEDS: NEOMYCIN/POLYMYX/HC OPHTHALMIC SUSPENSION 7.5 ML BOTTLE OS SCH (22:01)
[2020-09-12] MEDS: ROSUVASTATIN CA 10 MG TABLET (FP) PO SCH (22:01)
[2020-09-12] MEDS: NYSTATIN POWDER 100,000 UNITS/GM - 15 GM TOPICAL POWDER TP SCH (22:01)
[2020-09-12] MEDS: MONTELUKAST NA 10 MG TABLET PO SCH (22:01)
[2020-09-13] MEDS: NEOMYCIN/POLYMYX/HC OPHTHALMIC SUSPENSION 7.5 ML BOTTLE OS SCH ×5 (05:15→21:55)
[2020-09-13] MEDS: NYSTATIN POWDER 100,000 UNITS/GM - 15 GM TOPICAL POWDER TP SCH ×3 (05:15→21:58)
[2020-09-13 09:14] LABS: BASO % 0.3 % (0-2.0); EOS % 1.6 % (0-4.5); HEMOGLOBIN 13.9 GM/dL (11.7-16.9); LYMPH % 7.1 % (8-40); MCHC 33.1 g/dl (32.0-35.9); MEAN CELL VOLUME 78.6 fl (80-96); MEAN PLT VOLUME 8.3 fl (7.5-11.1); MONO % 6.9 % (3.8-10.2); NEUT % 84.1 % (42.8-82.8); PLATELET COUNT 275 K/MM3 (134-434); RBC 5.34 M/mm3 (4.00-5.60); RDW 15.3 % (11.9-15.9); WHITE BLOOD COUNT 18.5 K/mm3 (4.0-10.0)
[2020-09-13] MEDS ORDERED: DEXTROSE 5%-WATER - 50 ML IVPB ONE (09:20)
[2020-09-13] MEDS ORDERED: cefTRIAXone SODIUM 1 GM VIAL ONE (09:20)
[2020-09-13] MEDS ORDERED: PT OWN MED DRAWER 7, Y5N ONE (09:20)
[2020-09-13 09:28] LABS: POTASSIUM 4.3 mmol/L (3.5-5.1)
[2020-09-13] MEDS: PREGABALIN 100 MG CAPSULE PO SCH ×2 (09:33→21:48)
[2020-09-13] MEDS: PANTOPRAZOLE 40 MG TABLET PO SCH (09:33)
[2020-09-13] MEDS: CEFTRIAXONE 1 GM in DEXTROSE 5%-WATER - 50 ML IVPB SCH (09:33)
[2020-09-13] MEDS: DOCUSATE SODIUM 100 MG CAPSULE (FP) PO SCH ×2 (09:33→21:48)
[2020-09-13] MEDS: RAMIPRIL 2.5 MG CAPSULE PO SCH (09:34)
[2020-09-13] MEDS: ASPIRIN 81 MG CHEWABLE TABLETS PO SCH (09:34)
[2020-09-13] MEDS: PRASUGREL HCL 5 MG TAB PO SCH (09:34)
[2020-09-13] MEDS: ENOXAPARIN NA (PORCINE) 40 MG/0.4 ML DISP.SYRIN SQ SCH (09:34)
[2020-09-13] MEDS: metoPROLOL SUCCINATE 25 MG TAB.SR.24H (FP) PO SCH (09:34)
[2020-09-13] MEDS: MINERAL OIL/PETROLAT/WATER TOPICAL CREAM 113 GM JAR TP SCH (09:36)
[2020-09-13] MEDS: FLUTICASONE/SALMETEROL 100 MCG/50 MCG DISKUS IH SCH (09:36)
[2020-09-13 09:37] LABS: ALBUMIN 3.4 g/dl (3.4-5.0); BLOOD UREA NITROGEN 9.1 mg/dL (7-18); CALCIUM 8.3 mg/dL (8.5-10.1)
[2020-09-13] MEDS: POLYETHYLENE GLYCOL 3350 119 GM BTL PO SCH ×2 (09:37→21:50)
[2020-09-13] MEDS: TIOTROPIUM BROMIDE 2.5 MCG (SPIRIVA) RESPIMAT INHALER IH SCH (09:37)
[2020-09-13 09:38] LABS: MAGNESIUM 2.4 mg/dL (1.8-2.4)
[2020-09-13 09:40] LABS: CREATININE 0.8 mg/dL (0.55-1.3)
[2020-09-13 09:41] LABS: BILIRUBIN,TOTAL 1.1 mg/dL (0.2-1)
[2020-09-13 09:42] LABS: TOT PROT 6.5 g/dl (6.4-8.2)
[2020-09-13] MEDS ORDERED: diphenhydrAMINE HCL 25 MG CAPSULE (FP) PO ONE (15:55)
[2020-09-13] MEDS: CIPROFLOXACIN 0.3% EYE DROPS 5 ML BOTTLE OU SCH (17:20)
[2020-09-13] MEDS: TETRAHYDROZOLINE HCL EYE DROPS OU SCH ×2 (17:21→21:55)
[2020-09-13] MEDS: KETOROLAC TROMETHAMINE 0.5% EYE DROP 1 DROP DROPS OU SCH ×3 (17:21→21:55)
[2020-09-13] MEDS: ROSUVASTATIN CA 10 MG TABLET (FP) PO SCH (21:48)
[2020-09-13] MEDS: MONTELUKAST NA 10 MG TABLET PO SCH (21:49)
[2020-09-13] MEDS: ACETAMINOPHEN 325 MG TABLET (FP) PO PRN (21:49)
[2020-09-14] MEDS: NEOMYCIN/POLYMYX/HC OPHTHALMIC SUSPENSION 7.5 ML BOTTLE OS SCH ×2 (06:34→09:49)
[2020-09-14] MEDS: NYSTATIN POWDER 100,000 UNITS/GM - 15 GM TOPICAL POWDER TP SCH ×3 (06:35→21:19)
[2020-09-14] MEDS ORDERED: cefTRIAXone SODIUM 1 GM VIAL ONE (08:48)
[2020-09-14] MEDS ORDERED: DEXTROSE 5%-WATER - 50 ML IVPB ONE (08:48)
[2020-09-14 09:12] LABS: BASO % 0.6 % (0-2.0); EOS % 2.5 % (0-4.5); HEMATOCRIT 41.7 % (35.4-49); HEMOGLOBIN 13.6 GM/dL (11.7-16.9); MCHC 32.7 g/dl (32.0-35.9); MEAN CELL VOLUME 79.4 fl (80-96); MEAN PLT VOLUME 8.2 fl (7.5-11.1); MONO % 8.3 % (3.8-10.2); NEUT % 79.6 % (42.8-82.8); PLATELET COUNT 245 K/MM3 (134-434); RBC 5.25 M/mm3 (4.00-5.60); RDW 15.1 % (11.9-15.9); WHITE BLOOD COUNT 14.5 K/mm3 (4.0-10.0)
[2020-09-14 09:40] LABS: POTASSIUM 4.6 mmol/L (3.5-5.1)
[2020-09-14] MEDS: DOCUSATE SODIUM 100 MG CAPSULE (FP) PO SCH ×2 (09:47→21:17)
[2020-09-14] MEDS: PREGABALIN 100 MG CAPSULE PO SCH ×2 (09:47→21:17)
[2020-09-14] MEDS: PANTOPRAZOLE 40 MG TABLET PO SCH (09:47)
[2020-09-14] MEDS: RAMIPRIL 2.5 MG CAPSULE PO SCH (09:48)
[2020-09-14] MEDS: FLUTICASONE/SALMETEROL 100 MCG/50 MCG DISKUS IH SCH (09:49)
[2020-09-14] MEDS: TETRAHYDROZOLINE HCL EYE DROPS OU SCH ×2 (09:50→21:20)
[2020-09-14] MEDS: KETOROLAC TROMETHAMINE 0.5% EYE DROP 1 DROP DROPS OU SCH ×4 (09:50→21:20)
[2020-09-14] MEDS: ENOXAPARIN NA (PORCINE) 40 MG/0.4 ML DISP.SYRIN SQ SCH (09:52)
[2020-09-14] MEDS: POLYETHYLENE GLYCOL 3350 119 GM BTL PO SCH ×2 (09:52→21:19)
[2020-09-14] MEDS: CEFTRIAXONE 1 GM in DEXTROSE 5%-WATER - 50 ML IVPB SCH (09:53)
[2020-09-14] MEDS: TIOTROPIUM BROMIDE 2.5 MCG (SPIRIVA) RESPIMAT INHALER IH SCH (09:53)
[2020-09-14] MEDS: MINERAL OIL/PETROLAT/WATER TOPICAL CREAM 113 GM JAR TP SCH (09:55)
[2020-09-14] MEDS: PRASUGREL HCL 5 MG TAB PO SCH (09:55)
[2020-09-14 10:02] LABS: BLOOD UREA NITROGEN 10.5 mg/dL (7-18); MAGNESIUM 2.4 mg/dL (1.8-2.4)
[2020-09-14 10:04] LABS: BILIRUBIN,TOTAL 0.7 mg/dL (0.2-1); CALCIUM 8.1 mg/dL (8.5-10.1); CREATININE 0.7 mg/dL (0.55-1.3); PHOSPHOROUS 3.4 mg/dL (2.5-4.9); TOT PROT 6.5 g/dl (6.4-8.2)
[2020-09-14 10:05] LABS: ALBUMIN 3.4 g/dl (3.4-5.0)
[2020-09-14] MEDS: metoPROLOL SUCCINATE 25 MG TAB.SR.24H (FP) PO SCH (10:14)
[2020-09-14] MEDS: CIPROFLOXACIN 0.3% EYE DROPS 5 ML BOTTLE OU SCH (12:03)
[2020-09-14] MEDS: HYDROCORTISONE 1% TOPICAL CREAM 30 GM TUBE TP SCH ×2 (14:28→19:07)
[2020-09-14] MEDS: ACETAMINOPHEN 325 MG TABLET (FP) PO PRN (19:58)
[2020-09-14] MEDS: ROSUVASTATIN CA 10 MG TABLET (FP) PO SCH (21:17)
[2020-09-14] MEDS: MONTELUKAST NA 10 MG TABLET PO SCH (21:18)
[2020-09-14] MEDS: TRIAMCINOLONE ACET 0.1% CREAM 15 GM TUBE TP SCH (21:19)
[2020-09-15] MEDS: NYSTATIN POWDER 100,000 UNITS/GM - 15 GM TOPICAL POWDER TP SCH ×3 (05:49→21:41)
[2020-09-15 08:02] LABS: BASO % 0.4 % (0-2.0); EOS % 2.4 % (0-4.5); HEMOGLOBIN 13.9 GM/dL (11.7-16.9); LYMPH % 7.8 % (8-40); MCH 25.9 pg (25.7-33.7); MCHC 33.1 g/dl (32.0-35.9); MEAN CELL VOLUME 78.4 fl (80-96); MEAN PLT VOLUME 8.3 fl (7.5-11.1); MONO % 6.5 % (3.8-10.2); NEUT % 82.9 % (42.8-82.8); PLATELET COUNT 281 K/MM3 (134-434); RBC 5.35 M/mm3 (4.00-5.60); RDW 15.6 % (11.9-15.9); WHITE BLOOD COUNT 15.3 K/mm3 (4.0-10.0)
[2020-09-15 08:20] LABS: POTASSIUM 4.5 mmol/L (3.5-5.1)
[2020-09-15 08:25] LABS: CALCIUM 8.3 mg/dL (8.5-10.1)
[2020-09-15 08:26] LABS: ALBUMIN 3.4 g/dl (3.4-5.0); BLOOD UREA NITROGEN 12.7 mg/dL (7-18); MAGNESIUM 2.4 mg/dL (1.8-2.4)
[2020-09-15 08:28] LABS: CREATININE 0.8 mg/dL (0.55-1.3)
[2020-09-15 08:29] LABS: PHOSPHOROUS 3.7 mg/dL (2.5-4.9)
[2020-09-15 08:30] LABS: BILIRUBIN,TOTAL 0.7 mg/dL (0.2-1); TOT PROT 6.8 g/dl (6.4-8.2)
[2020-09-15] MEDS ORDERED: cefTRIAXone SODIUM 1 GM VIAL ONE (10:35)
[2020-09-15] MEDS ORDERED: PT OWN MED DRAWER 7, Y5N ONE (10:35)
[2020-09-15] MEDS ORDERED: DEXTROSE 5%-WATER - 50 ML IVPB ONE (10:36)
[2020-09-15] MEDS ORDERED: diphenhydrAMINE HCL 25 MG CAPSULE (FP) PO PRN (10:53)
[2020-09-15] MEDS: metoPROLOL SUCCINATE 25 MG TAB.SR.24H (FP) PO SCH (11:02)
[2020-09-15] MEDS: PREGABALIN 100 MG CAPSULE PO SCH ×2 (11:02→21:38)
[2020-09-15] MEDS: DOCUSATE SODIUM 100 MG CAPSULE (FP) PO SCH ×2 (11:02→21:39)
[2020-09-15] MEDS: PANTOPRAZOLE 40 MG TABLET PO SCH (11:03)
[2020-09-15] MEDS: CIPROFLOXACIN 0.3% EYE DROPS 5 ML BOTTLE OU SCH (11:03)
[2020-09-15] MEDS: ASPIRIN 81 MG CHEWABLE TABLETS PO SCH (11:03)
[2020-09-15] MEDS: FLUTICASONE/SALMETEROL 100 MCG/50 MCG DISKUS IH SCH (11:03)
[2020-09-15] MEDS: RAMIPRIL 2.5 MG CAPSULE PO SCH (11:03)
[2020-09-15] MEDS: PRASUGREL HCL 5 MG TAB PO SCH (11:03)
[2020-09-15] MEDS: ENOXAPARIN NA (PORCINE) 40 MG/0.4 ML DISP.SYRIN SQ SCH (11:05)
[2020-09-15] MEDS: POLYETHYLENE GLYCOL 3350 119 GM BTL PO SCH ×2 (11:05→21:40)
[2020-09-15] MEDS: KETOROLAC TROMETHAMINE 0.5% EYE DROP 1 DROP DROPS OU SCH ×4 (11:05→21:40)
[2020-09-15] MEDS: CEFTRIAXONE 1 GM in DEXTROSE 5%-WATER - 50 ML IVPB SCH (11:06)
[2020-09-15] MEDS: TETRAHYDROZOLINE HCL EYE DROPS OU SCH ×2 (11:06→21:40)
[2020-09-15] MEDS: TIOTROPIUM BROMIDE 2.5 MCG (SPIRIVA) RESPIMAT INHALER IH SCH (11:06)
[2020-09-15] MEDS: MINERAL OIL/PETROLAT/WATER TOPICAL CREAM 113 GM JAR TP SCH (12:37)
[2020-09-15] MEDS: TRIAMCINOLONE ACET 0.1% CREAM 15 GM TUBE TP SCH ×2 (12:37→21:40)
[2020-09-15] MEDS ORDERED: predniSONE 20 MG TABLET (UD) PO ONE (14:10)
[2020-09-15] MEDS: LORATADINE 10 MG TABLET PO SCH (15:49)
[2020-09-15] MEDS: ROSUVASTATIN CA 10 MG TABLET (FP) PO SCH (21:39)
[2020-09-15] MEDS: MONTELUKAST NA 10 MG TABLET PO SCH (21:39)
[2020-09-16] MEDS: NYSTATIN POWDER 100,000 UNITS/GM - 15 GM TOPICAL POWDER TP SCH ×3 (05:17→21:27)
[2020-09-16 08:09] LABS: BASO % 0.7 % (0-2.0); EOS % 2.8 % (0-4.5); HEMATOCRIT 39.8 % (35.4-49); HEMOGLOBIN 13.2 GM/dL (11.7-16.9); MCH 25.9 pg (25.7-33.7); MCHC 33.1 g/dl (32.0-35.9); MEAN CELL VOLUME 78.4 fl (80-96); MEAN PLT VOLUME 8.2 fl (7.5-11.1); MONO % 6.4 % (3.8-10.2); NEUT % 82.1 % (42.8-82.8); PLATELET COUNT 247 K/MM3 (134-434); RBC 5.08 M/mm3 (4.00-5.60); RDW 15.2 % (11.9-15.9); WHITE BLOOD COUNT 13.5 K/mm3 (4.0-10.0)
[2020-09-16 08:18] LABS: POTASSIUM 4.3 mmol/L (3.5-5.1)
[2020-09-16 08:25] LABS: ALBUMIN 3.1 g/dl (3.4-5.0); BLOOD UREA NITROGEN 10.7 mg/dL (7-18); MAGNESIUM 2.2 mg/dL (1.8-2.4)
[2020-09-16 08:27] LABS: CREATININE 0.8 mg/dL (0.55-1.3); PHOSPHOROUS 3.7 mg/dL (2.5-4.9)
[2020-09-16 08:29] LABS: BILIRUBIN,TOTAL 0.6 mg/dL (0.2-1)
[2020-09-16 08:30] LABS: TOT PROT 6.2 g/dl (6.4-8.2)
[2020-09-16] MEDS ORDERED: PT OWN MED DRAWER 7, Y5N ONE (09:41)
[2020-09-16] MEDS: FLUTICASONE/SALMETEROL 100 MCG/50 MCG DISKUS IH SCH (09:51)
[2020-09-16] MEDS: ERTAPENEM SODIUM 1 GM in SODIUM CHLORIDE 50 ML IVPB SCH (09:51)
[2020-09-16] MEDS: PREGABALIN 100 MG CAPSULE PO SCH ×2 (09:52→21:25)
[2020-09-16] MEDS: metoPROLOL SUCCINATE 25 MG TAB.SR.24H (FP) PO SCH (09:53)
[2020-09-16] MEDS: PANTOPRAZOLE 40 MG TABLET PO SCH (09:53)
[2020-09-16] MEDS: DOCUSATE SODIUM 100 MG CAPSULE (FP) PO SCH ×2 (09:54→21:25)
[2020-09-16] MEDS: RAMIPRIL 2.5 MG CAPSULE PO SCH (09:54)
[2020-09-16] MEDS: LORATADINE 10 MG TABLET PO SCH (09:54)
[2020-09-16] MEDS: ENOXAPARIN NA (PORCINE) 40 MG/0.4 ML DISP.SYRIN SQ SCH (09:55)
[2020-09-16] MEDS: KETOROLAC TROMETHAMINE 0.5% EYE DROP 1 DROP DROPS OU SCH ×4 (09:57→21:27)
[2020-09-16] MEDS: TIOTROPIUM BROMIDE 2.5 MCG (SPIRIVA) RESPIMAT INHALER IH SCH (09:58)
[2020-09-16] MEDS: TETRAHYDROZOLINE HCL EYE DROPS OU SCH ×2 (09:58→21:28)
[2020-09-16] MEDS: PRASUGREL HCL 5 MG TAB PO SCH (09:59)
[2020-09-16] MEDS: POLYETHYLENE GLYCOL 3350 119 GM BTL PO SCH ×2 (09:59→21:27)
[2020-09-16] MEDS ORDERED: predniSONE 20 MG TABLET (UD) PO SCH (10:00)
[2020-09-16] MEDS: TRIAMCINOLONE ACET 0.1% CREAM 15 GM TUBE TP SCH ×2 (10:01→21:28)
[2020-09-16] MEDS: MINERAL OIL/PETROLAT/WATER TOPICAL CREAM 113 GM JAR TP SCH (10:01)
[2020-09-16 18:09] LABS: HEP B CORE AB, TOT Negative (Negative)
[2020-09-16] MEDS ORDERED: diphenhydrAMINE HCL 25 MG CAPSULE (FP) PO PRN (18:34)
[2020-09-16] MEDS: MONTELUKAST NA 10 MG TABLET PO SCH (21:26)
[2020-09-16] MEDS: ROSUVASTATIN CA 10 MG TABLET (FP) PO SCH (21:26)
[2020-09-17] MEDS: NYSTATIN POWDER 100,000 UNITS/GM - 15 GM TOPICAL POWDER TP SCH ×3 (05:26→21:16)
[2020-09-17] MEDS ORDERED: PT OWN MED DRAWER 7, Y5N ONE (09:27)
[2020-09-17] MEDS: PREGABALIN 100 MG CAPSULE PO SCH ×2 (09:40→21:15)
[2020-09-17] MEDS: ENOXAPARIN NA (PORCINE) 40 MG/0.4 ML DISP.SYRIN SQ SCH (09:40)
[2020-09-17] MEDS: ERTAPENEM SODIUM 1 GM in SODIUM CHLORIDE 50 ML IVPB SCH (09:40)
[2020-09-17] MEDS: metoPROLOL SUCCINATE 25 MG TAB.SR.24H (FP) PO SCH (09:41)
[2020-09-17] MEDS: POLYETHYLENE GLYCOL 3350 119 GM BTL PO SCH ×2 (09:41→21:16)
[2020-09-17] MEDS: DOCUSATE SODIUM 100 MG CAPSULE (FP) PO SCH ×2 (09:41→21:17)
[2020-09-17] MEDS: PANTOPRAZOLE 40 MG TABLET PO SCH (09:41)
[2020-09-17] MEDS: LORATADINE 10 MG TABLET PO SCH (09:41)
[2020-09-17] MEDS: RAMIPRIL 2.5 MG CAPSULE PO SCH (09:41)
[2020-09-17] MEDS: PRASUGREL HCL 5 MG TAB PO SCH (09:41)
[2020-09-17] MEDS: MINERAL OIL/PETROLAT/WATER TOPICAL CREAM 113 GM JAR TP SCH (09:41)
[2020-09-17] MEDS: ASPIRIN 81 MG CHEWABLE TABLETS PO SCH (09:41)
[2020-09-17] MEDS: TRIAMCINOLONE ACET 0.1% CREAM 15 GM TUBE TP SCH ×2 (09:44→21:17)
[2020-09-17] MEDS: FLUTICASONE/SALMETEROL 100 MCG/50 MCG DISKUS IH SCH (09:44)
[2020-09-17] MEDS: TIOTROPIUM BROMIDE 2.5 MCG (SPIRIVA) RESPIMAT INHALER IH SCH (09:44)
[2020-09-17] MEDS: TETRAHYDROZOLINE HCL EYE DROPS OU SCH ×2 (09:45→21:17)
[2020-09-17] MEDS: KETOROLAC TROMETHAMINE 0.5% EYE DROP 1 DROP DROPS OU SCH ×4 (09:45→21:17)
[2020-09-17] MEDS: MINERAL OIL/PET HY-PHL TOPICAL OINTMENT 454 GM JAR TP PRN (09:57)
[2020-09-17] MEDS ORDERED: diphenhydrAMINE HCL 25 MG CAPSULE (FP) PO PRN (12:22)
[2020-09-17 12:34] LABS: HEMATOCRIT 39.8 % (35.4-49); HEMOGLOBIN 13.1 GM/dL (11.7-16.9); MCH 25.8 pg (25.7-33.7); MCHC 32.8 g/dl (32.0-35.9); MEAN CELL VOLUME 78.4 fl (80-96); MEAN PLT VOLUME 8.1 fl (7.5-11.1); PLATELET COUNT 237 K/MM3 (134-434); RBC 5.07 M/mm3 (4.00-5.60); RDW 15.4 % (11.9-15.9); WHITE BLOOD COUNT 13.3 K/mm3 (4.0-10.0)
[2020-09-17 13:00] LABS: POTASSIUM 4.7 mmol/L (3.5-5.1)
[2020-09-17 13:03] LABS: ALBUMIN 3.1 g/dl (3.4-5.0)
[2020-09-17 13:04] LABS: CALCIUM 7.9 mg/dL (8.5-10.1)
[2020-09-17 13:06] LABS: CREATININE 0.9 mg/dL (0.55-1.3)
[2020-09-17 13:08] LABS: TOT PROT 6.2 g/dl (6.4-8.2)
[2020-09-17 13:11] LABS: BILIRUBIN,TOTAL 1.3 mg/dL (0.2-1)
[2020-09-17] MEDS: ROSUVASTATIN CA 10 MG TABLET (FP) PO SCH (21:14)
[2020-09-17] MEDS: MONTELUKAST NA 10 MG TABLET PO SCH (21:15)
[2020-09-18] MEDS: NYSTATIN POWDER 100,000 UNITS/GM - 15 GM TOPICAL POWDER TP SCH ×3 (06:25→21:28)
[2020-09-18 08:39] LABS: HEMATOCRIT 38.9 % (35.4-49); HEMOGLOBIN 12.9 GM/dL (11.7-16.9); MCH 25.8 pg (25.7-33.7); MCHC 33.1 g/dl (32.0-35.9); MEAN CELL VOLUME 77.8 fl (80-96); MEAN PLT VOLUME 8.2 fl (7.5-11.1); PLATELET COUNT 242 K/MM3 (134-434); WHITE BLOOD COUNT 15.2 K/mm3 (4.0-10.0)
[2020-09-18 09:01] LABS: POTASSIUM 4.9 mmol/L (3.5-5.1)
[2020-09-18 09:12] LABS: BLOOD UREA NITROGEN 13.8 mg/dL (7-18)
[2020-09-18] MEDS ORDERED: PT OWN MED DRAWER 7, Y5N ONE ×2 (10:38→21:21)
[2020-09-18] MEDS: PANTOPRAZOLE 40 MG TABLET PO SCH (10:49)
[2020-09-18] MEDS: DOCUSATE SODIUM 100 MG CAPSULE (FP) PO SCH ×2 (10:49→21:27)
[2020-09-18] MEDS: POLYETHYLENE GLYCOL 3350 119 GM BTL PO SCH ×3 (10:49→21:38)
[2020-09-18] MEDS: PREGABALIN 100 MG CAPSULE PO SCH ×2 (10:49→21:26)
[2020-09-18] MEDS: LORATADINE 10 MG TABLET PO SCH (10:49)
[2020-09-18] MEDS: metoPROLOL SUCCINATE 25 MG TAB.SR.24H (FP) PO SCH (10:49)
[2020-09-18] MEDS: RAMIPRIL 2.5 MG CAPSULE PO SCH (10:50)
[2020-09-18] MEDS: PRASUGREL HCL 5 MG TAB PO SCH (10:50)
[2020-09-18] MEDS: FLUTICASONE/SALMETEROL 100 MCG/50 MCG DISKUS IH SCH (10:50)
[2020-09-18] MEDS: KETOROLAC TROMETHAMINE 0.5% EYE DROP 1 DROP DROPS OU SCH ×4 (10:50→21:27)
[2020-09-18] MEDS: TIOTROPIUM BROMIDE 2.5 MCG (SPIRIVA) RESPIMAT INHALER IH SCH (10:50)
[2020-09-18] MEDS: TETRAHYDROZOLINE HCL EYE DROPS OU SCH ×2 (10:50→21:29)
[2020-09-18] MEDS: TRIAMCINOLONE ACET 0.1% CREAM 15 GM TUBE TP SCH ×2 (12:15→21:27)
[2020-09-18] MEDS: ERTAPENEM SODIUM 1 GM in SODIUM CHLORIDE 50 ML IVPB SCH (12:22)
[2020-09-18] MEDS: MINERAL OIL/PETROLAT/WATER TOPICAL CREAM 113 GM JAR TP SCH (13:00)
[2020-09-18] MEDS ORDERED: predniSONE 20 MG TABLET (UD) PO ONE ×2 (18:41→21:30)
[2020-09-18] MEDS: MONTELUKAST NA 10 MG TABLET PO SCH (21:26)
[2020-09-18] MEDS: ROSUVASTATIN CA 10 MG TABLET (FP) PO SCH (21:27)
[2020-09-18] MEDS: ACETAMINOPHEN 325 MG TABLET (FP) PO PRN (21:33)
[2020-09-19] MEDS: NYSTATIN POWDER 100,000 UNITS/GM - 15 GM TOPICAL POWDER TP SCH ×3 (05:48→21:14)
[2020-09-19 08:51] LABS: HEMATOCRIT 41.8 % (35.4-49); HEMOGLOBIN 13.8 GM/dL (11.7-16.9); LYMPH % 3.9 % (8-40); MCH 25.8 pg (25.7-33.7); MEAN CELL VOLUME 78.3 fl (80-96); MEAN PLT VOLUME 8.2 fl (7.5-11.1); MONO % 1.6 % (3.8-10.2); NEUT % 94.5 % (42.8-82.8); PLATELET COUNT 279 K/MM3 (134-434); RBC 5.33 M/mm3 (4.00-5.60); RDW 14.9 % (11.9-15.9); WHITE BLOOD COUNT 16.5 K/mm3 (4.0-10.0)
[2020-09-19] MEDS ORDERED: PT OWN MED DRAWER 7, Y5N ONE (09:05)
[2020-09-19] MEDS: DOCUSATE SODIUM 100 MG CAPSULE (FP) PO SCH ×2 (09:09→21:13)
[2020-09-19] MEDS: LORATADINE 10 MG TABLET PO SCH (09:09)
[2020-09-19] MEDS: ASPIRIN 81 MG CHEWABLE TABLETS PO SCH (09:09)
[2020-09-19] MEDS: RAMIPRIL 2.5 MG CAPSULE PO SCH (09:09)
[2020-09-19 09:10] LABS: POTASSIUM 5.7 mmol/L (3.5-5.1)
[2020-09-19] MEDS: PREGABALIN 100 MG CAPSULE PO SCH ×2 (09:10→21:13)
[2020-09-19] MEDS: PRASUGREL HCL 5 MG TAB PO SCH (09:10)
[2020-09-19] MEDS: metoPROLOL SUCCINATE 25 MG TAB.SR.24H (FP) PO SCH (09:11)
[2020-09-19] MEDS: PANTOPRAZOLE 40 MG TABLET PO SCH (09:11)
[2020-09-19] MEDS: ERTAPENEM SODIUM 1 GM in SODIUM CHLORIDE 50 ML IVPB SCH (09:11)
[2020-09-19] MEDS: ENOXAPARIN NA (PORCINE) 40 MG/0.4 ML DISP.SYRIN SQ SCH (09:14)
[2020-09-19] MEDS: KETOROLAC TROMETHAMINE 0.5% EYE DROP 1 DROP DROPS OU SCH ×4 (09:15→21:14)
[2020-09-19] MEDS: TETRAHYDROZOLINE HCL EYE DROPS OU SCH ×2 (09:15→21:14)
[2020-09-19] MEDS: MINERAL OIL/PETROLAT/WATER TOPICAL CREAM 113 GM JAR TP SCH (09:15)
[2020-09-19] MEDS: TIOTROPIUM BROMIDE 2.5 MCG (SPIRIVA) RESPIMAT INHALER IH SCH (09:15)
[2020-09-19] MEDS: TRIAMCINOLONE ACET 0.1% CREAM 15 GM TUBE TP SCH ×2 (09:15→21:14)
[2020-09-19 09:16] LABS: BLOOD UREA NITROGEN 13.7 mg/dL (7-18)
[2020-09-19] MEDS: FLUTICASONE/SALMETEROL 100 MCG/50 MCG DISKUS IH SCH (09:16)
[2020-09-19 09:17] LABS: ALBUMIN 3.1 g/dl (3.4-5.0); CREATININE 0.9 mg/dL (0.55-1.3); MAGNESIUM 2.6 mg/dL (1.8-2.4)
[2020-09-19 09:18] LABS: PHOSPHOROUS 3.7 mg/dL (2.5-4.9)
[2020-09-19 09:20] LABS: TOT PROT 6.4 g/dl (6.4-8.2)
[2020-09-19] MEDS: POLYETHYLENE GLYCOL 3350 119 GM BTL PO SCH ×2 (09:29→21:14)
[2020-09-19 09:32] LABS: BILIRUBIN,TOTAL 0.4 mg/dL (0.2-1)
[2020-09-19 12:15] VITALS: BMI 32.1
[2020-09-19] MEDS: predniSONE 20 MG TABLET (UD) PO SCH (12:25)
[2020-09-19 12:39] LABS: ANISOCYTOSIS 0; MACROCYTOSIS 0; PLATELET ESTIMATE NORMAL
[2020-09-19 16:08] LABS: ATYPICAL pANCA <1:20 titer (Neg:<1:20); C-ANCA <1:20 titer (Neg:<1:20)
[2020-09-19 20:17] LABS: POTASSIUM 5.3 mmol/L (3.5-5.1)
[2020-09-19 20:19] LABS: CALCIUM 8.2 mg/dL (8.5-10.1)
[2020-09-19 20:20] LABS: ALBUMIN 3.3 g/dl (3.4-5.0); BLOOD UREA NITROGEN 20.6 mg/dL (7-18)
[2020-09-19 20:23] LABS: CREATININE 1.2 mg/dL (0.55-1.3)
[2020-09-19 20:26] LABS: BILIRUBIN,TOTAL 0.4 mg/dL (0.2-1); TOT PROT 6.9 g/dl (6.4-8.2)
[2020-09-19] MEDS: ROSUVASTATIN CA 10 MG TABLET (FP) PO SCH (21:13)
[2020-09-19] MEDS: MONTELUKAST NA 10 MG TABLET PO SCH (21:13)
[2020-09-19] MEDS: ACETAMINOPHEN 325 MG TABLET (FP) PO PRN (23:27)
[2020-09-20] MEDS: NYSTATIN POWDER 100,000 UNITS/GM - 15 GM TOPICAL POWDER TP SCH ×3 (06:34→21:03)
[2020-09-20 09:31] LABS: BASO % 0.1 % (0-2.0); EOS % 0.1 % (0-4.5); HEMATOCRIT 38.6 % (35.4-49); HEMOGLOBIN 12.7 GM/dL (11.7-16.9); LYMPH % 7.3 % (8-40); MCH 25.8 pg (25.7-33.7); MEAN PLT VOLUME 8.6 fl (7.5-11.1); MONO % 3.6 % (3.8-10.2); NEUT % 88.9 % (42.8-82.8); PLATELET COUNT 273 K/MM3 (134-434); RBC 4.95 M/mm3 (4.00-5.60); WHITE BLOOD COUNT 18.7 K/mm3 (4.0-10.0)
[2020-09-20] MEDS ORDERED: MULTIVITAMINS (DAILY MVI) TABLET (FP) PO SCH (10:00)
[2020-09-20 10:12] LABS: ALBUMIN 3.1 g/dl (3.4-5.0)
[2020-09-20 10:14] LABS: CALCIUM 8.2 mg/dL (8.5-10.1)
[2020-09-20 10:15] LABS: BILIRUBIN,TOTAL 0.3 mg/dL (0.2-1); PHOSPHOROUS 4.8 mg/dL (2.5-4.9); TOT PROT 6.5 g/dl (6.4-8.2)
[2020-09-20 10:16] LABS: MAGNESIUM 2.7 mg/dL (1.8-2.4)
[2020-09-20] MEDS ORDERED: PT OWN MED DRAWER 7, Y5N ONE ×3 (11:41→20:38)
[2020-09-20] MEDS ORDERED: SODIUM ZIRCONIUM CYCLOSILICATE (LOKELMA) 10 GM PACKET PO ONE (12:00)
[2020-09-20] MEDS ORDERED: DEXTROSE 50%-WATER 25 GM/50 ML DISP.SYRIN IVPUSH ONE ×2 (12:00→12:45)
[2020-09-20] MEDS ORDERED: INSULIN REGULAR HUMAN 100 UNITS/ML *VIAL IVPUSH ONE (12:00)
[2020-09-20] MEDS: AMINO ACIDS/PROTEIN HYDROLYS 30 ML LIQUID.PKT PO SCH (12:16)
[2020-09-20] MEDS: ENOXAPARIN NA (PORCINE) 40 MG/0.4 ML DISP.SYRIN SQ SCH (12:16)
[2020-09-20] MEDS: RAMIPRIL 2.5 MG CAPSULE PO SCH (12:17)
[2020-09-20] MEDS: metoPROLOL SUCCINATE 25 MG TAB.SR.24H (FP) PO SCH (12:17)
[2020-09-20] MEDS: PANTOPRAZOLE 40 MG TABLET PO SCH (12:17)
[2020-09-20] MEDS: LORATADINE 10 MG TABLET PO SCH (12:17)
[2020-09-20] MEDS: predniSONE 20 MG TABLET (UD) PO SCH ×2 (12:17→21:02)
[2020-09-20] MEDS: DOCUSATE SODIUM 100 MG CAPSULE (FP) PO SCH ×2 (12:18→21:02)
[2020-09-20] MEDS: PREGABALIN 100 MG CAPSULE PO SCH ×2 (12:18→21:03)
[2020-09-20] MEDS: TIOTROPIUM BROMIDE 2.5 MCG (SPIRIVA) RESPIMAT INHALER IH SCH (12:21)
[2020-09-20] MEDS: PRASUGREL HCL 5 MG TAB PO SCH (12:22)
[2020-09-20] MEDS: FLUTICASONE/SALMETEROL 100 MCG/50 MCG DISKUS IH SCH (12:22)
[2020-09-20] MEDS: POLYETHYLENE GLYCOL 3350 119 GM BTL PO SCH ×2 (12:22→21:05)
[2020-09-20] MEDS: KETOROLAC TROMETHAMINE 0.5% EYE DROP 1 DROP DROPS OU SCH ×4 (12:23→21:03)
[2020-09-20] MEDS: MINERAL OIL/PET HY-PHL TOPICAL OINTMENT 454 GM JAR TP PRN (12:24)
[2020-09-20] MEDS: TETRAHYDROZOLINE HCL EYE DROPS OU SCH ×2 (12:25→21:04)
[2020-09-20] MEDS ORDERED: DEXTROSE 50%-WATER 25 GM/50 ML DISP.SYRIN ONE (12:39)
[2020-09-20] MEDS: MINERAL OIL/PETROLAT/WATER TOPICAL CREAM 113 GM JAR TP SCH (12:46)
[2020-09-20] MEDS: TRIAMCINOLONE ACET 0.1% CREAM 15 GM TUBE TP SCH ×2 (12:48→21:02)
[2020-09-20 15:15] LABS: POTASSIUM 4.4 mmol/L (3.5-5.1)
[2020-09-20 15:16] LABS: CALCIUM 8.6 mg/dL (8.5-10.1)
[2020-09-20 15:17] LABS: BLOOD UREA NITROGEN 23.9 mg/dL (7-18)
[2020-09-20 15:20] LABS: CREATININE 1.1 mg/dL (0.55-1.3)
[2020-09-20] MEDS: ROSUVASTATIN CA 10 MG TABLET (FP) PO SCH (21:02)
[2020-09-20] MEDS: MONTELUKAST NA 10 MG TABLET PO SCH (21:03)
[2020-09-20] MEDS ORDERED: SODIUM ZIRCONIUM CYCLOSILICATE (LOKELMA) 5 GM PACKET PO ONE (21:53)
[2020-09-21] MEDS: NYSTATIN POWDER 100,000 UNITS/GM - 15 GM TOPICAL POWDER TP SCH ×2 (05:48→14:31)
[2020-09-21 08:27] LABS: HEMATOCRIT 39.1 % (35.4-49); HEMOGLOBIN 12.7 GM/dL (11.7-16.9); MCH 25.7 pg (25.7-33.7); MCHC 32.5 g/dl (32.0-35.9); MEAN PLT VOLUME 8.8 fl (7.5-11.1); PLATELET COUNT 294 K/MM3 (134-434); RBC 4.95 M/mm3 (4.00-5.60); RDW 15.2 % (11.9-15.9); WHITE BLOOD COUNT 21.1 K/mm3 (4.0-10.0)
[2020-09-21 08:44] LABS: POTASSIUM 5.2 mmol/L (3.5-5.1)
[2020-09-21 08:52] LABS: BLOOD UREA NITROGEN 28.2 mg/dL (7-18); CALCIUM 8.5 mg/dL (8.5-10.1)
[2020-09-21 08:54] LABS: URIC ACID 8.6 mg/dL (2.6-7.2)
[2020-09-21] MEDS ORDERED: PT OWN MED DRAWER 7, Y5N ONE (10:03)
[2020-09-21] MEDS: predniSONE 20 MG TABLET (UD) PO SCH (10:06)
[2020-09-21] MEDS: ASPIRIN 81 MG CHEWABLE TABLETS PO SCH (10:06)
[2020-09-21] MEDS: metoPROLOL SUCCINATE 25 MG TAB.SR.24H (FP) PO SCH (10:06)
[2020-09-21] MEDS: RAMIPRIL 2.5 MG CAPSULE PO SCH (10:06)
[2020-09-21] MEDS: PANTOPRAZOLE 40 MG TABLET PO SCH (10:06)
[2020-09-21] MEDS: PREGABALIN 100 MG CAPSULE PO SCH (10:06)
[2020-09-21] MEDS: LORATADINE 10 MG TABLET PO SCH (10:06)
[2020-09-21] MEDS: TRIAMCINOLONE ACET 0.1% CREAM 15 GM TUBE TP SCH (10:07)
[2020-09-21] MEDS: FLUTICASONE/SALMETEROL 100 MCG/50 MCG DISKUS IH SCH (10:07)
[2020-09-21] MEDS: AMINO ACIDS/PROTEIN HYDROLYS 30 ML LIQUID.PKT PO SCH (10:07)
[2020-09-21] MEDS: DOCUSATE SODIUM 100 MG CAPSULE (FP) PO SCH (10:08)
[2020-09-21] MEDS: MINERAL OIL/PETROLAT/WATER TOPICAL CREAM 113 GM JAR TP SCH (10:08)
[2020-09-21] MEDS: PRASUGREL HCL 5 MG TAB PO SCH (10:08)
[2020-09-21] MEDS: POLYETHYLENE GLYCOL 3350 119 GM BTL PO SCH (10:09)
[2020-09-21] MEDS: KETOROLAC TROMETHAMINE 0.5% EYE DROP 1 DROP DROPS OU SCH ×3 (10:09→17:12)
[2020-09-21] MEDS: ENOXAPARIN NA (PORCINE) 40 MG/0.4 ML DISP.SYRIN SQ SCH (10:09)
[2020-09-21] MEDS: TIOTROPIUM BROMIDE 2.5 MCG (SPIRIVA) RESPIMAT INHALER IH SCH (10:09)
[2020-09-21] MEDS: TETRAHYDROZOLINE HCL EYE DROPS OU SCH (10:10)
[2020-09-21 14:22] VITALS: BP 131/80; PULSE 75; TEMP 97.7
== END 2020-09-21 18:21 | disposition home or self-care (01) | DRG 854 ==
LOC: JER 15:56 → JERBED 20:07 → J8W 23:09
PROVIDERS: ADMIT Hospitalist; ATTEND Internal Medicine
PROC: 0JBQ0ZZ Excision of Right Foot Subcutaneous Tissue and Fascia, Open Approach (ICD-10-PCS; principal; 2020-09-06)
PROC: 0J9Q0ZX Drainage of Right Foot Subcutaneous Tissue and Fascia, Open Approach, Diagnostic (ICD-10-PCS; 2020-09-06)
PROC: 0Y6M0ZB Detachment at Right Foot, Partial 2nd Ray, Open Approach (ICD-10-PCS; 2020-09-12)
PROC: 0YB Anatomical Regions, Lower Extremities, Excision (ICD-10-PCS; 2020-09-18)
DX: A41.89 Other specified sepsis (principal); L02.611 Cutaneous abscess of right foot; I50.22 Chronic systolic (congestive) heart failure; E87.2 Acidosis; M86.171 Other acute osteomyelitis, right ankle and foot; I25.10 Atherosclerotic heart disease of native coronary artery without angina pectoris; I10 Essential (primary) hypertension; E78.5 Hyperlipidemia, unspecified; I27.20 Pulmonary hypertension, unspecified; J44.9 Chronic obstructive pulmonary disease, unspecified; M54.9 Dorsalgia, unspecified; E11.42 Type 2 diabetes mellitus with diabetic polyneuropathy; R00.0 Tachycardia, unspecified; D72.829 Elevated white blood cell count, unspecified; M48.00 Spinal stenosis, site unspecified; L03.031 Cellulitis of right toe; K21.9 Gastro-esophageal reflux disease without esophagitis; G62.9 Polyneuropathy, unspecified; I11.0 Hypertensive heart disease with heart failure; I77.6 Arteritis, unspecified; H10.9 Unspecified conjunctivitis; R21 Rash and other nonspecific skin eruption; E87.5 Hyperkalemia
CPT/HCPCS: 36415; 71045-TC-FY; 73630-TC-RT-FY; 73718-TC-RT; 80048; 80053; 81003; 82595; 83036; 83520; 83605; 83735; 84100; 84484; 84550; 85025; 85027; 85610; 85651; 85730; 86140; 86160; 86162; 86256; 86704; 86706; 86707; 86708; 86709; 87040; 87070; 87075; 87086; 87186; 87205; 87340; 87902; 88305-TC; 88311-TC; 93005; 93010; 93971-TC; 94760; 99285-25; C9803; U0003

== ENCOUNTER 2022-02-04 04:43 | Day surgery (SDC) | payer BC ==
[2022-01-30 07:50] VITALS: BMI 32.8
[2022-02-04 11:44] VITALS: TEMP 98
[2022-02-04] MEDS ORDERED: ACETAMINOPHEN INJECTION 100 ML IVPB ONE (12:05)
[2022-02-04] MEDS ORDERED: ACETAMINOPHEN 1000 MG/100 ML BAG IVPB ONE (12:15)
[2022-02-04 13:19] VITALS: BP 129/74; PULSE 67
== END 2022-02-04 13:53 | disposition home or self-care (01) ==
LOC: JASU-ENDO 04:43
PROVIDERS: ATTEND Internal Medicine Gastroenterology
PROC: 0DBL8ZX Excision of Transverse Colon, Via Natural or Artificial Opening Endoscopic, Diagnostic (ICD-10-PCS; 2022-02-04)
PROC: 0DBH8ZX Excision of Cecum, Via Natural or Artificial Opening Endoscopic, Diagnostic (ICD-10-PCS; principal; 2022-02-04 11:00)
DX: Z12.11 Encounter for screening for malignant neoplasm of colon (principal); Z86.010 Personal history of colon polyps; D12.0 Benign neoplasm of cecum; D12.3 Benign neoplasm of transverse colon; K57.30 Diverticulosis of large intestine without perforation or abscess without bleeding
CPT/HCPCS: 88305-TC

== ENCOUNTER 2022-04-10 15:35 | Observation (INO) | payer BC, OTHER ==
[2022-04-10 15:59] VITALS: BMI 32.8
[2022-04-10] MEDS ORDERED: morphine CARPU-JECT 4 MG/1 ML DISP.SYRIN IVPUSH ONE (17:10)
[2022-04-10] MEDS ORDERED: morphine SULFATE 4 MG/ML VIAL ONE (17:21)
[2022-04-10 17:49] LABS: BASO % 0.5 % (0-2.0); EOS % 2.1 % (0-4.5); HEMATOCRIT 42.3 % (35.4-49); HEMOGLOBIN 13.9 GM/dL (11.7-16.9); LYMPH % 11.3 % (8-40); MCH 25.1 pg (25.7-33.7); MCHC 32.7 g/dl (32.0-35.9); MEAN CELL VOLUME 76.6 fl (80-96); MEAN PLT VOLUME 7.7 fl (7.5-11.1); MONO % 5.7 % (3.8-10.2); NEUT % 80.4 % (42.8-82.8); PLATELET COUNT 330 10^3/uL (134-434); RBC 5.53 M/mm3 (4.00-5.60); RDW 16.8 % (11.9-15.9); WHITE BLOOD COUNT 11.9 K/mm3 (4.0-10.0)
[2022-04-10] MEDS ORDERED: ASPIRIN 325 MG ENTERIC COATED TABLET (FP) PO ONE (17:52)
[2022-04-10 18:09] LABS: INR 1.09 (0.83-1.09); PROTHROMBIN TIME (PATIENT) 12.5 SEC (9.7-13.0)
[2022-04-10 18:22] LABS: ALBUMIN 3.8 g/dl (3.4-5.0); BLOOD UREA NITROGEN 7.2 mg/dL (7-18); CALCIUM 8.4 mg/dL (8.5-10.1)
[2022-04-10 18:25] LABS: CREATININE 0.8 mg/dL (0.55-1.3)
[2022-04-10 18:27] LABS: BILIRUBIN,TOTAL 0.3 mg/dL (0.2-1); TOT PROT 6.8 g/dl (6.4-8.2)
[2022-04-10 18:30] LABS: N-TERMINAL BNP 78.8 pg/ml (5-125)
[2022-04-10] MEDS ORDERED: ASPIRIN 325 MG TABLET ONE (18:36)
[2022-04-11 01:37] LABS: PH,URINE 5.5 (5.0-8.0); URINE APPEARANCE CLEAR; URINE BILIRUBIN NEGATIVE (NEGATIVE); URINE COLOR YELLOW; URINE GLUCOSE (UA) NEGATIVE (NEGATIVE); URINE KETONE NEGATIVE (NEGATIVE); URINE LEUK ESTERASE NEGATIVE (NEGATIVE); URINE NITRITE NEGATIVE (NEGATIVE); URINE PROTEIN NEGATIVE (NEGATIVE); URINE UROBILINOGEN 0.2 mg/dL (0.2-1.0)
[2022-04-11] MEDS: ACETAMINOPHEN 1000 MG/100 ML BAG IVPB PRN ×2 (01:51→11:11)
[2022-04-11 07:27] LABS: BASO % 0.4 % (0-2.0); EOS % 2.5 % (0-4.5); HEMATOCRIT 42.3 % (35.4-49); HEMOGLOBIN 13.6 GM/dL (11.7-16.9); LYMPH % 11.2 % (8-40); MCH 24.6 pg (25.7-33.7); MCHC 32.2 g/dl (32.0-35.9); MEAN CELL VOLUME 76.6 fl (80-96); MEAN PLT VOLUME 7.7 fl (7.5-11.1); MONO % 4.8 % (3.8-10.2); NEUT % 81.1 % (42.8-82.8); PLATELET COUNT 296 10^3/uL (134-434); RBC 5.52 M/mm3 (4.00-5.60); RDW 16.5 % (11.9-15.9); WHITE BLOOD COUNT 12.2 K/mm3 (4.0-10.0)
[2022-04-11 08:01] LABS: CREATININE 0.8 mg/dL (0.55-1.3); PHOSPHOROUS 3.8 mg/dL (2.5-4.9)
[2022-04-11 08:02] LABS: ALBUMIN 3.4 g/dl (3.4-5.0); BLOOD UREA NITROGEN 9.4 mg/dL (7-18); CALCIUM 8.1 mg/dL (8.5-10.1)
[2022-04-11 08:03] LABS: MAGNESIUM 1.9 mg/dL (1.8-2.4)
[2022-04-11 08:04] LABS: TOT PROT 6.3 g/dl (6.4-8.2)
[2022-04-11 08:05] LABS: CHOLESTEROL 111 mg/dL (50-200); TRIGLYCERIDES 131 mg/dL (0-150)
[2022-04-11 08:06] LABS: LDL CHOLESTEROL (ONLY SJRH) 63 mg/dL (5-100)
[2022-04-11 08:08] LABS: HDL CHOLESTEROL 27 mg/dL (40-60)
[2022-04-11 08:09] LABS: BILIRUBIN,TOTAL 0.6 mg/dL (0.2-1)
[2022-04-11] MEDS ORDERED: RAMIPRIL 5 MG CAPSULE ONE (09:24)
[2022-04-11] MEDS: RAMIPRIL 5 MG CAPSULE PO SCH (09:50)
[2022-04-11] MEDS: metoPROLOL SUCCINATE 25 MG TAB.SR.24H (FP) PO SCH (09:52)
[2022-04-11] MEDS ORDERED: ACETAMINOPHEN INJECTION 100 ML IVPB ONE (11:01)
[2022-04-11] MEDS: PRASUGREL HCL 5 MG TAB PO SCH (14:48)
[2022-04-11] MEDS ORDERED: DULoxetine HCL 30 MG CAPSULE.DR PO ONE (19:49)
[2022-04-11] MEDS: DULoxetine HCL 30 MG CAPSULE.DR PO SCH (19:59)
[2022-04-11] MEDS: PREGABALIN 100 MG CAPSULE PO SCH ×2 (19:59→23:02)
[2022-04-11] MEDS: ALPRAZolam 0.25 MG TABLET PO SCH (23:02)
[2022-04-11] MEDS ORDERED: ALPRAZolam 0.25 MG TABLET ONE (23:50)
[2022-04-11] MEDS ORDERED: PREGABALIN 100 MG CAPSULE ONE (23:50)
[2022-04-12 08:16] LABS: BASO % 0.4 % (0-2.0); HEMATOCRIT 43.5 % (35.4-49); HEMOGLOBIN 14.4 GM/dL (11.7-16.9); LYMPH % 9.5 % (8-40); MCH 25.5 pg (25.7-33.7); MEAN CELL VOLUME 77.3 fl (80-96); MEAN PLT VOLUME 7.4 fl (7.5-11.1); MONO % 5.3 % (3.8-10.2); NEUT % 82.8 % (42.8-82.8); PLATELET COUNT 263 10^3/uL (134-434); RBC 5.63 M/mm3 (4.00-5.60); RDW 16.7 % (11.9-15.9)
[2022-04-12 08:38] LABS: CALCIUM 8.2 mg/dL (8.5-10.1)
[2022-04-12 08:39] LABS: ALBUMIN 3.7 g/dl (3.4-5.0); BLOOD UREA NITROGEN 9.4 mg/dL (7-18); MAGNESIUM 2.2 mg/dL (1.8-2.4)
[2022-04-12 08:42] LABS: CREATININE 0.7 mg/dL (0.55-1.3); PHOSPHOROUS 4.2 mg/dL (2.5-4.9)
[2022-04-12 08:43] LABS: BILIRUBIN,TOTAL 0.6 mg/dL (0.2-1); TOT PROT 6.6 g/dl (6.4-8.2)
[2022-04-12] MEDS: PRASUGREL HCL 5 MG TAB PO SCH (09:15)
[2022-04-12] MEDS: DULoxetine HCL 30 MG CAPSULE.DR PO SCH (09:15)
[2022-04-12] MEDS: ALPRAZolam 0.25 MG TABLET PO SCH ×2 (09:15→21:35)
[2022-04-12] MEDS: metoPROLOL SUCCINATE 25 MG TAB.SR.24H (FP) PO SCH (09:16)
[2022-04-12] MEDS: PREGABALIN 100 MG CAPSULE PO SCH ×2 (09:17→21:35)
[2022-04-12] MEDS: RAMIPRIL 5 MG CAPSULE PO SCH (09:18)
[2022-04-12] MEDS ORDERED: ACETAMINOPHEN 325 MG TABLET (FP) PO ONE (09:43)
[2022-04-12] MEDS ORDERED: ASPIRIN 81 MG CHEWABLE TABLETS PO SCH (10:00)
[2022-04-12] MEDS: FUROSEMIDE 20 MG TABLET (FP) PO SCH (13:18)
[2022-04-12] MEDS: ENOXAPARIN NA (PORCINE) 40 MG/0.4 ML DISP.SYRIN SQ SCH (13:19)
[2022-04-13] MEDS: ENOXAPARIN NA (PORCINE) 40 MG/0.4 ML DISP.SYRIN SQ SCH (09:45)
[2022-04-13] MEDS: ALPRAZolam 0.25 MG TABLET PO SCH (09:45)
[2022-04-13] MEDS: FUROSEMIDE 20 MG TABLET (FP) PO SCH (09:46)
[2022-04-13] MEDS: metoPROLOL SUCCINATE 25 MG TAB.SR.24H (FP) PO SCH (09:46)
[2022-04-13] MEDS: PREGABALIN 100 MG CAPSULE PO SCH (09:46)
[2022-04-13] MEDS: DULoxetine HCL 30 MG CAPSULE.DR PO SCH (09:46)
[2022-04-13] MEDS: RAMIPRIL 5 MG CAPSULE PO SCH (09:46)
[2022-04-13] MEDS: PRASUGREL HCL 5 MG TAB PO SCH (09:46)
[2022-04-13 14:51] VITALS: BP 140/74; PULSE 79; RESP 24; TEMP 97.8
== END 2022-04-13 17:13 | disposition home or self-care (01) ==
LOC: JER 15:35 → JERBED 17:50 → J4W 04-12 02:19
PROVIDERS: ADMIT Internal Medicine; ATTEND Nurse Practitioner Family
PROC: 3E033NZ Introduction of Analgesics, Hypnotics, Sedatives into Peripheral Vein, Percutaneous Approach (ICD-10-PCS; principal; 2022-04-10)
PROC: 3E023GC Introduction of Other Therapeutic Substance into Muscle, Percutaneous Approach (ICD-10-PCS; 2022-04-10)
PROC: 3E033NZ Introduction of Analgesics, Hypnotics, Sedatives into Peripheral Vein, Percutaneous Approach (ICD-10-PCS; 2022-04-10)
DX: I25.10 Atherosclerotic heart disease of native coronary artery without angina pectoris (principal); I11.9 Hypertensive heart disease without heart failure; R61 Generalized hyperhidrosis; R07.9 Chest pain, unspecified; K21.9 Gastro-esophageal reflux disease without esophagitis; J44.9 Chronic obstructive pulmonary disease, unspecified; R07.89 Other chest pain; R60.0 Localized edema; R11.0 Nausea; K75.9 Inflammatory liver disease, unspecified; K29.70 Gastritis, unspecified, without bleeding; N20.0 Calculus of kidney; I25.2 Old myocardial infarction; Z99.81 Dependence on supplemental oxygen; G89.29 Other chronic pain; Z87.891 Personal history of nicotine dependence
CPT/HCPCS: 0241U-QW; 36415; 71046-TC-FY; 71250-TC; 80053; 80061; 81003; 83605; 83690; 83735; 83880; 84100; 84443; 84484; 85025; 85379; 85610; 85730; 93005; 93010; 93306-TC; 93970-TC; 96372; 96374; 96375; 99285-25; G0378

== ENCOUNTER 2022-04-29 04:06 | Day surgery (SDC) | payer BC ==
[2022-04-25 13:56] VITALS: BMI 32.2
[2022-04-29] MEDS ORDERED: ALPRAZolam 0.25 MG TABLET PO PRN (06:54)
[2022-04-29 08:51] VITALS: BP 110/55; PULSE 73; RESP 16; TEMP 97.8
[2022-04-29] MEDS ORDERED: TESTOSTERONE UNDECANOATE PO SCH (10:00)
[2022-04-29] MEDS ORDERED: ASPIRIN 81 MG CHEWABLE TABLETS PO SCH (10:00)
[2022-04-29] MEDS ORDERED: metoPROLOL SUCCINATE 25 MG TAB.SR.24H (FP) PO SCH (10:00)
[2022-04-29] MEDS ORDERED: PREGABALIN 100 MG CAPSULE PO SCH ×2 (10:00→22:00)
[2022-04-29] MEDS ORDERED: NIACIN PO SCH (10:00)
[2022-04-29] MEDS ORDERED: DULoxetine HCL 60 MG CAPSULE.DR PO SCH (10:00)
[2022-04-29] MEDS ORDERED: FLUTICASONE/SALMETEROL 100 MCG/50 MCG DISKUS IH SCH (10:00)
[2022-04-29] MEDS ORDERED: PANTOPRAZOLE 40 MG TABLET PO SCH (10:00)
[2022-04-29] MEDS ORDERED: RAMIPRIL 2.5 MG CAPSULE PO SCH (10:00)
[2022-04-29] MEDS ORDERED: FUROSEMIDE 20 MG TABLET (FP) PO SCH (10:00)
[2022-04-29] MEDS ORDERED: PRASUGREL HCL 5 MG TAB PO SCH (10:00)
[2022-04-29] MEDS ORDERED: MONTELUKAST NA 10 MG TABLET PO SCH (22:00)
[2022-04-29] MEDS ORDERED: ROSUVASTATIN CA 10 MG TABLET PO SCH (22:00)
== END 2022-04-29 11:40 | disposition home or self-care (01) ==
LOC: JASUSAT 04:06
PROVIDERS: ATTEND Orthopaedic Surgery
DX: Z53.9 Procedure and treatment not carried out, unspecified reason (principal)

== ENCOUNTER 2022-05-06 04:04 | Inpatient (IN) | payer BC ==
[2022-05-02 12:37] VITALS: BMI 32.2
[2022-05-06] MEDS ORDERED: BUPIVACAINE HCL/PF 0.5% (5MG/ML) 10 ML VIAL ONE (06:51)
[2022-05-06] MEDS ORDERED: ACETAMINOPHEN INJECTION 100 ML IVPB ONE (06:52)
[2022-05-06] MEDS ORDERED: PROPOFOL 60 ML ONE (07:00)
[2022-05-06] MEDS ORDERED: ONDANSETRON 4 MG/2 ML VIAL ONE (07:09)
[2022-05-06] MEDS ORDERED: MIDAZOLAM HCL 2 MG/2 ML SINGLE DOSE VIAL ONE (07:13)
[2022-05-06] MEDS ORDERED: BUPIVACAINE LIPOSOME/PF (EXPAREL) 266 MG/20 ML VIAL ONE (07:22)
[2022-05-06] MEDS ORDERED: ONDANSETRON 4 MG/2 ML VIAL IVPUSH PRN (07:28)
[2022-05-06] MEDS ORDERED: LACTATED RINGERS SOLUTION 1,000 ML IV SCH (07:30)
[2022-05-06] MEDS ORDERED: ALPRAZolam 0.25 MG TABLET PO PRN (08:00)
[2022-05-06] MEDS ORDERED: ROCURONIUM BROMIDE 50 MG/5 ML SYRINGE ONE (08:29)
[2022-05-06] MEDS ORDERED: ceFAZolin SODIUM 1 GM VIAL ONE (08:34)
[2022-05-06] MEDS ORDERED: PROPOFOL 20 ML ONE (08:37)
[2022-05-06] MEDS ORDERED: LABETALOL HCL 5 MG/1 ML (100MG/20 ML VIAL) ONE (09:08)
[2022-05-06] MEDS ORDERED: NEOSTIGMINE METHYLSULFATE 0.5 MG/ML - 10 ML MDV ONE (09:20)
[2022-05-06] MEDS ORDERED: GLYCOPYRROLATE 0.2 MG/1 ML VIAL ONE ×2 (09:20→09:49)
[2022-05-06] MEDS ORDERED: PHENYLEPHRINE HCL 10 MG/1 ML SINGLE DOSE VIAL ONE (09:36)
[2022-05-06] MEDS ORDERED: DULoxetine HCL 60 MG CAPSULE.DR PO SCH (10:00)
[2022-05-06] MEDS ORDERED: TESTOSTERONE UNDECANOATE PO SCH (10:00)
[2022-05-06] MEDS ORDERED: ceFAZolin 2 GRAM PREMIX BAG IVPB SCH (11:15)
[2022-05-06] MEDS: RAMIPRIL 5 MG CAPSULE PO SCH (12:38)
[2022-05-06] MEDS: ASPIRIN 81 MG CHEWABLE TABLETS PO SCH (12:38)
[2022-05-06] MEDS: FLUTICASONE/SALMETEROL 100 MCG/50 MCG DISKUS IH SCH ×2 (12:38→21:10)
[2022-05-06] MEDS: PRASUGREL HCL 5 MG TAB PO SCH (12:39)
[2022-05-06] MEDS: PREGABALIN 100 MG CAPSULE PO SCH ×2 (12:39→21:10)
[2022-05-06] MEDS: NIACIN 500 MG TABLET PO SCH (12:39)
[2022-05-06] MEDS: FUROSEMIDE 20 MG TABLET (FP) PO SCH (12:39)
[2022-05-06] MEDS: PANTOPRAZOLE 40 MG TABLET PO SCH (12:39)
[2022-05-06] MEDS: metoPROLOL SUCCINATE 25 MG TAB.SR.24H (FP) PO SCH (12:40)
[2022-05-06] MEDS: CEFAZOLIN SODIUM 2 GM in DEXTROSE 5%-WATER 100 ML IVPB SCH ×2 (12:55→21:10)
[2022-05-06] MEDS ORDERED: ALBUTEROL SO4 2.5/IPRATROPIUM 0.5 INH SOL 3 ML VIAL.NEB. NEB ONE (20:57)
[2022-05-06] MEDS: ROSUVASTATIN CA 10 MG TABLET PO SCH (21:10)
[2022-05-06] MEDS: MONTELUKAST NA 10 MG TABLET PO SCH (21:10)
[2022-05-06] MEDS ORDERED: ACETAMINOPHEN 325 MG TABLET (FP) PO PRN (21:39)
[2022-05-07] MEDS ORDERED: ALBUTEROL SO4 2.5/IPRATROPIUM 0.5 INH SOL 3 ML VIAL.NEB. NEB SCH (09:15)
[2022-05-07] MEDS: PANTOPRAZOLE 40 MG TABLET PO SCH (09:56)
[2022-05-07] MEDS: DULoxetine HCL 30 MG CAPSULE.DR PO SCH (09:57)
[2022-05-07] MEDS: FUROSEMIDE 20 MG TABLET (FP) PO SCH (09:57)
[2022-05-07] MEDS: metoPROLOL SUCCINATE 25 MG TAB.SR.24H (FP) PO SCH (09:58)
[2022-05-07] MEDS: PREGABALIN 100 MG CAPSULE PO SCH ×2 (09:58→21:27)
[2022-05-07] MEDS: RAMIPRIL 5 MG CAPSULE PO SCH (09:59)
[2022-05-07] MEDS: PRASUGREL HCL 5 MG TAB PO SCH (09:59)
[2022-05-07] MEDS: NIACIN 500 MG TABLET PO SCH (09:59)
[2022-05-07] MEDS: FLUTICASONE/SALMETEROL 100 MCG/50 MCG DISKUS IH SCH ×2 (10:23→21:29)
[2022-05-07] MEDS ORDERED: ALPRAZolam 0.25 MG TABLET PO ONE (11:40)
[2022-05-07 12:58] LABS: HEMATOCRIT 39.1 % (35.4-49); HEMOGLOBIN 12.7 GM/dL (11.7-16.9); MCH 25.1 pg (25.7-33.7); MCHC 32.6 g/dl (32.0-35.9); MEAN CELL VOLUME 77.1 fl (80-96); MEAN PLT VOLUME 7.7 fl (7.5-11.1); PLATELET COUNT 343 10^3/uL (134-434); RBC 5.07 M/mm3 (4.00-5.60); RDW 17.9 % (11.9-15.9); WHITE BLOOD COUNT 24.5 K/mm3 (4.0-10.0)
[2022-05-07 13:26] LABS: ALBUMIN 3.5 g/dl (3.4-5.0); BLOOD UREA NITROGEN 7.2 mg/dL (7-18); CALCIUM 8.5 mg/dL (8.5-10.1)
[2022-05-07 13:29] LABS: CREATININE 0.8 mg/dL (0.55-1.3)
[2022-05-07 13:31] LABS: TOT PROT 6.6 g/dl (6.4-8.2)
[2022-05-07 14:25] LABS: ANISOCYTOSIS 0; MACROCYTOSIS 0
[2022-05-07] MEDS: ALBUTEROL SO4 2.5/IPRATROPIUM 0.5 INH SOL 3 ML VIAL.NEB. NEB SCH ×2 (14:30→20:40)
[2022-05-07] MEDS ORDERED: SODIUM CHLORIDE 2,803 ML IV ONE (15:07)
[2022-05-07] MEDS ORDERED: CEFTRIAXONE 1,000 MG in DEXTROSE 5%-WATER - 50 ML IVPB ONE (15:31)
[2022-05-07] MEDS ORDERED: SODIUM CHLORIDE 1,000 ML IV SCH (16:00)
[2022-05-07 16:09] LABS: EPI CELLS 1 /uL (0-25.1); HYALINE CASTS 0 /uL (0-3.1); PH,URINE 5.5 (5.0-8.0); URINE APPEARANCE CLEAR; URINE BACTERIA 1 /uL (0-1359); URINE BILIRUBIN NEGATIVE (NEGATIVE); URINE COLOR YELLOW; URINE GLUCOSE (UA) NEGATIVE (NEGATIVE); URINE KETONE NEGATIVE (NEGATIVE); URINE LEUK ESTERASE NEGATIVE (NEGATIVE); URINE NITRITE NEGATIVE (NEGATIVE); URINE PROTEIN NEGATIVE (NEGATIVE); URINE RBC 6 /uL (0-23.9); URINE UROBILINOGEN 0.2 mg/dL (0.2-1.0); URINE WBC 2 /uL (0-25.8)
[2022-05-07] MEDS: CLINDAMYCIN 600MG PREMIX IVPB 600 MG/50 ML BAG IVPB SCH ×2 (16:43→18:41)
[2022-05-07] MEDS ORDERED: AZTREONAM 1 GM in DEXTROSE 5%-WATER - 50 ML IVPB SCH (17:00)
[2022-05-07] MEDS: MONTELUKAST NA 10 MG TABLET PO SCH (21:27)
[2022-05-07] MEDS: ROSUVASTATIN CA 10 MG TABLET PO SCH (21:27)
[2022-05-08] MEDS: CLINDAMYCIN 600MG PREMIX IVPB 600 MG/50 ML BAG IVPB SCH ×3 (00:59→18:24)
[2022-05-08] MEDS: AZTREONAM 1 GM in DEXTROSE 5%-WATER - 50 ML IVPB SCH ×3 (01:49→17:13)
[2022-05-08] MEDS: ALBUTEROL SO4 2.5/IPRATROPIUM 0.5 INH SOL 3 ML VIAL.NEB. NEB SCH ×3 (07:45→20:37)
[2022-05-08 09:01] VITALS: RESP 18
[2022-05-08] MEDS: PANTOPRAZOLE 40 MG TABLET PO SCH (09:16)
[2022-05-08] MEDS: ASPIRIN 81 MG CHEWABLE TABLETS PO SCH (09:16)
[2022-05-08] MEDS: PREGABALIN 100 MG CAPSULE PO SCH ×2 (09:16→21:52)
[2022-05-08] MEDS: metoPROLOL SUCCINATE 25 MG TAB.SR.24H (FP) PO SCH (09:16)
[2022-05-08] MEDS: DULoxetine HCL 30 MG CAPSULE.DR PO SCH (09:16)
[2022-05-08] MEDS: NIACIN 500 MG TABLET PO SCH (09:17)
[2022-05-08] MEDS: PRASUGREL HCL 5 MG TAB PO SCH (09:17)
[2022-05-08] MEDS: RAMIPRIL 5 MG CAPSULE PO SCH (09:17)
[2022-05-08] MEDS: FLUTICASONE/SALMETEROL 100 MCG/50 MCG DISKUS IH SCH ×2 (09:23→21:52)
[2022-05-08 10:16] LABS: HEMATOCRIT 33.6 % (35.4-49); HEMOGLOBIN 10.7 GM/dL (11.7-16.9); MCH 24.7 pg (25.7-33.7); MEAN CELL VOLUME 77.2 fl (80-96); MEAN PLT VOLUME 7.6 fl (7.5-11.1); PLATELET COUNT 285 10^3/uL (134-434); RBC 4.35 M/mm3 (4.00-5.60); WHITE BLOOD COUNT 19.6 K/mm3 (4.0-10.0)
[2022-05-08 10:33] LABS: ALBUMIN 2.9 g/dl (3.4-5.0); CALCIUM 7.8 mg/dL (8.5-10.1)
[2022-05-08 10:36] LABS: CREATININE 0.8 mg/dL (0.55-1.3)
[2022-05-08 10:37] LABS: TOT PROT 5.8 g/dl (6.4-8.2)
[2022-05-08 10:38] LABS: BILIRUBIN,TOTAL 0.6 mg/dL (0.2-1)
[2022-05-08 13:16] LABS: ANISOCYTOSIS 0; MACROCYTOSIS 0
[2022-05-08] MEDS: ROSUVASTATIN CA 10 MG TABLET PO SCH (21:52)
[2022-05-08] MEDS: MONTELUKAST NA 10 MG TABLET PO SCH (21:52)
[2022-05-09] MEDS: AZTREONAM 1 GM in DEXTROSE 5%-WATER - 50 ML IVPB SCH ×2 (01:00→11:30)
[2022-05-09] MEDS: CLINDAMYCIN 600MG PREMIX IVPB 600 MG/50 ML BAG IVPB SCH ×3 (01:32→17:17)
[2022-05-09] MEDS: ALBUTEROL SO4 2.5/IPRATROPIUM 0.5 INH SOL 3 ML VIAL.NEB. NEB SCH ×3 (07:16→20:45)
[2022-05-09 08:58] LABS: BASO % 0.2 % (0-2.0); EOS % 0.1 % (0-4.5); HEMATOCRIT 30.8 % (35.4-49); HEMOGLOBIN 10.1 GM/dL (11.7-16.9); LYMPH % 5.4 % (8-40); MCH 25.7 pg (25.7-33.7); MCHC 32.7 g/dl (32.0-35.9); MEAN CELL VOLUME 78.4 fl (80-96); MEAN PLT VOLUME 7.4 fl (7.5-11.1); NEUT % 88.3 % (42.8-82.8); PLATELET COUNT 304 10^3/uL (134-434); RBC 3.93 M/mm3 (4.00-5.60); RDW 18.1 % (11.9-15.9); WHITE BLOOD COUNT 18.3 K/mm3 (4.0-10.0)
[2022-05-09 09:55] LABS: ALBUMIN 2.8 g/dl (3.4-5.0); MAGNESIUM 2.2 mg/dL (1.8-2.4)
[2022-05-09 09:56] LABS: BLOOD UREA NITROGEN 9.6 mg/dL (7-18)
[2022-05-09 09:59] LABS: CREATININE 0.8 mg/dL (0.55-1.3)
[2022-05-09 10:00] LABS: BILIRUBIN,TOTAL 0.8 mg/dL (0.2-1); TOT PROT 6.1 g/dl (6.4-8.2)
[2022-05-09] MEDS: PANTOPRAZOLE 40 MG TABLET PO SCH (10:17)
[2022-05-09] MEDS: DULoxetine HCL 30 MG CAPSULE.DR PO SCH (10:17)
[2022-05-09] MEDS: PREGABALIN 100 MG CAPSULE PO SCH ×2 (10:17→21:31)
[2022-05-09] MEDS: metoPROLOL SUCCINATE 25 MG TAB.SR.24H (FP) PO SCH (10:17)
[2022-05-09] MEDS: NIACIN 500 MG TABLET PO SCH (10:29)
[2022-05-09] MEDS: PRASUGREL HCL 5 MG TAB PO SCH (10:29)
[2022-05-09] MEDS: FLUTICASONE/SALMETEROL 100 MCG/50 MCG DISKUS IH SCH ×2 (10:29→21:31)
[2022-05-09] MEDS: RAMIPRIL 5 MG CAPSULE PO SCH (10:31)
[2022-05-09] MEDS: AZTREONAM 1 GM in SODIUM CHLORIDE 50 ML IVPB SCH (18:18)
[2022-05-09] MEDS: MONTELUKAST NA 10 MG TABLET PO SCH (21:31)
[2022-05-09] MEDS: ROSUVASTATIN CA 10 MG TABLET PO SCH (21:31)
[2022-05-10] MEDS: AZTREONAM 1 GM in SODIUM CHLORIDE 50 ML IVPB SCH ×3 (01:05→17:54)
[2022-05-10] MEDS: SODIUM CHLORIDE IVPB SCH ×2 (02:15→11:42)
[2022-05-10] MEDS: CLINDAMYCIN IVPB SCH ×2 (02:15→11:42)
[2022-05-10] MEDS: ALBUTEROL SO4 2.5/IPRATROPIUM 0.5 INH SOL 3 ML VIAL.NEB. NEB SCH ×3 (07:15→20:40)
[2022-05-10] MEDS: RAMIPRIL 5 MG CAPSULE PO SCH (09:10)
[2022-05-10] MEDS: metoPROLOL SUCCINATE 25 MG TAB.SR.24H (FP) PO SCH (09:10)
[2022-05-10] MEDS: PREGABALIN 100 MG CAPSULE PO SCH ×2 (09:10→22:24)
[2022-05-10] MEDS: DULoxetine HCL 30 MG CAPSULE.DR PO SCH (09:10)
[2022-05-10] MEDS: PANTOPRAZOLE 40 MG TABLET PO SCH (09:10)
[2022-05-10] MEDS: ASPIRIN 81 MG CHEWABLE TABLETS PO SCH (09:10)
[2022-05-10] MEDS: PRASUGREL HCL 5 MG TAB PO SCH (09:10)
[2022-05-10] MEDS: NIACIN 500 MG TABLET PO SCH (09:11)
[2022-05-10] MEDS: FLUTICASONE/SALMETEROL 100 MCG/50 MCG DISKUS IH SCH ×2 (09:11→22:24)
[2022-05-10 10:53] LABS: BASO % 0.3 % (0-2.0); EOS % 0.4 % (0-4.5); HEMATOCRIT 28.7 % (35.4-49); HEMOGLOBIN 9.8 GM/dL (11.7-16.9); MCH 26.3 pg (25.7-33.7); MCHC 34.2 g/dl (32.0-35.9); MEAN CELL VOLUME 76.9 fl (80-96); MEAN PLT VOLUME 7.2 fl (7.5-11.1); MONO % 4.8 % (3.8-10.2); NEUT % 89.5 % (42.8-82.8); PLATELET COUNT 342 10^3/uL (134-434); RBC 3.73 M/mm3 (4.00-5.60); RDW 17.6 % (11.9-15.9); WHITE BLOOD COUNT 15.1 K/mm3 (4.0-10.0)
[2022-05-10 11:14] LABS: CALCIUM 7.8 mg/dL (8.5-10.1)
[2022-05-10 11:15] LABS: ALBUMIN 2.6 g/dl (3.4-5.0); BLOOD UREA NITROGEN 9.1 mg/dL (7-18); MAGNESIUM 2.3 mg/dL (1.8-2.4)
[2022-05-10 11:18] LABS: CREATININE 0.7 mg/dL (0.55-1.3); PHOSPHOROUS 2.9 mg/dL (2.5-4.9); TOT PROT 5.8 g/dl (6.4-8.2)
[2022-05-10 11:19] LABS: BILIRUBIN,TOTAL 0.7 mg/dL (0.2-1)
[2022-05-10] MEDS: CLINDAMYCIN 600MG PREMIX IVPB 600 MG/50 ML BAG IVPB SCH ×2 (11:41→18:38)
[2022-05-10] MEDS: ROSUVASTATIN CA 10 MG TABLET PO SCH (22:24)
[2022-05-10] MEDS: MONTELUKAST NA 10 MG TABLET PO SCH (22:24)
[2022-05-11] MEDS: AZTREONAM 1 GM in SODIUM CHLORIDE 50 ML IVPB SCH ×3 (02:12→18:00)
[2022-05-11] MEDS: CLINDAMYCIN 600MG PREMIX IVPB 600 MG/50 ML BAG IVPB SCH ×3 (03:23→17:14)
[2022-05-11] MEDS: ALBUTEROL SO4 2.5/IPRATROPIUM 0.5 INH SOL 3 ML VIAL.NEB. NEB SCH ×3 (07:30→20:36)
[2022-05-11] MEDS: NIACIN 500 MG TABLET PO SCH (09:06)
[2022-05-11] MEDS: PRASUGREL HCL 5 MG TAB PO SCH (09:06)
[2022-05-11] MEDS: FLUTICASONE/SALMETEROL 100 MCG/50 MCG DISKUS IH SCH ×2 (09:06→22:07)
[2022-05-11] MEDS: RAMIPRIL 5 MG CAPSULE PO SCH (09:06)
[2022-05-11] MEDS: PREGABALIN 100 MG CAPSULE PO SCH ×2 (09:07→22:09)
[2022-05-11] MEDS: metoPROLOL SUCCINATE 25 MG TAB.SR.24H (FP) PO SCH (09:07)
[2022-05-11] MEDS: DULoxetine HCL 30 MG CAPSULE.DR PO SCH (09:07)
[2022-05-11] MEDS: PANTOPRAZOLE 40 MG TABLET PO SCH (09:07)
[2022-05-11 13:30] LABS: BASO % 0.4 % (0-2.0); EOS % 1.2 % (0-4.5); HEMATOCRIT 29.1 % (35.4-49); HEMOGLOBIN 9.4 GM/dL (11.7-16.9); LYMPH % 6.3 % (8-40); MCH 25.1 pg (25.7-33.7); MCHC 32.3 g/dl (32.0-35.9); MEAN CELL VOLUME 77.5 fl (80-96); MEAN PLT VOLUME 7.3 fl (7.5-11.1); MONO % 7.4 % (3.8-10.2); NEUT % 84.7 % (42.8-82.8); PLATELET COUNT 405 10^3/uL (134-434); RBC 3.75 M/mm3 (4.00-5.60); RDW 18.2 % (11.9-15.9); WHITE BLOOD COUNT 14.3 K/mm3 (4.0-10.0)
[2022-05-11 13:40] LABS: ALBUMIN 2.7 g/dl (3.4-5.0); BLOOD UREA NITROGEN 9.3 mg/dL (7-18); CALCIUM 7.8 mg/dL (8.5-10.1); CREATININE 0.7 mg/dL (0.55-1.3)
[2022-05-11 13:41] LABS: BILIRUBIN,TOTAL 0.8 mg/dL (0.2-1); MAGNESIUM 2.4 mg/dL (1.8-2.4)
[2022-05-11 13:44] LABS: PHOSPHOROUS 4.1 mg/dL (2.5-4.9)
[2022-05-11] MEDS: MONTELUKAST NA 10 MG TABLET PO SCH (22:09)
[2022-05-11] MEDS: ROSUVASTATIN CA 10 MG TABLET PO SCH (22:09)
[2022-05-12] MEDS: AZTREONAM 1 GM in SODIUM CHLORIDE 50 ML IVPB SCH ×3 (02:29→17:40)
[2022-05-12] MEDS: CLINDAMYCIN 600MG PREMIX IVPB 600 MG/50 ML BAG IVPB SCH ×3 (03:01→17:00)
[2022-05-12] MEDS: ALBUTEROL SO4 2.5/IPRATROPIUM 0.5 INH SOL 3 ML VIAL.NEB. NEB SCH (07:30)
[2022-05-12] MEDS: NIACIN 500 MG TABLET PO SCH (09:10)
[2022-05-12] MEDS: PRASUGREL HCL 5 MG TAB PO SCH (09:10)
[2022-05-12] MEDS: FLUTICASONE/SALMETEROL 100 MCG/50 MCG DISKUS IH SCH ×2 (09:10→21:39)
[2022-05-12] MEDS: RAMIPRIL 5 MG CAPSULE PO SCH (09:10)
[2022-05-12] MEDS: PREGABALIN 100 MG CAPSULE PO SCH ×2 (09:11→21:39)
[2022-05-12] MEDS: PANTOPRAZOLE 40 MG TABLET PO SCH (09:11)
[2022-05-12] MEDS: DULoxetine HCL 30 MG CAPSULE.DR PO SCH (09:11)
[2022-05-12] MEDS: ASPIRIN 81 MG CHEWABLE TABLETS PO SCH (09:11)
[2022-05-12] MEDS: metoPROLOL SUCCINATE 25 MG TAB.SR.24H (FP) PO SCH (09:11)
[2022-05-12 11:07] LABS: BASO % 0.5 % (0-2.0); EOS % 1.2 % (0-4.5); HEMATOCRIT 29.2 % (35.4-49); HEMOGLOBIN 9.4 GM/dL (11.7-16.9); LYMPH % 6.2 % (8-40); MCH 24.8 pg (25.7-33.7); MCHC 32.2 g/dl (32.0-35.9); MEAN CELL VOLUME 77.1 fl (80-96); MEAN PLT VOLUME 7.4 fl (7.5-11.1); MONO % 4.3 % (3.8-10.2); NEUT % 87.8 % (42.8-82.8); PLATELET COUNT 432 10^3/uL (134-434); RBC 3.79 M/mm3 (4.00-5.60); WHITE BLOOD COUNT 15.2 K/mm3 (4.0-10.0)
[2022-05-12] MEDS: ROSUVASTATIN CA 10 MG TABLET PO SCH (21:39)
[2022-05-12] MEDS: MONTELUKAST NA 10 MG TABLET PO SCH (21:39)
[2022-05-13] MEDS: CLINDAMYCIN 600MG PREMIX IVPB 600 MG/50 ML BAG IVPB SCH ×2 (01:06→10:06)
[2022-05-13] MEDS: AZTREONAM 1 GM in SODIUM CHLORIDE 50 ML IVPB SCH ×2 (01:37→10:08)
[2022-05-13 05:06] VITALS: TEMP 97.8
[2022-05-13] MEDS: RAMIPRIL 5 MG CAPSULE PO SCH (10:07)
[2022-05-13] MEDS: metoPROLOL SUCCINATE 25 MG TAB.SR.24H (FP) PO SCH (10:07)
[2022-05-13] MEDS: NIACIN 500 MG TABLET PO SCH (10:08)
[2022-05-13] MEDS: PRASUGREL HCL 5 MG TAB PO SCH (10:08)
[2022-05-13] MEDS: DULoxetine HCL 30 MG CAPSULE.DR PO SCH (10:08)
[2022-05-13] MEDS: PANTOPRAZOLE 40 MG TABLET PO SCH (10:09)
[2022-05-13] MEDS: FLUTICASONE/SALMETEROL 100 MCG/50 MCG DISKUS IH SCH (10:10)
[2022-05-13 12:28] LABS: CALCIUM 8.5 mg/dL (8.5-10.1)
[2022-05-13 12:29] LABS: ALBUMIN 2.8 g/dl (3.4-5.0)
[2022-05-13 12:32] LABS: CREATININE 0.7 mg/dL (0.55-1.3)
[2022-05-13 12:33] LABS: BASO % 0.4 % (0-2.0); BILIRUBIN,TOTAL 0.7 mg/dL (0.2-1); EOS % 1.5 % (0-4.5); HEMATOCRIT 29.2 % (35.4-49); HEMOGLOBIN 9.8 GM/dL (11.7-16.9); LYMPH % 6.7 % (8-40); MCH 25.8 pg (25.7-33.7); MCHC 33.6 g/dl (32.0-35.9); MEAN CELL VOLUME 76.8 fl (80-96); MONO % 4.9 % (3.8-10.2); NEUT % 86.5 % (42.8-82.8); PLATELET COUNT 450 10^3/uL (134-434); RDW 17.6 % (11.9-15.9); WHITE BLOOD COUNT 14.5 K/mm3 (4.0-10.0)
[2022-05-13 12:34] LABS: TOT PROT 6.2 g/dl (6.4-8.2)
[2022-05-13 14:05] VITALS: BP 122/63; PULSE 88
== END 2022-05-13 18:11 | disposition home or self-care (01) | DRG 483 ==
LOC: SUATTDRO 04:04 → JASUSAT 04:04 → J6S 04:05 → UNDOADMIN 04:05 → J6S 12:30 → UNDOADMIN 05-07 15:40 → J6S 05-07 15:40
PROVIDERS: ADMIT Internal Medicine; ATTEND Internal Medicine
PROC: 0RRJ0JZ Replacement of Right Shoulder Joint with Synthetic Substitute, Open Approach (ICD-10-PCS; principal; 2022-05-06 08:46)
DX: M19.011 Primary osteoarthritis, right shoulder (principal); J18.9 Pneumonia, unspecified organism; J96.01 Acute respiratory failure with hypoxia; A41.9 Sepsis, unspecified organism; D62 Acute posthemorrhagic anemia; I50.32 Chronic diastolic (congestive) heart failure; J44.9 Chronic obstructive pulmonary disease, unspecified; I25.10 Atherosclerotic heart disease of native coronary artery without angina pectoris; E78.5 Hyperlipidemia, unspecified; Z95.5 Presence of coronary angioplasty implant and graft; D72.829 Elevated white blood cell count, unspecified; Z88.1 Allergy status to other antibiotic agents; I11.0 Hypertensive heart disease with heart failure; I27.20 Pulmonary hypertension, unspecified; G62.9 Polyneuropathy, unspecified
CPT/HCPCS: 36415; 71045-TC-FY; 71046-TC-FY; 71275-TC; 73030-TC-RT-FY; 80053; 81003; 83036; 83605; 83735; 84100; 85025; 86140; 87040; 87070; 87086; 87205; 87899; 88305-TC; 88311-TC; 93005; 93010; 93971-TC; 94010; 94640; 94760; 97116-GP; 97162-GP; C1776; C9803-CS; Q9967; U0003; U0005